=== PATIENT | male | born 1935 | race African-American/Black ===

== ENCOUNTER 2020-04-17 09:06 | Inpatient (IN) | payer MEDICARE, OTHER ==
[~2020-04-17] VITALS: Ht 175.3 cm; Wt 67.3 kg
[2020-04-17 09:10] VITALS: BP 108/58
[2020-04-17] MEDS ORDERED: Aspirin Baby 81mg ORAL ONE (09:15)
[2020-04-17] MEDS ORDERED: Aspirin Baby 81mg ONE (09:17)
[2020-04-17] MEDS ORDERED: Sodium Chloride 550 ML IV SCH (09:45)
[2020-04-17 09:48] LABS: BASOPHILS % (AUTO) 0.7 % (0.0-2.0); EOSINOPHILS % (AUTO) 0.1 % (0.0-3.0); HEMATOCRIT 28.4 % (42.0-52.0); HEMOGLOBIN 8.7 G/DL (14.2-18.0); LYMPHOCYTES % (AUTO) 13.7 % (20.0-45.0); MEAN CORPUSCULAR VOLUME 82 FL (80-99); MONOCYTES % (AUTO) 12.9 % (1.0-10.0); NEUTROPHILS % (AUTO) 72.5 % (45.0-75.0); PLATELET COUNT 124 K/UL (150-450); RED BLOOD COUNT 3.48 M/UL (4.70-6.10); RED CELL DISTRIBUTION WIDTH 15.5 % (11.6-14.8); WHITE BLOOD COUNT 7.6 K/UL (4.8-10.8)
[2020-04-17 09:56] LABS: ANION GAP 5 mmol/L (5-15); BLOOD UREA NITROGEN 23 mg/dL (7-18); CALCIUM 9.1 MG/DL (8.5-10.1); CARBON DIOXIDE 36 MMOL/L (21-32); CHLORIDE 104 MMOL/L (98-107); CREATININE 1.2 MG/DL (0.55-1.30); POTASSIUM 4.4 MMOL/L (3.5-5.1); SODIUM 144 MMOL/L (136-145)
[2020-04-17 10:00] LABS: ALANINE AMINOTRANSFERASE 14 U/L (12-78); ALBUMIN/GLOBULIN RATIO 0.7 (1.0-2.7); ALKALINE PHOSPHATASE 53 U/L (46-116); ASPARTATE AMINO TRANSFERASE 17 U/L (15-37); BILIRUBIN,TOTAL 0.4 MG/DL (0.2-1.0)
[2020-04-17] MEDS ORDERED: Metoprolol Tartrate 5mg/5ml Inj IVP ONE (10:15)
[2020-04-17 12:00] VITALS: BP 133/75
[2020-04-17] MEDS ORDERED: DOCUSATE SODIU100 MG ORAL (12:11)
[2020-04-17] MEDS ORDERED: MIRALAX17 G2 ORAL (12:12)
[2020-04-17] MEDS ORDERED: TRAMADOL HCL50 MG ORAL (12:12)
[2020-04-17] MEDS ORDERED: SIMVASTATIN10 MG ORAL (12:12)
[2020-04-17] MEDS ORDERED: MILK OF MA400 MG/51 ORAL (12:12)
[2020-04-17] MEDS ORDERED: METOPROLOL TART25 MG ORAL (12:12)
[2020-04-17] MEDS ORDERED: REFRESH PLUS1 EACH OP (12:12)
[2020-04-17] MEDS ORDERED: PRESERVISION A1 EAC2 PO (12:12)
[2020-04-17] MEDS ORDERED: PROSCAR5 MG ORAL (12:12)
[2020-04-17] MEDS ORDERED: METOPROLOL SUCC50 MG ORAL (12:12)
[2020-04-17] MEDS ORDERED: INCRUSE ELLI62.5 MCG IH (12:12)
[2020-04-17] MEDS ORDERED: LATANOPROST2.5 ML BOTH EYES (12:12)
[2020-04-17] MEDS ORDERED: NITRO0.4 SL (12:12)
[2020-04-17] MEDS ORDERED: FLUTICASONE PRO16 G1 NASAL (12:12)
[2020-04-17] MEDS ORDERED: THEOPHYLLI80 MG/151 PO (12:12)
[2020-04-17] MEDS ORDERED: VITAMIN C500 M1 ORAL (12:12)
[2020-04-17] MEDS ORDERED: TRUSOPT10 ML BOTH EYES (12:12)
[2020-04-17] MEDS ORDERED: Acetaminophen 500mg (ES) tab ORAL PRN (13:30)
--- NOTE | 2020-04-17 14:08 | Emergency Room Report ---
History of Present Illness General Chief Complaint: Chest Pain Source: Patient Present Illness HPI 85-year-old male here with chest pain. Patient is that his chest pain is substernal, does not otherwise radiate. Is pressure-like in nature. He has not attempted to take any medications to alleviate the pain. Worsened exertion. No fevers, chills, palpitations, shortness of breath, back pain, abdominal pain, nausea, vomiting, diarrhea, dysuria, leg swelling. 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 Past Medical History: No History, Except For Hx Hypertension: Yes Review of Systems All Other Systems: negative except mentioned in HPI Physical Exam Vital Signs Date Time Temp Pulse Resp B/P (MAP) Pulse Ox O2 Delivery O2 Flow Rate FiO2 04/17/20 08:58 98.1 138 20 132/76 (94) 96 Nasal Cannula 2.0 Sp02 EP Interpretation: reviewed, normal General Appearance: no apparent distress, alert, non-toxic Head: normocephalic, atraumatic Eyes: bilateral eye normal inspection, bilateral eye PERRL ENT: hearing grossly normal, normal pharynx, no angioedema, normal voice Neck: full range of motion, supple/symm/no masses Respiratory: chest non-tender, lungs clear, normal breath sounds, speaking full sentences, other - On submental oxygen at baseline. Normal oxygen saturation on 2 L nasal cannula and speaking comfortably in full sentences Cardiovascular #1: regular rate, rhythm, no edema Cardiovascular #2: 2+ carotid (R), 2+ carotid (L), 2+ radial (R), 2+ radial (L) , 2+ dorsalis pedis (R), 2+ dorsalis pedis (L) Gastrointestinal: normal bowel sounds, non tender, soft, non-distended, no guarding, no rebound Rectal: deferred Genitourinary: normal inspection, no CVA tenderness Musculoskeletal: back normal, normal range of motion, calf tenderness, gait/ station normal, non-tender Neurologic: alert, motor strength/tone normal, oriented x3, sensory intact, responsive, speech normal Psychiatric: judgement/insight normal, memory normal, mood/affect normal, no suicidal/homicidal ideation Reflexes: 3+ bicep (R), 3+ bicep (L), 3+ tricep (R), 3+ tricep (L), 3+ knee (R) , 3+ knee (L) Lymphatic: no adenopathy Medical Decision Making Diagnostic Impression: Primary Impression: Chest pain Additional Impression: NSTEMI (non-ST elevated myocardial infarction) ER Course Laboratory Tests Test 04/17/20 09:05 White Blood Count 7.6 K/UL (4.8-10.8) Red Blood Count 3.48 M/UL (4.70-6.10) L Hemoglobin 8.7 G/DL (14.2-18.0) L Hematocrit 28.4 % (42.0-52.0) L Mean Corpuscular Volume 82 FL (80-99) Mean Corpuscular Hemoglobin 24.9 PG (27.0-31.0) L Mean Corpuscular Hemoglobin Concent 30.5 G/DL (32.0-36.0) L Red Cell Distribution Width 15.5 % (11.6-14.8) H Platelet Count 124 K/UL (150-450) L Mean Platelet Volume 7.2 FL (6.5-10.1) Neutrophils (%) (Auto) 72.5 % (45.0-75.0) Lymphocytes (%) (Auto) 13.7 % (20.0-45.0) L Monocytes (%) (Auto) 12.9 % (1.0-10.0) H Eosinophils (%) (Auto) 0.1 % (0.0-3.0) Basophils (%) (Auto) 0.7 % (0.0-2.0) Sodium Level 144 MMOL/L (136-145) Potassium Level 4.4 MMOL/L (3.5-5.1) Chloride Level 104 MMOL/L (98-107) Carbon Dioxide Level 36 MMOL/L (21-32) H Anion Gap 5 mmol/L (5-15) Blood Urea Nitrogen 23 mg/dL (7-18) H Creatinine 1.2 MG/DL (0.55-1.30) Estimated Glomerular Filtration Rate > 60 mL/min (>60) Glucose Level 128 MG/DL (74-106) H Calcium Level 9.1 MG/DL (8.5-10.1) Total Bilirubin 0.4 MG/DL (0.2-1.0) Aspartate Amino Transferase (AST) 17 U/L (15-37) Alanine Aminotransferase (ALT) 14 U/L (12-78) Alkaline Phosphatase 53 U/L (46-116) Troponin I 0.065 ng/mL (0.000-0.056) Total Protein 7.2 G/DL (6.4-8.2) Albumin 3.0 G/DL (3.4-5.0) L Globulin 4.2 g/dL Albumin/Globulin Ratio 0.7 (1.0-2.7) L Microbiology Date/Time Source Procedure Growth Status 04/17/20 09:25 Nasopharynx SARS-CoV-2 RdRp Gene Assay - Final Complete Chest x-ray: Vascular congestion, right lower lung opacity small right pleural effusion indicate CHF, differential includes pneumonitis 84-year-old male here with chest pain. Patient was hemodynamically stable in the emergency department. Patient is on oxygen 2 L nasal cannula at baseline for COPD and CHF. Chest x-ray showed evidence of vascular congestion but patient did not show any evidence of respiratory distress and was not complaining of any shortness of breath whatsoever. CBC, CMP unremarkable. Troponin mildly elevated 0.065. Patient received aspirin. EKG did not show any evidence of acute myocardial infarction. Patient was admitted to telemetry. Last Vital Signs Date Time Temp Pulse Resp B/P (MAP) Pulse Ox O2 Delivery O2 Flow Rate FiO2 04/17/20 12:00 98.1 102 18 133/75 100 Nasal Cannula 2.0 Referrals: NON PHYSICIAN (PCP) Jhoan Pham M.D. Apr 17, 2020 14:08
[2020-04-17 16:00] VITALS: BP 120/61
--- NOTE | 2020-04-17 17:00 | Consultation ---
DATE OF CONSULTATION: 04/17/2020 INFECTIOUS DISEASE CONSULTATION CONSULTING PHYSICIAN: Jonah Arnold MD. PRIMARY ATTENDING: Baljinder Meraz MD. REASON FOR CONSULT: Abnormal chest x-ray, COPD. HISTORY OF PRESENT ILLNESS: This is an 84-year-old male admitted today from longterm because of substernal chest pain. Patient has COPD. Has chronic coughing and chronic shortness of breath and is on supplemental oxygen at nursing facility. PAST MEDICAL HISTORY: COPD, difficulty of walking, hypertension, anemia, dependence on oxygen. ALLERGIES: Allergic to lisinopril. MEDICATIONS: Got a dose of metoprolol, aspirin in ER. SOCIAL HISTORY: care home resident. Single. He states that he has a daughter who is in convalescent home. He is an ex-smoker, ex-drinking. REVIEW OF SYSTEMS: No fever. No chills. Has chronic cough, chronic shortness of breath. Substernal chest pain that is better, more with breathing. No nausea. No vomiting. No dysuria. Has difficulty of walking. PHYSICAL EXAMINATION: VITAL SIGNS: Temperature 98.1, pulse 102, blood pressure 133/75. GENERAL APPEARANCE: No acute distress. HEAD AND NECK: He has dentures. HEART: Tachycardic. LUNGS: Has decreased breathing sounds. Getting oxygen by nasal cannula. ABDOMEN: Flat, soft, nontender. EXTREMITIES: No edema. Has muscle atrophy. NEUROLOGIC: Awake, alert, oriented. LABORATORY DATA: Sodium 144, potassium 4.4, chloride 104, bicarb 36, BUN 23, creatinine 1.2, glucose is 128. Troponin was elevated at 0.065. WBC 7.6, hemoglobin 8.7, hematocrit 28.4, platelets is 124. COVID test was negative. Patient had a chest x-ray. Official report is pending, but seems to have some infiltrate. Chronic changes in the right lower lobe and left paratracheal area. IMPRESSION: COPD. Has chest pain and elevated troponin. Has tachycardia, anemia, and hypertension by history. RECOMMENDATION: Observe off antibiotic. We will follow up the labs and cultures. At the end of my exam, I thank Dr. Meraz for involving me in the care of this patient. Jonah Arnold M.D. DR: JESSIKA JOB#: [id number] CC: MAMI
--- NOTE | 2020-04-17 17:14 | Consultation ---
DATE OF CONSULTATION: 04/17/2020 PULMONARY CONSULTATION CONSULTING PHYSICIAN: Florian Crowley MD. HISTORY OF PRESENT ILLNESS: This is an 84-year-old male who was admitted to the hospital with chest pain. Patient presented to the hospital with pressure-like substernal chest pain. He was seen, evaluated, and subsequently admitted to the hospital for management and care. PAST MEDICAL HISTORY: Notable for hypertension. ALLERGIES: To lisinopril. HOME MEDICATIONS: Reviewed and reconciled in chart. REVIEW OF SYSTEMS: Denies any headaches, hematemesis, melena, hematochezia, night sweats, or weight loss. PHYSICAL EXAMINATION: GENERAL: Reveals an 84-year-old male. HEENT: Unremarkable. LUNGS: Clear breath sounds bilaterally. ABDOMEN: Soft. EXTREMITIES: There is no edema. NEUROLOGIC: Nonfocal. VITAL SIGNS: Blood pressure of 130/80, heart rate 84, respirations 18, O2 saturation 98% on 2L oxygen. LABORATORY DATA: Lab testing shows hemoglobin 8.7, otherwise normal CBC and BMP. Troponin 0.06, which is mildly elevated. IMPRESSION: 1. Chest pain. 2. Troponin leak. 3. Suspect non-STEMI. DISCUSSION: Admit to the hospital. Needs Cardiology evaluation. Blood pressure control. DVT prophylaxis. Cardiac diet. Serial troponins. We will follow carefully. Florian Crowley M.D. DR: BENNETT JOB#: [id number] CC:
[2020-04-17 20:00] VITALS: BP 141/77
--- NOTE | 2020-04-17 22:14 | History and Physical Report ---
DATE OF ADMISSION: 04/17/2020 HISTORY OF PRESENT ILLNESS: Patient admitted for chest pain, rule out acute coronary syndrome, rule out non-STEMI. Patient has been having chest pain for a couple of days. Troponin is borderline elevated. EKG shows old right bundle-branch block. Patient got aspirin in the emergency room as well as nitroglycerin. According to the ER doctor, COVID negative. Chest pain, shortness of breath, interstitial infiltrates. He apparently has a history of COVID positive in the past. Hemoglobin also was low. Denies shortness of breath. Denies cough. Denies nausea, vomiting, or diarrhea. Denies headaches. Denies fever or chills. Patient denies also palpitations. PAST MEDICAL HISTORY: Significant for hypertension, history of , glaucoma, BPH, constipation, hyperlipidemia, history of COPD. ALLERGIES: To lisinopril. PAST SURGICAL HISTORY: Unknown. FAMILY HISTORY: Noncontributory. SOCIAL HISTORY: No history of smoking, alcohol, or illicit drugs. MEDICATIONS: Zocor, metoprolol, finasteride, docusate. REVIEW OF SYSTEMS: HEENT: Denies headaches. RESPIRATORY: Denies shortness of breath. Denies cough. CARDIOVASCULAR: Does have chest pain for couple of days. Denies radiation as well. Patient has orthopnea. GASTROINTESTINAL: Denies nausea, vomiting, or diarrhea. EXTREMITIES: Does have chronic pain in extremities. . CENTRAL NERVOUS SYSTEM: Denies change in speech pattern. PHYSICAL EXAMINATION: VITAL SIGNS: Temperature is 98.1, pulse 102, blood pressure is 130/75. HEENT: PERRLA. CHEST: Clear to auscultation. CARDIOVASCULAR: Tachycardic. No murmur. GASTROINTESTINAL: Soft, nontender, nondistended. No organomegaly. EXTREMITIES: No edema. Moves all four extremities. NEUROLOGIC: Sensory intact to light touch. Reflexes equal on both sides. EKG shows right bundle-branch block, which is old. LABORATORY DATA: WBC of 7.6, hemoglobin 8.7, platelets 124. Sodium 144, potassium 4.4, BUN of 20, creatinine 1.2. Troponin 0.065. ASSESSMENT AND PLAN: Non-STEMI, rule out acute coronary syndrome. Also pneumonia on the x-ray, respiratory insufficiency, anemia. I have asked Dr. Jonah Arnold and Dr. Crowley to help with the management of pneumonia and Dr. Saeed for chest pain, rule out non-STEMI. Baljinder Meraz M.D. DR: KATIE JOB#: [id number] CC:
[2020-04-18] VITALS (10 sets, daily range): BP systolic 108–143; BP diastolic 53–84
[2020-04-18] MEDS ORDERED: dilTIAZem Premix 125mg/125ml 125 ML IVPB SCH ×2 (10:00→10:30)
[2020-04-18] MEDS ORDERED: Acetaminophen 500mg (ES) tab ORAL PRN (10:30)
--- NOTE | 2020-04-18 10:42 | Diagnostic Imaging Report ---
EXAM: XR Chest, 1 View CLINICAL HISTORY: CP TECHNIQUE: Frontal view of the chest. COMPARISON: Chest radiograph April 17, 2020 FINDINGS/IMPRESSION: Patchy airspace opacity within the right [id number] and left lower lung limon. The degree of opacity in the right lower lung field has mildly improved. Continued chest radiograph follow-up recommended. Stable bilateral pleural effusions, right great than left. Superimposed mild vascular congestion. No pneumothorax. Cardiomegaly. Calcified aorta.
--- NOTE | 2020-04-18 11:28 | Cardiac Electrophysiology PN ---
Subjective Subjective [id number] Objective Last 24 Hour Vital Signs Date Time Temp Pulse Resp B/P (MAP) Pulse Ox O2 Delivery O2 Flow Rate FiO2 04/18/20 08:54 126 114/69 04/18/20 08:02 Nasal Cannula 2.0 04/18/20 08:00 97.9 126 114/69 (84) 04/18/20 08:00 107 04/18/20 04:00 98.4 96 111/64 (80) 04/18/20 04:00 100 04/18/20 00:00 127 04/18/20 00:00 97.4 128 143/84 (103) 04/17/20 23:45 128 141/77 04/17/20 21:00 Nasal Cannula 2.0 04/17/20 20:00 98.9 123 141/77 (98) 04/17/20 20:00 121 04/17/20 16:00 107 04/17/20 16:00 98.9 111 120/61 (80) 04/17/20 14:31 Nasal Cannula 2.0 04/17/20 12:37 97.9 87 18 129/87 99 Nasal Cannula 2.0 04/17/20 12:00 98.1 102 18 133/75 100 Nasal Cannula 2.0 Intake and Output 04/17/20 04/18/20 19:00 07:00 Intake Total 120 ml 200 ml Output Total 200 ml 300 ml Balance -80 ml -100 ml Intake Oral 120 ml 200 ml Output Urine Total 200 ml 300 ml # Voids 2 Laboratory Tests Test 04/18/20 05:40 Troponin I 0.016 ng/mL (0.000-0.056) Microbiology Date/Time Source Procedure Growth Status 04/17/20 09:25 Nasopharynx SARS-CoV-2 RdRp Gene Assay - Final Complete 04/17/20 12:15 Rectum Received Cade Saeed MD Apr 18, 2020 11:28
[2020-04-18] MEDS ORDERED: Amiodarone 200mg tab ORAL SCH (11:30)
--- NOTE | 2020-04-18 12:42 | Pulmonology Progress Note ---
Subjective Interval Events: Transferred to ICU due to rapid a fib Constitutional: Reports: no symptoms HEENT: Repors: no symptoms Respiratory: Reports: no symptoms Cardiovascular: Reports: no symptoms Allergies: Coded Allergies: LISINOPRIL (Verified Allergy, Unknown, 04/17/20) Objective Last 24 Hour Vital Signs Date Time Temp Pulse Resp B/P (MAP) Pulse Ox O2 Delivery O2 Flow Rate FiO2 04/18/20 12:00 98.0 103 30 108/53 (71) 99 04/18/20 11:46 105 04/18/20 09:54 138 04/18/20 08:54 126 114/69 04/18/20 08:02 Nasal Cannula 2.0 04/18/20 08:00 97.9 126 114/69 (84) 04/18/20 08:00 107 04/18/20 04:00 98.4 96 111/64 (80) 04/18/20 04:00 100 04/18/20 00:00 127 04/18/20 00:00 97.4 128 143/84 (103) 04/17/20 23:45 128 141/77 04/17/20 21:00 Nasal Cannula 2.0 04/17/20 20:00 98.9 123 141/77 (98) 04/17/20 20:00 121 04/17/20 16:00 107 04/17/20 16:00 98.9 111 120/61 (80) 04/17/20 14:31 Nasal Cannula 2.0 Intake and Output 04/17/20 04/18/20 19:00 07:00 Intake Total 120 ml 200 ml Output Total 200 ml 300 ml Balance -80 ml -100 ml Intake Oral 120 ml 200 ml Output Urine Total 200 ml 300 ml # Voids 2 General Appearance: no acute distress HEENT: normocephalic Respiratory: chest wall non-tender, decreased breath sounds, accessory muscle use Cardiovascular: normal peripheral pulses Abdomen: normal bowel sounds Microbiology Date/Time Source Procedure Growth Status 04/17/20 09:25 Nasopharynx SARS-CoV-2 RdRp Gene Assay - Final Complete 04/17/20 12:15 Rectum Received Laboratory Tests 04/18/20 05:40: Troponin I 0.016 04/18/20 11:48: Troponin I [Pending] Current Medications Medications (Trade) Dose Ordered Sig/Eulalia Route PRN Reason Start Time Stop Time Status Last Admin Dose Admin Acetaminophen (Tylenol) 500 mg Q4H PRN ORAL Mild Pain (Pain Scale 1-3) 04/18/20 10:30 05/17/20 10:29 Amiodarone HCl (Cordarone) 400 mg EVERY 12 HOURS ORAL 04/18/20 21:00 07/17/20 20:59 Aspirin (Ecotrin) 81 mg DAILY ORAL 04/19/20 09:00 06/03/20 08:59 Atorvastatin Calcium (Lipitor) 20 mg BEDTIME ORAL 04/18/20 21:00 07/17/20 20:59 Metoprolol Tartrate (Lopressor) 50 mg Q12HR ORAL 04/18/20 21:00 07/17/20 20:59 Assessment/Plan Assessment/Plan IMPRESSION: 1. Chest pain. 2. Troponin leak. 3. Suspect non-STEMI. 4. COPD DISCUSSION: Noted Cardiology evaluation. Blood pressure control. DVT prophylaxis. Cardiac diet. Serial troponins. I will follow carefully. Will add inhaled atrovent and budesonide Azar Garrett Omar Syed MD Apr 18, 2020 12:42
--- NOTE | 2020-04-18 12:52 | Infectious Diseases Prog Note ---
Assessment/Plan Assessment/Plan IMPRESSION: COPD. Chest pain and elevated troponin. Atrial fibrillation & RVR Anemia, Hypertension RECOMMENDATION: Observe off antibiotic. Subjective ROS Limited/Unobtainable: No Constitutional: Reports: no symptoms Respiratory: Reports: productive cough Cardiovascular: Reports: chest pain, other - transferred to ICU because of Atrial fibrillation & RVR Allergies: Coded Allergies: LISINOPRIL (Verified Allergy, Unknown, 04/17/20) Objective Last 24 Hour Vital Signs Date Time Temp Pulse Resp B/P (MAP) Pulse Ox O2 Delivery O2 Flow Rate FiO2 04/18/20 12:00 98.0 103 30 108/53 (71) 99 04/18/20 11:46 105 04/18/20 09:54 138 04/18/20 08:54 126 114/69 04/18/20 08:02 Nasal Cannula 2.0 04/18/20 08:00 97.9 126 114/69 (84) 04/18/20 08:00 107 04/18/20 04:00 98.4 96 111/64 (80) 04/18/20 04:00 100 04/18/20 00:00 127 04/18/20 00:00 97.4 128 143/84 (103) 04/17/20 23:45 128 141/77 04/17/20 21:00 Nasal Cannula 2.0 04/17/20 20:00 98.9 123 141/77 (98) 04/17/20 20:00 121 04/17/20 16:00 107 04/17/20 16:00 98.9 111 120/61 (80) 04/17/20 14:31 Nasal Cannula 2.0 Height (Feet): 5 Height (Inches): 9.00 Weight (Pounds): 159 HEENT: mucous membranes moist Respiratory/Chest: decreased breath sounds Cardiovascular: tachycardia Abdomen: soft, non tender Extremities: no edema Neurologic/Psychiatric: alert, oriented x 3, responsive Microbiology Date/Time Source Procedure Growth Status 04/17/20 09:25 Nasopharynx SARS-CoV-2 RdRp Gene Assay - Final Complete 04/17/20 12:15 Rectum Received Laboratory Tests Test 04/18/20 05:40 04/18/20 11:48 Troponin I 0.016 ng/mL (0.000-0.056) Pending Current Medications Medications (Trade) Dose Ordered Sig/Eulalia Route PRN Reason Start Time Stop Time Status Last Admin Dose Admin Acetaminophen (Tylenol) 500 mg Q4H PRN ORAL Mild Pain (Pain Scale 1-3) 04/18/20 10:30 05/17/20 10:29 Amiodarone HCl (Cordarone) 400 mg EVERY 12 HOURS ORAL 04/18/20 21:00 07/17/20 20:59 Aspirin (Ecotrin) 81 mg DAILY ORAL 04/19/20 09:00 06/03/20 08:59 Atorvastatin Calcium (Lipitor) 20 mg BEDTIME ORAL 04/18/20 21:00 07/17/20 20:59 Budesonide (Pulmicort) 0.25 mg EVERY 12 HOURS N 04/18/20 21:00 07/17/20 20:59 UNV Ipratropium [place] (Atrovent) 500 mcg Q6HRT N 04/18/20 13:00 04/23/20 12:59 UNV Methylprednisolone Sodium Succinate (Solu-MEDROL) 40 mg EVERY 6 HOURS IVP 04/18/20 12:45 07/17/20 12:44 UNV Metoprolol Tartrate (Lopressor) 50 mg Q12HR ORAL 04/18/20 21:00 07/17/20 20:59 Jonah Arnold MD Apr 18, 2020 12:52
[2020-04-18] MEDS: Solu-MEDROL 40mg Inj IVP SCH ×2 (13:32→20:28)
[2020-04-18] MEDS: Ipratropium 0.02% Inh Soln 2.5ml UD HHN SCH ×2 (14:15→19:34)
--- NOTE | 2020-04-18 15:59 | Consultation ---
DATE OF CONSULTATION: 04/18/2020 CARDIOLOGY CONSULTATION CONSULTING PHYSICIAN: Cade Saeed MD REFERRING PHYSICIAN: Baljinder Meraz MD REASON FOR CONSULTATION: Atrial fibrillation with rapid ventricular response. HISTORY OF PRESENT ILLNESS: The patient is an 84-year-old gentleman with history of hypertension, who presented to the emergency room complaining of substernal chest pain that does not radiate. The pain was pressure-like. The patient was admitted to telemetry floor, however, this morning developed atrial fibrillation with rapid ventricular response with the heart rate of 150s. This was confirmed by a 12-lead electrocardiogram. The patient was then transferred to intensive care unit to be started on Cardizem drip. The patient already received metoprolol 25 mg b.i.d. At the time of my evaluation, the patient is in intensive care unit. Denies any chest pain. REVIEW OF SYSTEMS: Negative other than what was mentioned in the history of present illness. PAST MEDICAL HISTORY: As mentioned above. FAMILY HISTORY: Noncontributory. SOCIAL HISTORY: Does not smoke or drink alcohol. PHYSICAL EXAMINATION: VITAL SIGNS: Show blood pressure of 114/69, pulse 140 that currently improved to 110 as he converted to sinus rhythm, and respirations 18. HEAD AND NECK: Shows positive JVD. LUNGS: Decreased breath sounds. CARDIOVASCULAR: Shows regular S1 and S2 with no gallop or murmur. ABDOMEN: Soft. EXTREMITIES: No pitting edema. LABORATORY AND DIAGNOSTIC DATA: His initial EKG on April 17 showed sinus tachycardia rate at 137 and incomplete right bundle-branch block. His EKG from today at 8:17 a.m. showed atrial fibrillation with rapid ventricular response at 151 beats per minute with inferolateral T-wave inversion suggestive of inferior ischemia. Labs show white count 7.6, hemoglobin 8.7, hematocrit 28.4, platelet count 124,000. Sodium 144, potassium 4.4, BUN of 20, creatinine 1.2, and glucose of 128. First troponin 0.065 and second troponin 0.016. ASSESSMENT AND PLAN: 1. [id number] myocardial infarction with chest pain, inferolateral T-wave inversion, and elevated troponin. This could have been precipitated by atrial fibrillation. His second troponin today is negative. We will get an echocardiogram to evaluate for ejection fraction and wall motion abnormality. Continue on aspirin and increase the metoprolol to 50 mg b.i.d. I will start the patient also on amiodarone 400 mg b.i.d. to prevent recurrence of atrial fibrillation. 2. Newly diagnosed atrial fibrillation with rapid ventricular response. Again, we will start the patient on amiodarone 400 mg twice a day and metoprolol. The patient already converted to sinus rhythm. If he continues to have recurrence of atrial fibrillation, the patient will need anticoagulation. 3. Hypertension. Maximize beta-gunnar. Doubt he has been in atrial fibrillation with this. 4. Anemia. Hemoglobin of 8.7. Thank you very much for allowing me to participate in the care of this patient. Please do not hesitate to contact me for any questions regarding my evaluation. Cade Saeed M.D. DR: TRACI JOB#: [id number] CC:
[2020-04-18] MEDS: Metoprolol Tartrate 50mg tab ORAL SCH (20:28)
[2020-04-18] MEDS: Amiodarone 200mg tab ORAL SCH (20:29)
[2020-04-18] MEDS ORDERED: Atorvastatin 20mg tab ORAL SCH (21:00)
[2020-04-18] MEDS: Budesonide HHN 0.25mg/2ml ud HHN SCH (21:06)
--- NOTE | 2020-04-18 21:11 | General Progress Note ---
Assessment/Plan Problem List: (1) Chest pain ICD Codes: R07.9 - Chest pain, unspecified SNOMED: 02050190 (2) NSTEMI (non-ST elevated myocardial infarction) ICD Codes: I21.4 - Non-ST elevation (NSTEMI) myocardial infarction SNOMED: 78362296 Status: progressing Assessment/Plan: afebrile cp r/o acs vitals stable nstemi check trop Subjective ROS Limited/Unobtainable: Yes Allergies: Coded Allergies: LISINOPRIL (Verified Allergy, Unknown, 04/17/20) Objective Last 24 Hour Vital Signs Date Time Temp Pulse Resp B/P (MAP) Pulse Ox O2 Delivery O2 Flow Rate FiO2 04/18/20 21:07 84 20 100 Nasal Cannula 2.0 28 81 20 100 04/18/20 20:28 98 126/70 04/18/20 20:00 92 04/18/20 20:00 Nasal Cannula 2.0 04/18/20 19:37 98.5 90 20 120/71 (87) 99 04/18/20 19:35 99 22 100 Nasal Cannula 3.0 32 96 22 100 04/18/20 19:35 95 22 99 Nasal Cannula 3.0 32 04/18/20 16:00 116 04/18/20 16:00 98.2 114 30 131/72 (91) 98 04/18/20 16:00 Nasal Cannula 2.0 04/18/20 15:00 109 32 125/68 (87) 99 04/18/20 14:15 108 26 98 Nasal Cannula 3.0 32 04/18/20 14:15 108 26 94 Nasal Cannula 3.0 32 106 34 98 04/18/20 14:00 109 42 112/73 (86) 97 04/18/20 13:00 111 27 116/72 (87) 97 04/18/20 12:00 98.0 103 30 108/53 (71) 99 04/18/20 12:00 Room Air 04/18/20 11:46 105 04/18/20 11:00 107 30 121/54 (76) 99 04/18/20 09:54 138 04/18/20 08:54 126 114/69 04/18/20 08:02 Nasal Cannula 2.0 04/18/20 08:00 97.9 126 114/69 (84) 04/18/20 08:00 107 04/18/20 04:00 98.4 96 111/64 (80) 04/18/20 04:00 100 04/18/20 00:00 127 04/18/20 00:00 97.4 128 143/84 (103) 04/17/20 23:45 128 141/77 Intake and Output 04/17/20 04/18/20 19:00 07:00 Intake Total 120 ml 200 ml Output Total 200 ml 300 ml Balance -80 ml -100 ml Intake Oral 120 ml 200 ml Output Urine Total 200 ml 300 ml # Voids 2 Laboratory Tests 04/18/20 05:40: Troponin I 0.016 04/18/20 11:48: Troponin I 0.028 04/18/20 18:00: Troponin I 0.024 Height (Feet): 5 Height (Inches): 9.00 Weight (Pounds): 159 Baljinder Meraz MD Apr 18, 2020 21:11
[2020-04-19] VITALS: BP 113/66
[2020-04-19] MEDS: Ipratropium 0.02% Inh Soln 2.5ml UD HHN SCH ×4 (01:01→19:09)
[2020-04-19] MEDS: Solu-MEDROL 40mg Inj IVP SCH ×4 (01:58→21:11)
[2020-04-19 04:00] VITALS: BP 125/73
[2020-04-19] MEDS: Budesonide HHN 0.25mg/2ml ud HHN SCH ×2 (07:55→21:41)
[2020-04-19 07:59] VITALS: BP 115/63
[2020-04-19] MEDS: Amiodarone 200mg tab ORAL SCH ×2 (08:34→21:10)
[2020-04-19] MEDS: Metoprolol Tartrate 50mg tab ORAL SCH ×2 (08:35→21:10)
[2020-04-19] MEDS ORDERED: Aspirin EC 81mg tab ORAL SCH (09:00)
--- NOTE | 2020-04-19 10:25 | Pulmonology Progress Note ---
Subjective ROS Limited/Unobtainable: Yes Interval Events: Now in [facility]; feeling better Constitutional: Reports: no symptoms HEENT: Repors: no symptoms Respiratory: Reports: no symptoms Cardiovascular: Reports: no symptoms Allergies: Coded Allergies: LISINOPRIL (Verified Allergy, Unknown, 04/17/20) Objective Last 24 Hour Vital Signs Date Time Temp Pulse Resp B/P (MAP) Pulse Ox O2 Delivery O2 Flow Rate FiO2 04/19/20 08:35 86 137/66 04/19/20 08:05 77 20 100 Nasal Cannula 2.0 28 79 18 99 04/19/20 08:00 Nasal Cannula 1.0 04/19/20 08:00 77 04/19/20 07:59 96.4 67 24 115/63 (80) 100 04/19/20 07:45 75 18 100 Nasal Cannula 2.0 28 74 18 98 04/19/20 04:00 Nasal Cannula 2.0 04/19/20 04:00 97.7 71 18 125/73 (90) 99 04/19/20 04:00 71 04/19/20 01:02 78 20 100 Nasal Cannula 2.0 28 77 20 99 04/19/20 00:00 Nasal Cannula 2.0 04/19/20 00:00 96.9 73 20 113/66 (82) 99 04/18/20 23:30 70 04/18/20 21:07 84 20 100 Nasal Cannula 2.0 28 81 20 100 04/18/20 20:28 98 126/70 04/18/20 20:00 92 04/18/20 20:00 Nasal Cannula 2.0 04/18/20 20:00 Nasal Cannula 2.0 04/18/20 19:37 98.5 90 20 120/71 (87) 99 04/18/20 19:35 99 22 100 Nasal Cannula 3.0 32 96 22 100 04/18/20 19:35 95 22 99 Nasal Cannula 3.0 32 04/18/20 16:00 116 04/18/20 16:00 98.2 114 30 131/72 (91) 98 04/18/20 16:00 Nasal Cannula 2.0 04/18/20 15:00 109 32 125/68 (87) 99 04/18/20 14:15 108 26 98 Nasal Cannula 3.0 32 04/18/20 14:15 108 26 94 Nasal Cannula 3.0 32 106 34 98 04/18/20 14:00 109 42 112/73 (86) 97 04/18/20 13:00 111 27 116/72 (87) 97 04/18/20 12:00 98.0 103 30 108/53 (71) 99 04/18/20 12:00 Room Air 04/18/20 11:46 105 04/18/20 11:00 107 30 121/54 (76) 99 Intake and Output 04/18/20 04/19/20 19:00 07:00 Intake Total 280 ml 50 ml Output Total 100 ml 400 ml Balance 180 ml -350 ml Intake Oral 280 ml 50 ml Output Urine Total 100 ml 400 ml General Appearance: no acute distress HEENT: normocephalic Respiratory: chest wall non-tender, decreased breath sounds, accessory muscle use Cardiovascular: normal peripheral pulses Abdomen: normal bowel sounds Microbiology Date/Time Source Procedure Growth Status 04/17/20 09:25 Nasopharynx SARS-CoV-2 RdRp Gene Assay - Final Complete 04/17/20 12:15 Rectum Received Laboratory Tests 04/18/20 11:48: Troponin I 0.028 04/18/20 18:00: Troponin I 0.024 04/19/20 02:45: Troponin I 0.001, Pro-B-Type Natriuretic Peptide 56109V, Thyroid Stimulating Hormone (TSH) 1.616, Free Thyroxine 0.99 Current Medications Medications (Trade) Dose Ordered Sig/Eulalia Route PRN Reason Start Time Stop Time Status Last Admin Dose Admin Acetaminophen (Tylenol) 500 mg Q4H PRN ORAL Mild Pain (Pain Scale 1-3) 04/18/20 10:30 05/17/20 10:29 Amiodarone HCl (Cordarone) 400 mg EVERY 12 HOURS ORAL 04/18/20 21:00 07/17/20 20:59 04/19/20 08:34 Aspirin (Ecotrin) 81 mg DAILY ORAL 04/19/20 09:00 06/03/20 08:59 04/19/20 08:35 Atorvastatin Calcium (Lipitor) 20 mg BEDTIME ORAL 04/18/20 21:00 07/17/20 20:59 04/18/20 20:29 Budesonide (Pulmicort) 0.25 mg EVERY 12 HOURS HHN 04/18/20 21:00 07/17/20 20:59 04/19/20 07:55 Ipratropium [place] (Atrovent) 500 mcg Q6HRT HHN 04/18/20 13:00 04/23/20 12:59 04/19/20 07:35 Methylprednisolone Sodium Succinate (Solu-MEDROL) 40 mg Q6H IVP 04/18/20 14:00 07/17/20 13:59 04/19/20 08:34 Metoprolol Tartrate (Lopressor) 50 mg Q12HR ORAL 04/18/20 21:00 07/17/20 20:59 04/19/20 08:35 Assessment/Plan Assessment/Plan IMPRESSION: 1. Chest pain. 2. Troponin leak. 3. Suspect non-STEMI. 4. COPD DISCUSSION: Noted Cardiology evaluation. Blood pressure control. DVT prophylaxis. Cardiac diet. Serial troponins. I will follow carefully. On 2L/min nasal o2 Continue inhaled atrovent and budesonide Azar Garrett Omar Syed MD Apr 19, 2020 10:25
--- NOTE | 2020-04-19 11:40 | Infectious Diseases Prog Note ---
Assessment/Plan Assessment/Plan IMPRESSION: COPD. Chest pain and elevated troponin. Atrial fibrillation & RVR Anemia, Hypertension RECOMMENDATION: Observe off antibiotic. Subjective ROS Limited/Unobtainable: No Constitutional: Reports: no symptoms, other - doing better tranferred from ICU to [facility] Respiratory: Reports: shortness of breath; Denies: dry cough, productive cough Cardiovascular: Denies: chest pain Gastrointestinal/Abdominal: Reports: no symptoms Genitourinary: Reports: no symptoms Allergies: Coded Allergies: LISINOPRIL (Verified Allergy, Unknown, 04/17/20) Objective Last 24 Hour Vital Signs Date Time Temp Pulse Resp B/P (MAP) Pulse Ox O2 Delivery O2 Flow Rate FiO2 04/19/20 08:35 86 137/66 04/19/20 08:05 77 20 100 Nasal Cannula 2.0 28 79 18 99 04/19/20 08:00 Nasal Cannula 1.0 04/19/20 08:00 77 04/19/20 07:59 96.4 67 24 115/63 (80) 100 04/19/20 07:45 75 18 100 Nasal Cannula 2.0 28 74 18 98 04/19/20 04:00 Nasal Cannula 2.0 04/19/20 04:00 97.7 71 18 125/73 (90) 99 04/19/20 04:00 71 04/19/20 01:02 78 20 100 Nasal Cannula 2.0 28 77 20 99 04/19/20 00:00 Nasal Cannula 2.0 04/19/20 00:00 96.9 73 20 113/66 (82) 99 04/18/20 23:30 70 04/18/20 21:07 84 20 100 Nasal Cannula 2.0 28 81 20 100 04/18/20 20:28 98 126/70 04/18/20 20:00 92 04/18/20 20:00 Nasal Cannula 2.0 04/18/20 20:00 Nasal Cannula 2.0 04/18/20 19:37 98.5 90 20 120/71 (87) 99 04/18/20 19:35 99 22 100 Nasal Cannula 3.0 32 96 22 100 04/18/20 19:35 95 22 99 Nasal Cannula 3.0 32 04/18/20 16:00 116 04/18/20 16:00 98.2 114 30 131/72 (91) 98 04/18/20 16:00 Nasal Cannula 2.0 04/18/20 15:00 109 32 125/68 (87) 99 04/18/20 14:15 108 26 98 Nasal Cannula 3.0 32 04/18/20 14:15 108 26 94 Nasal Cannula 3.0 32 106 34 98 04/18/20 14:00 109 42 112/73 (86) 97 04/18/20 13:00 111 27 116/72 (87) 97 04/18/20 12:00 98.0 103 30 108/53 (71) 99 04/18/20 12:00 Room Air 04/18/20 11:46 105 Height (Feet): 5 Height (Inches): 9.00 Weight (Pounds): 159 HEENT: mucous membranes moist Respiratory/Chest: decreased breath sounds, other - oxygen by naswal cannula Cardiovascular: normal rate Abdomen: soft, non tender Extremities: no edema, other - finger clubbing Neurologic/Psychiatric: alert, responsive Musculoskeletal: atrophy Microbiology Date/Time Source Procedure Growth Status 04/17/20 09:25 Nasopharynx SARS-CoV-2 RdRp Gene Assay - Final Complete 04/17/20 12:15 Rectum Received Laboratory Tests Test 04/18/20 11:48 04/18/20 18:00 04/19/20 02:45 Troponin I 0.028 ng/mL (0.000-0.056) 0.024 ng/mL (0.000-0.056) 0.001 ng/mL (0.000-0.056) Pro-B-Type Natriuretic Peptide 97788 pg/mL (0-125) H Thyroid Stimulating Hormone (TSH) 1.616 uiU/mL (0.358-3.740) Free Thyroxine 0.99 NG/DL (0.76-1.46) Current Medications Medications (Trade) Dose Ordered Sig/Eulalia Route PRN Reason Start Time Stop Time Status Last Admin Dose Admin Acetaminophen (Tylenol) 500 mg Q4H PRN ORAL Mild Pain (Pain Scale 1-3) 04/18/20 10:30 05/17/20 10:29 Amiodarone HCl (Cordarone) 400 mg EVERY 12 HOURS ORAL 04/18/20 21:00 07/17/20 20:59 04/19/20 08:34 Aspirin (Ecotrin) 81 mg DAILY ORAL 04/19/20 09:00 06/03/20 08:59 04/19/20 08:35 Atorvastatin Calcium (Lipitor) 20 mg BEDTIME ORAL 04/18/20 21:00 07/17/20 20:59 04/18/20 20:29 Budesonide (Pulmicort) 0.25 mg EVERY 12 HOURS [facility] 04/18/20 21:00 07/17/20 20:59 04/19/20 07:55 Ipratropium [place] (Atrovent) 500 mcg Q6HRT [facility] 04/18/20 13:00 04/23/20 12:59 04/19/20 07:35 Methylprednisolone Sodium Succinate (Solu-MEDROL) 40 mg Q6H IVP 04/18/20 14:00 07/17/20 13:59 04/19/20 08:34 Metoprolol Tartrate (Lopressor) 50 mg Q12HR ORAL 04/18/20 21:00 07/17/20 20:59 04/19/20 08:35 Jonah Arnold MD Apr 19, 2020 11:40
[2020-04-19 12:00] VITALS: BP 143/83
--- NOTE | 2020-04-19 12:22 | Cardiac Electrophysiology PN ---
Assessment/Plan Assessment/Plan 1. [id number] myocardial infarction with chest pain, inferolateral T-wave inversion, and elevated troponin. Likely precipitated by atrial fibrillation. Four follow up troponins are negative and echocardiogram showed EF 55%. Continue on aspirin and metoprolol 50 mg b.i.d. and amiodarone 400 mg b.i.d. 2. Newly diagnosed atrial fibrillation with rapid ventricular response. Again, we will start the patient on amiodarone 400 mg twice a day and metoprolol. The patient already converted to sinus rhythm. If he continues to have recurrence of atrial fibrillation, the patient will need anticoagulation. 3. Hypertension. Maximize beta-gunnar. 4. Anemia. Hemoglobin of 8.7. Subjective Subjective In SR with BBB. Transferred to [facility]. No atrial fib. On 2 liter NC Objective Last 24 Hour Vital Signs Date Time Temp Pulse Resp B/P (MAP) Pulse Ox O2 Delivery O2 Flow Rate FiO2 04/19/20 08:35 86 137/66 04/19/20 08:05 77 20 100 Nasal Cannula 2.0 28 79 18 99 04/19/20 08:00 Nasal Cannula 1.0 04/19/20 08:00 77 04/19/20 07:59 96.4 67 24 115/63 (80) 100 04/19/20 07:45 75 18 100 Nasal Cannula 2.0 28 74 18 98 04/19/20 04:00 Nasal Cannula 2.0 04/19/20 04:00 97.7 71 18 125/73 (90) 99 04/19/20 04:00 71 04/19/20 01:02 78 20 100 Nasal Cannula 2.0 28 77 20 99 04/19/20 00:00 Nasal Cannula 2.0 04/19/20 00:00 96.9 73 20 113/66 (82) 99 04/18/20 23:30 70 04/18/20 21:07 84 20 100 Nasal Cannula 2.0 28 81 20 100 04/18/20 20:28 98 126/70 04/18/20 20:00 92 04/18/20 20:00 Nasal Cannula 2.0 04/18/20 20:00 Nasal Cannula 2.0 04/18/20 19:37 98.5 90 20 120/71 (87) 99 04/18/20 19:35 99 22 100 Nasal Cannula 3.0 32 96 22 100 04/18/20 19:35 95 22 99 Nasal Cannula 3.0 32 04/18/20 16:00 116 04/18/20 16:00 98.2 114 30 131/72 (91) 98 04/18/20 16:00 Nasal Cannula 2.0 04/18/20 15:00 109 32 125/68 (87) 99 04/18/20 14:15 108 26 98 Nasal Cannula 3.0 32 04/18/20 14:15 108 26 94 Nasal Cannula 3.0 32 106 34 98 04/18/20 14:00 109 42 112/73 (86) 97 04/18/20 13:00 111 27 116/72 (87) 97 Intake and Output 04/18/20 04/19/20 19:00 07:00 Intake Total 280 ml 50 ml Output Total 100 ml 600 ml Balance 180 ml -550 ml Intake Oral 280 ml 50 ml Output Urine Total 100 ml 600 ml Laboratory Tests Test 04/18/20 18:00 04/19/20 02:45 Troponin I 0.024 ng/mL (0.000-0.056) 0.001 ng/mL (0.000-0.056) Pro-B-Type Natriuretic Peptide 85081 pg/mL (0-125) H Thyroid Stimulating Hormone (TSH) 1.616 uiU/mL (0.358-3.740) Free Thyroxine 0.99 NG/DL (0.76-1.46) Microbiology Date/Time Source Procedure Growth Status 04/17/20 09:25 Nasopharynx SARS-CoV-2 RdRp Gene Assay - Final Complete 04/17/20 12:15 Rectum Received Objective HEAD AND NECK: Shows positive JVD. LUNGS: Decreased breath sounds. CARDIOVASCULAR: Shows regular S1 and S2 with no gallop or murmur. ABDOMEN: Soft. EXTREMITIES: No pitting edema. Cade Saeed MD Apr 19, 2020 12:22
[2020-04-19 16:00] VITALS: BP 126/67
[2020-04-19] MEDS ORDERED: Acetaminophen 500mg (ES) tab ORAL PRN (18:21)
[2020-04-19 20:00] VITALS: BP 135/73
[2020-04-19] MEDS ORDERED: Metoprolol Tartrate 50mg tab ORAL SCH (21:00)
[2020-04-19] MEDS ORDERED: Atorvastatin 20mg tab ORAL SCH (21:00)
[2020-04-19] MEDS ORDERED: Amiodarone 200mg tab ORAL SCH (21:00)
[2020-04-19] MEDS: Atorvastatin 20mg tab ORAL SCH (21:10)
--- NOTE | 2020-04-19 21:10 | General Progress Note ---
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 cp nstemi Subjective ROS Limited/Unobtainable: Yes Allergies: Coded Allergies: LISINOPRIL (Verified Allergy, Unknown, 04/17/20) Objective Last 24 Hour Vital Signs Date Time Temp Pulse Resp B/P (MAP) Pulse Ox O2 Delivery O2 Flow Rate FiO2 04/19/20 19:09 78 18 98 Nasal Cannula 2.0 28 72 18 94 04/19/20 16:00 Nasal Cannula 1.0 04/19/20 16:00 97.3 88 30 126/67 (86) 96 04/19/20 15:53 81 04/19/20 12:38 79 18 99 Nasal Cannula 2.0 28 77 18 97 04/19/20 12:00 97.3 79 23 143/83 (103) 93 04/19/20 12:00 82 04/19/20 12:00 Nasal Cannula 2.0 04/19/20 08:35 86 137/66 04/19/20 08:05 77 20 100 Nasal Cannula 2.0 28 79 18 99 04/19/20 08:00 Nasal Cannula 1.0 04/19/20 08:00 77 04/19/20 07:59 96.4 67 24 115/63 (80) 100 04/19/20 07:45 75 18 100 Nasal Cannula 2.0 28 74 18 98 04/19/20 04:00 Nasal Cannula 2.0 04/19/20 04:00 97.7 71 18 125/73 (90) 99 04/19/20 04:00 71 04/19/20 01:02 78 20 100 Nasal Cannula 2.0 28 77 20 99 04/19/20 00:00 Nasal Cannula 2.0 04/19/20 00:00 96.9 73 20 113/66 (82) 99 04/18/20 23:30 70 Intake and Output 04/18/20 04/19/20 19:00 07:00 Intake Total 280 ml 50 ml Output Total 100 ml 600 ml Balance 180 ml -550 ml Intake Oral 280 ml 50 ml Output Urine Total 100 ml 600 ml Laboratory Tests 04/19/20 02:45: Troponin I 0.001, Pro-B-Type Natriuretic Peptide 98135B, Thyroid Stimulating Hormone (TSH) 1.616, Free Thyroxine 0.99 Height (Feet): 5 Height (Inches): 9.00 Weight (Pounds): 159 Baljinder Meraz MD Apr 19, 2020 21:10
[2020-04-20] VITALS: BP 128/69
[2020-04-20] MEDS: Ipratropium 0.02% Inh Soln 2.5ml UD HHN SCH ×4 (01:23→19:42)
--- NOTE | 2020-04-20 01:38 | Cardiology Report ---
APPROVED REPORT EKG Measurement Heart [id number] <Conclusion> Sinus tachycardia with premature atrial complexes Right bundle branch block Abnormal ECG
--- NOTE | 2020-04-20 01:57 | Cardiology Report ---
APPROVED REPORT EKG Measurement Heart [id number] <Conclusion> Poor data quality, interpretation may be adversely affected Atrial fibrillation with rapid ventricular response Anterolateral infarct, age undetermined ST & T wave abnormality, consider inferior ischemia Abnormal ECG
[2020-04-20] MEDS: Solu-MEDROL 40mg Inj IVP SCH ×4 (02:10→20:29)
[2020-04-20 04:00] VITALS: BP 120/63
[2020-04-20 08:00] VITALS: BP 111/60
[2020-04-20] MEDS: Budesonide HHN 0.25mg/2ml ud HHN SCH ×2 (08:42→19:51)
[2020-04-20] MEDS: Metoprolol Tartrate 50mg tab ORAL SCH ×2 (08:50→20:30)
[2020-04-20] MEDS: Amiodarone 200mg tab ORAL SCH (08:50)
[2020-04-20] MEDS: Aspirin EC 81mg tab ORAL SCH (08:50)
--- NOTE | 2020-04-20 09:51 | Infectious Diseases Prog Note ---
Assessment/Plan Assessment/Plan IMPRESSION: COPD. Chest pain and elevated troponin. Atrial fibrillation & RVR Anemia, Hypertension RECOMMENDATION: Observe off antibiotic. Subjective ROS Limited/Unobtainable: No Constitutional: Reports: no symptoms Respiratory: Reports: no symptoms Cardiovascular: Reports: no symptoms Gastrointestinal/Abdominal: Reports: no symptoms Genitourinary: Reports: no symptoms Allergies: Coded Allergies: LISINOPRIL (Verified Allergy, Unknown, 04/17/20) Objective Last 24 Hour Vital Signs Date Time Temp Pulse Resp B/P (MAP) Pulse Ox O2 Delivery O2 Flow Rate FiO2 04/20/20 08:50 86 111/60 04/20/20 08:41 86 20 99 Nasal Cannula 2.0 28 85 20 97 04/20/20 08:00 97.7 67 22 111/60 (77) 99 04/20/20 07:59 83 20 99 Nasal Cannula 2.0 28 82 20 97 04/20/20 04:00 97.6 67 24 120/63 (82) 100 04/20/20 04:00 69 04/20/20 01:23 84 18 100 Nasal Cannula 2.0 28 78 18 96 04/20/20 00:00 69 04/20/20 00:00 97.7 70 26 128/69 (88) 100 04/19/20 21:41 77 19 98 Nasal Cannula 2.0 28 73 18 94 04/19/20 21:10 85 137/85 04/19/20 21:00 Nasal Cannula 1.0 04/19/20 20:00 97.9 92 26 135/73 (93) 99 04/19/20 20:00 108 04/19/20 19:09 78 18 98 Nasal Cannula 2.0 28 72 18 94 04/19/20 16:00 Nasal Cannula 1.0 04/19/20 16:00 97.3 88 30 126/67 (86) 96 04/19/20 15:53 81 04/19/20 12:38 79 18 99 Nasal Cannula 2.0 28 77 18 97 04/19/20 12:00 97.3 79 23 143/83 (103) 93 04/19/20 12:00 82 04/19/20 12:00 Nasal Cannula 2.0 Height (Feet): 5 Height (Inches): 9.00 Weight (Pounds): 159 General Appearance: no acute distress HEENT: mucous membranes moist Respiratory/Chest: lungs clear, other - oxygen by nasal cannula Cardiovascular: normal rate Extremities: no edema Neurologic/Psychiatric: alert, responsive Microbiology Date/Time Source Procedure Growth Status 04/17/20 12:15 Rectum - Final NO CARBAPENEM-RESISTANT ENTEROBACTERI... Complete 04/17/20 12:15 Rectum VRE Culture - Final NO VANCOMYCIN RESISTANT ENTEROCOCCUS ... Complete Current Medications Medications (Trade) Dose Ordered Sig/Eulalia Route PRN Reason Start Time Stop Time Status Last Admin Dose Admin Acetaminophen (Tylenol) 500 mg Q4H PRN ORAL Mild Pain (Pain Scale 1-3) 04/19/20 18:21 05/17/20 18:20 Amiodarone HCl (Cordarone) 400 mg EVERY 12 HOURS ORAL 04/19/20 21:00 07/18/20 20:59 04/20/20 08:50 Aspirin (Ecotrin) 81 mg DAILY ORAL 04/20/20 09:00 06/03/20 08:59 04/20/20 08:50 Atorvastatin [place] (Lipitor) 20 mg BEDTIME ORAL 04/19/20 21:00 07/18/20 20:59 04/19/20 21:10 Budesonide (Pulmicort) 0.25 mg EVERY 12 HOURS [facility] 04/19/20 21:00 07/17/20 20:59 04/20/20 08:42 Ipratropium [place] (Atrovent) 500 mcg Q6HRT N 04/19/20 19:00 04/23/20 12:59 04/20/20 08:12 Methylprednisolone Sodium Succinate (Solu-MEDROL) 40 mg Q6H IVP 04/19/20 20:00 07/17/20 13:59 04/20/20 08:50 Metoprolol Tartrate (Lopressor) 50 mg Q12HR ORAL 04/19/20 21:00 07/18/20 20:59 04/20/20 08:50 Jonah Arnold MD Apr 20, 2020 09:51
[2020-04-20] MEDS ORDERED: ALBUTEROL SULF8.5 G1 INH (11:27)
[2020-04-20] MEDS ORDERED: ACETAMINOPHEN500 M3 ORAL (11:27)
[2020-04-20] MEDS ORDERED: METOPROLOL TART50 MG ORAL (11:32)
[2020-04-20] MEDS ORDERED: METOPROLOL TART25 MG ORAL (11:32)
[2020-04-20] MEDS ORDERED: THEO-DUR200 MG ORAL (11:43)
[2020-04-20] MEDS ORDERED: ADVAIR 250-501 EACH INH (11:46)
[2020-04-20] MEDS ORDERED: ARTIFICIAL TEAR15 ML BOTH EYES (11:52)
[2020-04-20] MEDS ORDERED: DIFLORASONE DIA TP (11:52)
[2020-04-20] MEDS ORDERED: FIBER THERAPY PO (11:52)
[2020-04-20 12:00] VITALS: BP 118/56
[2020-04-20 16:00] VITALS: BP 119/58
--- NOTE | 2020-04-20 17:42 | Cardiac Electrophysiology PN ---
Assessment/Plan Assessment/Plan 1. Asm-RD-jrchrnksz myocardial infarction with chest pain, inferolateral T-wave inversion, and elevated troponin. Likely precipitated by atrial fibrillation. Four follow up troponins are negative and echocardiogram showed EF 55%. Continue on aspirin and metoprolol 50 mg b.i.d. and decrease amiodarone to 200 mg daily 2. Newly diagnosed atrial fibrillation with rapid ventricular response. amiodarone to 200 mg daily and metoprolol. The patient already converted to sinus rhythm. If he continues to have recurrence of atrial fibrillation, the patient will need anticoagulation. 3. Hypertension. Maximize beta-gunnar. 4. Anemia. Hemoglobin of 8.7. DW RN Subjective Subjective In SR with BBB. No atrial fib. On 2 liter NC Objective Last 24 Hour Vital Signs Date Time Temp Pulse Resp B/P (MAP) Pulse Ox O2 Delivery O2 Flow Rate FiO2 04/20/20 16:00 98.4 71 22 119/58 (78) 97 04/20/20 12:50 78 20 97 Nasal Cannula 2.0 28 71 20 96 04/20/20 12:00 96.8 73 24 118/56 (76) 98 04/20/20 12:00 67 04/20/20 09:00 Nasal Cannula 1.0 04/20/20 08:50 86 111/60 04/20/20 08:41 86 20 99 Nasal Cannula 2.0 28 85 20 97 04/20/20 08:00 61 04/20/20 08:00 97.7 67 22 111/60 (77) 99 04/20/20 07:59 83 20 99 Nasal Cannula 2.0 28 82 20 97 04/20/20 04:00 97.6 67 24 120/63 (82) 100 04/20/20 04:00 69 04/20/20 01:23 84 18 100 Nasal Cannula 2.0 28 78 18 96 04/20/20 00:00 69 04/20/20 00:00 97.7 70 26 128/69 (88) 100 04/19/20 21:41 77 19 98 Nasal Cannula 2.0 28 73 18 94 04/19/20 21:10 85 137/85 04/19/20 21:00 Nasal Cannula 1.0 04/19/20 20:00 97.9 92 26 135/73 (93) 99 04/19/20 20:00 108 04/19/20 19:09 78 18 98 Nasal Cannula 2.0 28 72 18 94 Intake and Output 04/19/20 04/20/20 19:00 07:00 Intake Total 100 ml 360 ml Output Total 330 ml 900 ml Balance -230 ml -540 ml Intake Oral 100 ml 360 ml Output Urine Total 330 ml 900 ml # Voids 3 # Bowel Movements 2 1 Objective HEAD AND NECK: Shows positive JVD. LUNGS: Decreased breath sounds. CARDIOVASCULAR: Shows regular S1 and S2 with no gallop or murmur. ABDOMEN: Soft. EXTREMITIES: No pitting edema. Cade Saeed MD Apr 20, 2020 17:42
--- NOTE | 2020-04-20 18:39 | Pulmonology Progress Note ---
Subjective ROS Limited/Unobtainable: No Interval Events: Now in P[facility]; feeling better Constitutional: Reports: no symptoms HEENT: Repors: no symptoms Respiratory: Reports: no symptoms Cardiovascular: Reports: no symptoms Gastrointestinal/Abdominal: Reports: no symptoms Allergies: Coded Allergies: LISINOPRIL (Verified Allergy, Unknown, 04/17/20) Objective Last 24 Hour Vital Signs Date Time Temp Pulse Resp B/P (MAP) Pulse Ox O2 Delivery O2 Flow Rate FiO2 04/20/20 16:00 98.4 71 22 119/58 (78) 97 04/20/20 16:00 72 04/20/20 12:50 78 20 97 Nasal Cannula 2.0 28 71 20 96 04/20/20 12:00 96.8 73 24 118/56 (76) 98 04/20/20 12:00 67 04/20/20 09:00 Nasal Cannula 1.0 04/20/20 08:50 86 111/60 04/20/20 08:41 86 20 99 Nasal Cannula 2.0 28 85 20 97 04/20/20 08:00 61 04/20/20 08:00 97.7 67 22 111/60 (77) 99 04/20/20 07:59 83 20 99 Nasal Cannula 2.0 28 82 20 97 04/20/20 04:00 97.6 67 24 120/63 (82) 100 04/20/20 04:00 69 04/20/20 01:23 84 18 100 Nasal Cannula 2.0 28 78 18 96 04/20/20 00:00 69 04/20/20 00:00 97.7 70 26 128/69 (88) 100 04/19/20 21:41 77 19 98 Nasal Cannula 2.0 28 73 18 94 04/19/20 21:10 85 137/85 04/19/20 21:00 Nasal Cannula 1.0 04/19/20 20:00 97.9 92 26 135/73 (93) 99 04/19/20 20:00 108 04/19/20 19:09 78 18 98 Nasal Cannula 2.0 28 72 18 94 Intake and Output 04/19/20 04/20/20 19:00 07:00 Intake Total 100 ml 360 ml Output Total 330 ml 900 ml Balance -230 ml -540 ml Intake Oral 100 ml 360 ml Output Urine Total 330 ml 900 ml # Voids 3 # Bowel Movements 2 1 General Appearance: no acute distress HEENT: normocephalic Respiratory: chest wall non-tender, decreased breath sounds, accessory muscle use Cardiovascular: normal peripheral pulses Abdomen: normal bowel sounds Current Medications Medications (Trade) Dose Ordered Sig/Eulalia Route PRN Reason Start Time Stop Time Status Last Admin Dose Admin Acetaminophen (Tylenol) 500 mg Q4H PRN ORAL Mild Pain (Pain Scale 1-3) 04/19/20 18:21 05/17/20 18:20 Amiodarone HCl (Cordarone) 200 mg DAILY ORAL 04/21/20 09:00 07/18/20 20:59 Aspirin (Ecotrin) 81 mg DAILY ORAL 04/20/20 09:00 06/03/20 08:59 04/20/20 08:50 Atorvastatin Calcium (Lipitor) 20 mg BEDTIME ORAL 04/19/20 21:00 07/18/20 20:59 04/19/20 21:10 Budesonide (Pulmicort) 0.25 mg EVERY 12 HOURS [facility] 04/19/20 21:00 07/17/20 20:59 04/20/20 08:42 Ipratropium [place] (Atrovent) 500 mcg Q6HRT HHN 04/19/20 19:00 04/23/20 12:59 04/20/20 12:30 Methylprednisolone Sodium Succinate (Solu-MEDROL) 40 mg Q6H IVP 04/19/20 20:00 07/17/20 13:59 04/20/20 15:24 Metoprolol Tartrate (Lopressor) 50 mg Q12HR ORAL 04/19/20 21:00 07/18/20 20:59 04/20/20 08:50 Assessment/Plan Assessment/Plan IMPRESSION: 1. Chest pain. 2. Troponin leak. 3. Suspect non-STEMI. 4. COPD DISCUSSION: Noted Cardiology evaluation. Blood pressure control. DVT prophylaxis. Cardiac diet. I will follow carefully. On 2L/min nasal o2 Continue inhaled atrovent and budesonide Azar Garrett Omar Syed MD Apr 20, 2020 18:39
[2020-04-20 20:00] VITALS: BP 135/70
[2020-04-20] MEDS: Atorvastatin 20mg tab ORAL SCH (20:30)
--- NOTE | 2020-04-20 21:41 | General Progress Note ---
Assessment/Plan Problem List: (1) Chest pain ICD Codes: R07.9 - Chest pain, unspecified SNOMED: 25683614 (2) NSTEMI (non-ST elevated myocardial infarction) ICD Codes: I21.4 - Non-ST elevation (NSTEMI) myocardial infarction SNOMED: 82176879 Status: progressing Assessment/Plan: check h/h check trop no cp dc planning cp nstemi Subjective ROS Limited/Unobtainable: Yes Allergies: Coded Allergies: LISINOPRIL (Verified Allergy, Unknown, 04/17/20) Objective Last 24 Hour Vital Signs Date Time Temp Pulse Resp B/P (MAP) Pulse Ox O2 Delivery O2 Flow Rate FiO2 04/20/20 20:30 86 131/70 04/20/20 19:47 75 20 99 Nasal Cannula 2.0 28 71 20 97 04/20/20 19:46 75 20 99 Nasal Cannula 2.0 28 71 20 97 04/20/20 16:00 98.4 71 22 119/58 (78) 97 04/20/20 16:00 72 04/20/20 12:50 78 20 97 Nasal Cannula 2.0 28 71 20 96 04/20/20 12:00 96.8 73 24 118/56 (76) 98 04/20/20 12:00 67 04/20/20 09:00 Nasal Cannula 1.0 04/20/20 08:50 86 111/60 04/20/20 08:41 86 20 99 Nasal Cannula 2.0 28 85 20 97 04/20/20 08:00 61 04/20/20 08:00 97.7 67 22 111/60 (77) 99 04/20/20 07:59 83 20 99 Nasal Cannula 2.0 28 82 20 97 04/20/20 04:00 97.6 67 24 120/63 (82) 100 04/20/20 04:00 69 04/20/20 01:23 84 18 100 Nasal Cannula 2.0 28 78 18 96 04/20/20 00:00 69 04/20/20 00:00 97.7 70 26 128/69 (88) 100 04/19/20 21:41 77 19 98 Nasal Cannula 2.0 28 73 18 94 Intake and Output 04/19/20 04/20/20 19:00 07:00 Intake Total 100 ml 360 ml Output Total 330 ml 900 ml Balance -230 ml -540 ml Intake Oral 100 ml 360 ml Output Urine Total 330 ml 900 ml # Voids 3 # Bowel Movements 2 1 Height (Feet): 5 Height (Inches): 9.00 Weight (Pounds): 159 Baljinder Meraz MD Apr 20, 2020 21:41
[2020-04-21] VITALS (7 sets, daily range): BP systolic 116–153; BP diastolic 61–75
[2020-04-21] MEDS: Ipratropium 0.02% Inh Soln 2.5ml UD HHN SCH ×4 (00:16→18:52)
[2020-04-21] MEDS: Solu-MEDROL 40mg Inj IVP SCH ×4 (02:27→20:26)
[2020-04-21] MEDS: Aspirin EC 81mg tab ORAL SCH (08:29)
[2020-04-21] MEDS: Metoprolol Tartrate 50mg tab ORAL SCH ×2 (08:30→20:27)
[2020-04-21] MEDS ORDERED: Amiodarone 200mg tab ORAL SCH (09:00)
[2020-04-21] MEDS: Budesonide HHN 0.25mg/2ml ud HHN SCH ×2 (09:24→20:51)
--- NOTE | 2020-04-21 10:18 | Pulmonology Progress Note ---
Subjective ROS Limited/Unobtainable: Yes Interval Events: Now in P2; feeling better Constitutional: Reports: no symptoms HEENT: Repors: no symptoms Respiratory: Reports: no symptoms Cardiovascular: Reports: no symptoms Gastrointestinal/Abdominal: Reports: no symptoms Allergies: Coded Allergies: LISINOPRIL (Verified Allergy, Unknown, 04/17/20) Objective Last 24 Hour Vital Signs Date Time Temp Pulse Resp B/P (MAP) Pulse Ox O2 Delivery O2 Flow Rate FiO2 04/21/20 09:34 75 18 99 Nasal Cannula 2.0 28 78 18 97 04/21/20 09:00 Nasal Cannula 1.0 04/21/20 08:30 83 129/61 04/21/20 08:00 96.8 83 20 129/61 (83) 96 04/21/20 08:00 82 04/21/20 06:58 76 18 99 Nasal Cannula 2.0 28 73 18 96 04/21/20 04:00 97.9 70 20 125/66 (85) 98 04/21/20 04:00 67 04/21/20 00:16 80 20 99 Nasal Cannula 2.0 28 78 20 97 04/21/20 00:00 98.0 64 20 116/65 (82) 100 04/21/20 00:00 66 04/20/20 21:00 Nasal Cannula 1.0 04/20/20 20:30 86 131/70 04/20/20 20:00 98.0 80 20 135/70 (91) 97 04/20/20 20:00 74 04/20/20 19:47 75 20 99 Nasal Cannula 2.0 28 71 20 97 04/20/20 19:46 75 20 99 Nasal Cannula 2.0 28 71 20 97 04/20/20 16:00 98.4 71 22 119/58 (78) 97 04/20/20 16:00 72 04/20/20 12:50 78 20 97 Nasal Cannula 2.0 28 71 20 96 04/20/20 12:00 96.8 73 24 118/56 (76) 98 04/20/20 12:00 67 Intake and Output 04/20/20 04/21/20 19:00 07:00 Intake Total 320 ml 400 ml Output Total 700 ml Balance 320 ml -300 ml Intake Oral 320 ml 400 ml Output Urine Total 700 ml General Appearance: no acute distress HEENT: normocephalic Respiratory: chest wall non-tender, decreased breath sounds, accessory muscle use Cardiovascular: normal peripheral pulses Abdomen: normal bowel sounds Current Medications Medications (Trade) Dose Ordered Sig/Eulalia Route PRN Reason Start Time Stop Time Status Last Admin Dose Admin Acetaminophen (Tylenol) 500 mg Q4H PRN ORAL Mild Pain (Pain Scale 1-3) 04/19/20 18:21 05/17/20 18:20 Amiodarone HCl (Cordarone) 200 mg DAILY ORAL 04/21/20 09:00 07/18/20 20:59 04/21/20 08:29 Aspirin (Ecotrin) 81 mg DAILY ORAL 04/20/20 09:00 06/03/20 08:59 04/21/20 08:29 Atorvastatin Calcium (Lipitor) 20 mg BEDTIME ORAL 04/19/20 21:00 07/18/20 20:59 04/20/20 20:30 Budesonide (Pulmicort) 0.25 mg EVERY 12 HOURS [facility] 04/19/20 21:00 07/17/20 20:59 04/21/20 09:24 Ipratropium [place] (Atrovent) 500 mcg Q6HRT N 04/19/20 19:00 04/23/20 12:59 04/21/20 06:48 Methylprednisolone Sodium Succinate (Solu-MEDROL) 40 mg Q6H IVP 04/19/20 20:00 07/17/20 13:59 04/21/20 08:29 Metoprolol Tartrate (Lopressor) 50 mg Q12HR ORAL 04/19/20 21:00 07/18/20 20:59 04/21/20 08:30 Assessment/Plan Assessment/Plan IMPRESSION: 1. Chest pain. 2. Troponin leak. 3. Suspect non-STEMI. 4. COPD DISCUSSION: Noted Cardiology evaluation. Blood pressure control. DVT prophylaxis. Cardiac diet. I will follow carefully. On 2L/min nasal o2 Continue inhaled atrovent and budesonide Azar Garrett Omar Syed MD Apr 21, 2020 10:18
--- NOTE | 2020-04-21 11:50 | Infectious Diseases Prog Note ---
Assessment/Plan Assessment/Plan IMPRESSION: COPD. Chest pain and elevated troponin. Atrial fibrillation & RVR Anemia, Hypertension NSTEMI RECOMMENDATION: Observe off antibiotic. Subjective ROS Limited/Unobtainable: No Constitutional: Reports: no symptoms Respiratory: Reports: shortness of breath, productive cough, other - slightly Cardiovascular: Reports: no symptoms Gastrointestinal/Abdominal: Reports: no symptoms Genitourinary: Reports: no symptoms Allergies: Coded Allergies: LISINOPRIL (Verified Allergy, Unknown, 04/17/20) Objective Last 24 Hour Vital Signs Date Time Temp Pulse Resp B/P (MAP) Pulse Ox O2 Delivery O2 Flow Rate FiO2 04/21/20 09:34 75 18 99 Nasal Cannula 2.0 28 78 18 97 04/21/20 09:00 Nasal Cannula 1.0 04/21/20 08:30 83 129/61 04/21/20 08:00 96.8 83 20 129/61 (83) 96 04/21/20 08:00 82 04/21/20 06:58 76 18 99 Nasal Cannula 2.0 28 73 18 96 04/21/20 04:00 97.9 70 20 125/66 (85) 98 04/21/20 04:00 67 04/21/20 00:16 80 20 99 Nasal Cannula 2.0 28 78 20 97 04/21/20 00:00 98.0 64 20 116/65 (82) 100 04/21/20 00:00 66 04/20/20 21:00 Nasal Cannula 1.0 04/20/20 20:30 86 131/70 04/20/20 20:00 98.0 80 20 135/70 (91) 97 04/20/20 20:00 74 04/20/20 19:47 75 20 99 Nasal Cannula 2.0 28 71 20 97 04/20/20 19:46 75 20 99 Nasal Cannula 2.0 28 71 20 97 04/20/20 16:00 98.4 71 22 119/58 (78) 97 04/20/20 16:00 72 04/20/20 12:50 78 20 97 Nasal Cannula 2.0 28 71 20 96 04/20/20 12:00 96.8 73 24 118/56 (76) 98 04/20/20 12:00 67 Height (Feet): 5 Height (Inches): 9.00 Weight (Pounds): 159 General Appearance: no acute distress HEENT: mucous membranes moist Respiratory/Chest: lungs clear, other - oxygen by nasal cannula Cardiovascular: normal rate Abdomen: soft, non tender Extremities: no edema Neurologic/Psychiatric: alert, responsive Musculoskeletal: atrophy Current Medications Medications (Trade) Dose Ordered Sig/Eulalia Route PRN Reason Start Time Stop Time Status Last Admin Dose Admin Acetaminophen (Tylenol) 500 mg Q4H PRN ORAL Mild Pain (Pain Scale 1-3) 04/19/20 18:21 05/17/20 18:20 Amiodarone HCl (Cordarone) 200 mg DAILY ORAL 04/21/20 09:00 07/18/20 20:59 04/21/20 08:29 Aspirin (Ecotrin) 81 mg DAILY ORAL 04/20/20 09:00 06/03/20 08:59 04/21/20 08:29 Atorvastatin Calcium (Lipitor) 20 mg BEDTIME ORAL 04/19/20 21:00 07/18/20 20:59 04/20/20 20:30 Budesonide (Pulmicort) 0.25 mg EVERY 12 HOURS [facility] 04/19/20 21:00 07/17/20 20:59 04/21/20 09:24 Ipratropium [place] (Atrovent) 500 mcg Q6HRT N 04/19/20 19:00 04/23/20 12:59 04/21/20 06:48 Methylprednisolone Sodium Succinate (Solu-MEDROL) 40 mg Q6H IVP 04/19/20 20:00 07/17/20 13:59 04/21/20 08:29 Metoprolol Tartrate (Lopressor) 50 mg Q12HR ORAL 04/19/20 21:00 07/18/20 20:59 04/21/20 08:30 Jonah Arnold MD Apr 21, 2020 11:50
[2020-04-21] MEDS ORDERED: PREDNISONE20 MG ORAL (16:42)
--- NOTE | 2020-04-21 16:52 | Cardiac Electrophysiology PN ---
Assessment/Plan Assessment/Plan 1. [id number] myocardial infarction with chest pain, inferolateral T-wave inversion, and elevated troponin. Likely precipitated by atrial fibrillation. Four follow up troponins are negative and echocardiogram showed EF 55%. Continue on aspirin and metoprolol 50 mg b.i.d. and amiodarone 200 mg daily 2. Newly diagnosed atrial fibrillation with rapid ventricular response. Continue amiodarone to 200 mg daily and metoprolol. The patient already converted to sinus rhythm. If he develops recurrence of atrial fibrillation, the patient will need anticoagulation. 3. Hypertension. Maximize beta-gunnar. 4. Anemia. Hemoglobin of 8.7. DW RN OK to DC Subjective Subjective In SR with BBB. No atrial fib. DC in progress Objective Last 24 Hour Vital Signs Date Time Temp Pulse Resp B/P (MAP) Pulse Ox O2 Delivery O2 Flow Rate FiO2 04/21/20 13:03 76 18 99 Nasal Cannula 2.0 28 76 18 97 04/21/20 12:00 96.9 61 22 136/63 (87) 97 04/21/20 12:00 61 04/21/20 09:34 75 18 99 Nasal Cannula 2.0 28 78 18 97 04/21/20 09:00 Nasal Cannula 1.0 04/21/20 08:30 83 129/61 04/21/20 08:00 96.8 83 20 129/61 (83) 96 04/21/20 08:00 82 04/21/20 06:58 76 18 99 Nasal Cannula 2.0 28 73 18 96 04/21/20 04:00 97.9 70 20 125/66 (85) 98 04/21/20 04:00 67 04/21/20 00:16 80 20 99 Nasal Cannula 2.0 28 78 20 97 04/21/20 00:00 98.0 64 20 116/65 (82) 100 04/21/20 00:00 66 04/20/20 21:00 Nasal Cannula 1.0 04/20/20 20:30 86 131/70 04/20/20 20:00 98.0 80 20 135/70 (91) 97 04/20/20 20:00 74 04/20/20 19:47 75 20 99 Nasal Cannula 2.0 28 71 20 97 04/20/20 19:46 75 20 99 Nasal Cannula 2.0 28 71 20 97 Intake and Output 04/20/20 04/21/20 19:00 07:00 Intake Total 320 ml 400 ml Output Total 700 ml Balance 320 ml -300 ml Intake Oral 320 ml 400 ml Output Urine Total 700 ml Objective HEAD AND NECK: Shows positive JVD. LUNGS: Decreased breath sounds. CARDIOVASCULAR: Shows regular S1 and S2 with no gallop or murmur. ABDOMEN: Soft. EXTREMITIES: No pitting edema. Cade Saeed MD Apr 21, 2020 16:52
[2020-04-21] MEDS: Atorvastatin 20mg tab ORAL SCH (20:26)
--- NOTE | 2020-04-21 20:52 | General Progress Note ---
Assessment/Plan Problem List: (1) Chest pain ICD Codes: R07.9 - Chest pain, unspecified SNOMED: 32278444 (2) NSTEMI (non-ST elevated myocardial infarction) ICD Codes: I21.4 - Non-ST elevation (NSTEMI) myocardial infarction SNOMED: 13099999 Status: progressing Assessment/Plan: dc back to snf nstemi no cp see dc summary Subjective ROS Limited/Unobtainable: Yes Allergies: Coded Allergies: LISINOPRIL (Verified Allergy, Unknown, 04/17/20) Objective Last 24 Hour Vital Signs Date Time Temp Pulse Resp B/P (MAP) Pulse Ox O2 Delivery O2 Flow Rate FiO2 04/21/20 20:27 78 153/75 04/21/20 18:56 85 18 97 Nasal Cannula 2.0 28 81 18 93 04/21/20 16:00 97.0 66 24 143/66 (91) 96 04/21/20 16:00 71 04/21/20 13:03 76 18 99 Nasal Cannula 2.0 28 76 18 97 04/21/20 12:00 96.9 61 22 136/63 (87) 97 04/21/20 12:00 61 04/21/20 09:34 75 18 99 Nasal Cannula 2.0 28 78 18 97 04/21/20 09:00 Nasal Cannula 1.0 04/21/20 08:30 83 129/61 04/21/20 08:00 96.8 83 20 129/61 (83) 96 04/21/20 08:00 82 04/21/20 06:58 76 18 99 Nasal Cannula 2.0 28 73 18 96 04/21/20 04:00 97.9 70 20 125/66 (85) 98 04/21/20 04:00 67 04/21/20 00:16 80 20 99 Nasal Cannula 2.0 28 78 20 97 04/21/20 00:00 98.0 64 20 116/65 (82) 100 04/21/20 00:00 66 04/20/20 21:00 Nasal Cannula 1.0 Intake and Output 04/20/20 04/21/20 19:00 07:00 Intake Total 320 ml 400 ml Output Total 700 ml Balance 320 ml -300 ml Intake Oral 320 ml 400 ml Output Urine Total 700 ml Height (Feet): 5 Height (Inches): 9.00 Weight (Pounds): 159 Hadadz,Ali MD Apr 21, 2020 20:52
--- NOTE | 2020-04-22 10:16 | Discharge Summary ---
Discharge Summary Discharge Summary _ DATE OF ADMISSION: 04/17/2020 DATE OF DISCHARGE: 04/21/2020 DISCHARGED BY: Dr. Meraz REASON FOR ADMISSION: 84 years old male with past medical history hypertension, COPD, was sent for evaluation due to chest pain Chest pain reported as substernal, without radiation and pressure-like quality. Chest pain felt worse on exertion. Patient denied fevers and chills. Patient denied shortness of breath. No palpitations. No back pain. No abdominal pain, nausea, vomiting, diarrhea, dysuria, or leg swelling. Upon evaluation vital signs were stable. Patient required 2 L of nasal cannula, saturating 96%. Rapid COVID-19 was negative. Chest x-ray revealed stable patchy airspace opacity within the right mid to lower and left lower lung field, improved from the prior CXR. Stable bilateral pleural effusion; mild vascular congestion; no pneumothorax. Cardiomegaly. \ Laboratory work-up revealed no leukocytosis ,hemoglobin 8.7 ,hematocrit 28.4. Troponin 0.065 , stable electrolytes . Initial EKG revealed sinus tachycardia with premature atrial Complexes. Right bundle branch block. BUN 23, creatinine 1.2. Glucose 128. In emergency department patient received aspirin , beta-gunnar and admitted for further management. CONSULTANTS: biochemist Dr. Mckeon pulmonary Dr. Carline GALVEZ specialist Dr. Jonah Arnold [facility] COURSE: Patient admitted to telemetry floor. Draw Bench Operator followed. Repeated EKG showed atrial fibrillation with rapid ventricular response. Inferolateral T wave inversion . Echocardiogram demonstrated preserved ejection fraction 55 to 60% with mild left ventricular hypertrophy. No evidence of wall motion abnormality. Moderate to severe right ventricular enlargement. Right ventricular systolic pressure of 64 consistent with severe pulmonary hypertension. Per biochemist patient had NSTEMI, likely precipitated by atrial fibrillation. Serial follow-up troponin x4 were negative. Patient was on antiplatelet therapy with aspirin and beta-blockade. Patient started on amiodarone due to newly diagnosed atrial fibrillation with rapid ventricular response. Patient converted to sinus rhythm. Rate was controlled with amiodarone and metoprolol. Per biochemist , if atrial fibrillation recurs , then patient will need anticoagulation. Blood pressure was managed with beta-gunnar; dose was uptitrated to keep blood pressure under control. \ Statin continued. TSH within normal range. Supplemental oxygen provided and titrated to keep pulse oximetry above 92%. Patient was continued on budesonide. Nebulizing treatment with Atrovent continued. IV steroids provided. DVT prophylaxis provided. ID specialist recommended to observe patient off antibiotics. Patient had no fever , no leukocytosis ,no evidence of infection. Supportive care provided. Patient clinically stabilized and was ready [facility] for [facility] of care. FINAL DIAGNOSES: NSTEMI ( with chest pain, inferolateral T wave inversion and elevated troponin) , likely precipitated by atrial fibrillation Newly diagnosed atrial fibrillation with rapid ventricular response Hypertension COPD Anemia DISCHARGE MEDICATIONS: See Medication Reconciliation list. DISCHARGE INSTRUCTIONS: Patient was discharged to the [facility] facility. Follow up with medical doctor at the facility. I have been assigned to dictate discharge summary for this account. I was not involved in the patient's management. Neyda Ramires NP Apr 22, 2020 10:16
== END 2020-04-21 21:45 | DRG 280 ==
LOC: EDBD 09:06 → EMR 09:45 → 2E 09:50 → EDBEDREQ 10:33 → EDBEDREQTM 12:17 → EDBEDREQ 12:17 → ICU 04-18 10:05 → 2W 04-18 15:41 → 2E 04-19 18:19
DX: I21.4 Non-ST elevation (NSTEMI) myocardial infarction (principal); J18.9 Pneumonia, unspecified organism; I48.91 Unspecified atrial fibrillation; J44.9 Chronic obstructive pulmonary disease, unspecified; I27.20 Pulmonary hypertension, unspecified; D64.9 Anemia, unspecified; Z88.8 Allergy status to other drugs, medicaments and biological substances; I45.10 Unspecified right bundle-branch block
CPT/HCPCS: 36415; 71045; 80053; 83880; 84439; 84443; 84484; 85025; 87081; 93005; 93306; 94640; 94664; 96374; 99285; U0002

== ENCOUNTER 2020-05-06 10:17 | Inpatient (IN) | payer MEDICARE, OTHER ==
[~2020-05-06] VITALS: Ht 165.1 cm; Wt 67.5 kg
[~2020-05-06 10:17] MED LIST: ACETAMINOPHEN500 M3 ORAL; ADVAIR 250-501 EACH INH; ALBUTEROL SULF8.5 G1 INH; ARTIFICIAL TEAR15 ML BOTH EYES; DIFLORASONE DIA TP; DOCUSATE SODIU100 MG ORAL; FIBER THERAPY PO; FLUTICASONE PRO16 G1 NASAL; INCRUSE ELLI62.5 MCG IH; LATANOPROST2.5 ML BOTH EYES; METOPROLOL SUCC50 MG ORAL; METOPROLOL TART25 MG ORAL; METOPROLOL TART50 MG ORAL; MILK OF MA400 MG/51 ORAL; MIRALAX17 G2 ORAL; NITRO0.4 SL; PREDNISONE20 MG ORAL; PRESERVISION A1 EAC2 PO; PROSCAR5 MG ORAL; REFRESH PLUS1 EACH OP; SIMVASTATIN10 MG ORAL; THEO-DUR200 MG ORAL; THEOPHYLLI80 MG/151 PO; TRAMADOL HCL50 MG ORAL; TRUSOPT10 ML BOTH EYES; VITAMIN C500 M1 ORAL
--- NOTE | 2020-05-06 10:17 | NUR ---
ED Nurse Note: Pt arrived with RA Claudio due SVT from snf, pt reports a bounding pain pt HR on electronic device monitor at 156. Pt is aox4 on 3 L nasal cannula. IV site established by RA Claudio on left AC 20 g.
--- NOTE | 2020-05-06 10:21 | Emergency Room Report ---
History of Present Illness General Chief Complaint: Palpitations Source: Patient, EMS Present Illness HPI 84-year-old male history of hypertension COPD atrial fibrillation presents with palpitations that started this morning no known aggravating relieving factors severity is moderate, constant patient denies any chest pain or shortness of breath no nausea no vomiting no fevers no chills no abdominal pain patient presents for evaluation and treatment Allergies: Coded Allergies: LISINOPRIL (Verified Allergy, Unknown, 04/17/20) COVID-19 Screening Contact w/high risk pt: No Experienced COVID-19 symptoms?: No COVID-19 Testing performed MANAGER BAKERY: No Patient History Past Medical History: see triage record Reviewed Nursing Documentation: PMH: Agreed; PSxH: Agreed Nursing Documentation-PMH Hx Cardiac Problems: Yes Hx Hypertension: Yes Hx COPD: Yes Hx Gastrointestinal Problems: Yes Hx Neurological Problems: No Review of Systems All Other Systems: negative except mentioned in HPI Physical Exam Vital Signs Date Time Temp Pulse Resp B/P (MAP) Pulse Ox O2 Delivery O2 Flow Rate FiO2 05/06/20 10:09 98.1 150 16 110/72 (85) 98 Nasal Cannula 2.0 Sp02 EP Interpretation: reviewed, normal General Appearance: well appearing, no apparent distress, alert Head: normocephalic, atraumatic Eyes: bilateral eye PERRL, bilateral eye EOMI ENT: uvula midline, moist mucus membranes Neck: supple, thyroid normal, supple/symm/no masses Respiratory: lungs clear, no respiratory distress, no retraction, no accessory muscle use Cardiovascular #1: normal peripheral pulses, no edema, no gallop, no murmur, tachycardia, irregularly irregular Gastrointestinal: non tender, soft, no guarding, no rebound Musculoskeletal: normal inspection Neurologic: alert, oriented x3 Psychiatric: mood/affect normal Skin: no rash, warm/dry Procedures Critical Care Time Critical Care Time Given the critical condition in which the patient arrived, the patient was immediately assessed by myself and the nurse, and cardiac monitoring initiated due to the potential for rapid decompensation of the patient's clinical condition. During the course of the patient's stay, I spent a considerable amount of time at the bedside performing serial re-evaluations of the patient's hemodynamic and clinical status because of the recognized potential threat to life or limb in this condition. I then had a chance to review not only all of the available current laboratory and radiographic studies obtained today, but I also reviewed old records available to me at the time. Additionally, any anci ary information available including casino runner records were reviewed. Sequential vital signs were obtained. Critical Care time of 31 minutes was performed exclusive of billable procedures. Medical Decision Making Diagnostic Impression: Primary Impression: Atrial fibrillation with RVR Additional Impression: UTI (urinary tract infection) Qualified Codes: N39.0 - Urinary tract infection, site not specified ER Course 84-year-old male presents with palpitations, heart rate in the 150s, patient given metoprolol 5 mg IV x3 with improvement in A. fib with RVR Patient given ceftriaxone for UTI Patient's A. fib with RVR resolved Admission to telemetry under Dr. Meraz Laboratory Tests Test 05/06/20 10:00 05/06/20 11:30 White Blood Count 8.4 K/UL (4.8-10.8) Red Blood Count 3.74 M/UL (4.70-6.10) L Hemoglobin 9.1 G/DL (14.2-18.0) L Hematocrit 30.1 % (42.0-52.0) L Mean Corpuscular Volume 81 FL (80-99) Mean Corpuscular Hemoglobin 24.4 PG (27.0-31.0) L Mean Corpuscular Hemoglobin Concent 30.3 G/DL (32.0-36.0) L Red Cell Distribution Width 15.9 % (11.6-14.8) H Platelet Count 193 K/UL (150-450) Mean Platelet Volume 5.8 FL (6.5-10.1) L Neutrophils (%) (Auto) 70.9 % (45.0-75.0) Lymphocytes (%) (Auto) 13.5 % (20.0-45.0) L Monocytes (%) (Auto) 11.8 % (1.0-10.0) H Eosinophils (%) (Auto) 0.5 % (0.0-3.0) Basophils (%) (Auto) 3.2 % (0.0-2.0) H Prothrombin Time 11.3 SEC (9.30-11.50) Prothrombin Time INR 1.0 (0.9-1.1) Activated Partial Thromboplast Time 25 SEC (23-33) Sodium Level 143 MMOL/L (136-145) Potassium Level 4.2 MMOL/L (3.5-5.1) Chloride Level 106 MMOL/L (98-107) Carbon Dioxide Level 34 MMOL/L (21-32) H Anion Gap 3 mmol/L (5-15) L Blood Urea Nitrogen 30 mg/dL (7-18) H Creatinine 1.3 MG/DL (0.55-1.30) Estimated Glomerular Filtration Rate > 60 mL/min (>60) Glucose Level 123 MG/DL (74-106) H Calcium Level 8.7 MG/DL (8.5-10.1) Phosphorus Level 3.2 MG/DL (2.5-4.9) Magnesium Level 1.9 MG/DL (1.8-2.4) Total Bilirubin 0.2 MG/DL (0.2-1.0) Aspartate Amino Transferase (AST) 15 U/L (15-37) Alanine Aminotransferase (ALT) 26 U/L (12-78) Alkaline Phosphatase 60 U/L (46-116) Troponin I 0.041 ng/mL (0.000-0.056) Pro-B-Type Natriuretic Peptide 35899 pg/mL (0-125) H Total Protein 6.0 G/DL (6.4-8.2) L Albumin 2.8 G/DL (3.4-5.0) L Globulin 3.2 g/dL Albumin/Globulin Ratio 0.9 (1.0-2.7) L Lipase 165 U/L (73-393) Thyroid Stimulating Hormone (TSH) 10.191 uiU/mL (0.358-3.740) Free Thyroxine 0.80 NG/DL (0.76-1.46) Free Triiodothyronine 1.7 pg/mL (2.3-4.2) L Urine Color Yellow Urine Appearance Clear Urine pH 5 (4.5-8.0) Urine Specific [place] 1.015 (1.005-1.035) Urine Protein 2+ (NEGATIVE) H Urine Glucose (UA) Negative (NEGATIVE) Urine Ketones Negative (NEGATIVE) Urine Blood 4+ (NEGATIVE) H Urine Nitrite Negative (NEGATIVE) Urine Bilirubin Negative (NEGATIVE) Urine Urobilinogen Normal MG/DL (0.0-1.0) Urine Leukocyte Esterase Negative (NEGATIVE) Urine RBC Tntc /HPF (0 - 0) H Urine WBC 5-10 /HPF (0 - 0) H Urine Squamous Epithelial Cells Few /LPF (NONE/OCC) Urine Bacteria Moderate /HPF (NONE) H Microbiology Date/Time Source Procedure Growth Status 05/06/20 10:20 Nasopharynx SARS-CoV-2 RdRp Gene Assay - Final Complete EKG Diagnostic Results EKG Time: 10:21 EP Interpretation: A. fib/aflutter with RVR, rate 156, QTc 509, no acute ST elevations Rhythm Strip Diag. Results Rhythm Strip Time: 10:51 EP Interpretation: yes Rate: 101 Rhythm: other - A flutter/A. fib Chest X-Ray Diagnostic Results Chest X-Ray Diagnostic Results : Chest X-Ray Ordered: Yes # of Views/Limited/Complete: 1 View Indication: Chest Pain EP Interpretation: Yes Interpretation: no consolidation, no effusion, no pneumothorax, no acute cardiopulmonary disease Impression: No acute disease Electronically Signed by: Roby Patterson MD Last Vital Signs Date Time Temp Pulse Resp B/P (MAP) Pulse Ox O2 Delivery O2 Flow Rate FiO2 05/06/20 10:09 98.1 150 16 110/72 (85) 98 Nasal Cannula 2.0 Disposition: ADMITTED INPATIENT Condition: Critical Roby Patterson MD May 06, 2020 10:21
[2020-05-06] MEDS: Metoprolol Tartrate 5mg/5ml Inj IVP SCH ×3 (10:26→10:41)
[2020-05-06 10:34] VITALS: BP 106/68
--- NOTE | 2020-05-06 10:36 | NUR ---
ED Nurse Note: after 2nd dose of metoprolol, bp is 96/63-ermd made aware
--- NOTE | 2020-05-06 10:37 | NUR ---
ED Nurse Note: xray completed.
--- NOTE | 2020-05-06 10:41 | NUR ---
ED Nurse Note: [place] 3[place] [address] [place] 115. PER ermd admin 3rd dose.
[2020-05-06 10:42] VITALS: BP 101/60
[2020-05-06 10:44] LABS: BASOPHILS % (AUTO) 3.2 % (0.0-2.0); EOSINOPHILS % (AUTO) 0.5 % (0.0-3.0); HEMATOCRIT 30.1 % (42.0-52.0); HEMOGLOBIN 9.1 G/DL (14.2-18.0); LYMPHOCYTES % (AUTO) 13.5 % (20.0-45.0); MEAN CORPUSCULAR VOLUME 81 FL (80-99); MONOCYTES % (AUTO) 11.8 % (1.0-10.0); NEUTROPHILS % (AUTO) 70.9 % (45.0-75.0); PLATELET COUNT 193 K/UL (150-450); RED BLOOD COUNT 3.74 M/UL (4.70-6.10); RED CELL DISTRIBUTION WIDTH 15.9 % (11.6-14.8); WHITE BLOOD COUNT 8.4 K/UL (4.8-10.8)
[2020-05-06 11:08] LABS: ANION GAP 3 mmol/L (5-15); BLOOD UREA NITROGEN 30 mg/dL (7-18); CALCIUM 8.7 MG/DL (8.5-10.1); CARBON DIOXIDE 34 MMOL/L (21-32); CHLORIDE 106 MMOL/L (98-107); CREATININE 1.3 MG/DL (0.55-1.30); POTASSIUM 4.2 MMOL/L (3.5-5.1); SODIUM 143 MMOL/L (136-145)
[2020-05-06 11:17] LABS: ALANINE AMINOTRANSFERASE 26 U/L (12-78); ALBUMIN 2.8 G/DL (3.4-5.0); ALBUMIN/GLOBULIN RATIO 0.9 (1.0-2.7); ALKALINE PHOSPHATASE 60 U/L (46-116); ASPARTATE AMINO TRANSFERASE 15 U/L (15-37); BILIRUBIN,TOTAL 0.2 MG/DL (0.2-1.0); PHOSPHORUS 3.2 MG/DL (2.5-4.9)
[2020-05-06 11:47] LABS: APPEARANCE,URINE CLEAR; BILIRUBIN, URINE NEGATIVE (NEGATIVE); GLUCOSE, URINE (UA) NEGATIVE (NEGATIVE); KETONES,URINE NEGATIVE (NEGATIVE); LEUKOCYTE ESTERASE ,URINE NEGATIVE (NEGATIVE); NITRITE,URINE NEGATIVE (NEGATIVE); PH,URINE 5 (4.5-8.0); PROTEIN,URINE 2+ (NEGATIVE); UROBILINOGEN,URINE NORMAL MG/DL (0.0-1.0)
[2020-05-06 11:50] LABS: COLOR,URINE YELLOW
[2020-05-06] MEDS ORDERED: cefTRIAXone 1 GM in NS 55 ML IVPB ONE (12:15)
--- NOTE | 2020-05-06 13:03 | NUR ---
ED Nurse Note: Report given to Karena MON.
--- NOTE | 2020-05-06 13:10 | NUR ---
TRANSFER TO FLOOR: Patient transferred to [facility] as ordered, per ERMD. Report given to salo Henderson. Belongings given to pt.
--- NOTE | 2020-05-06 13:30 | NUR ---
NURSES NOTE: Pt is A/O x 3. Transferred via gurney from ED. PT has no SOB or acute distress. Pt is on NC 3L SATing @ 96%. No pain noted. Bedside commode placed next to bed to easy transfer. Also urinal placed at bedside. Pt is continent of both bowel and bladder. Contacted Dr. Meraz for admitting orders. Awaiting callback. Bed in lowest position and locked for safety. Will continue to monitor.
--- NOTE | 2020-05-06 14:10 | NUR ---
NURSES NOTES: Received admitting orders from Dr. Meraz which were carried out.
--- NOTE | 2020-05-06 15:56 | Diagnostic Imaging Report ---
Indication: Cough Technique: One view of the chest Comparison: 04/18/2020 Findings: Bilateral small pleural effusions. The heart size is normal. Right mid and lower lung parenchymal opacities appear similar to the prior exam. The heart size is normal. There is bilateral costophrenic angle blunting Stable right mid and lower lung opacities, since prior exam 04/18/2020. Possibly at least in part on a chronic basis, versus representing recurrent or persistent infiltrates. Stable bilateral costophrenic angle blunting, scarring versus pleural fluid Impression:
[2020-05-06 16:00] VITALS: BP 126/75
[2020-05-06] MEDS ORDERED: Acetaminophen 500mg (ES) tab ORAL PRN (16:00)
[2020-05-06] MEDS ORDERED: Miralax 17gm pkt ORAL PRN (16:00)
[2020-05-06] MEDS ORDERED: Nitroglycerin Subl 0.4mg tab SL PRN (16:00)
[2020-05-06] MEDS ORDERED: traMADol 50mg tab ORAL PRN (16:00)
[2020-05-06] MEDS ORDERED: Milk of Magnesia 30ml Ud ORAL PRN (16:00)
--- NOTE | 2020-05-06 17:00 | Cardiac Electrophysiology PN ---
Subjective Subjective [id number] Objective Last 24 Hour Vital Signs Date Time Temp Pulse Resp B/P (MAP) Pulse Ox O2 Delivery O2 Flow Rate FiO2 05/06/20 16:00 96.6 82 18 126/75 (92) 96 05/06/20 14:15 Nasal Cannula 3.0 05/06/20 13:10 98.3 106 20 96/81 96 Room Air 05/06/20 10:42 98.1 101 24 101/60 100 Nasal Cannula 3.0 05/06/20 10:41 115 115/68 05/06/20 10:35 103 96/63 05/06/20 10:34 98.1 156 19 106/68 100 Nasal Cannula 3.0 05/06/20 10:26 156 106/68 05/06/20 10:09 98.1 150 16 110/72 (85) 98 Nasal Cannula 2.0 Laboratory Tests Test 05/06/20 10:00 05/06/20 11:30 White Blood Count 8.4 K/UL (4.8-10.8) Red Blood Count 3.74 M/UL (4.70-6.10) L Hemoglobin 9.1 G/DL (14.2-18.0) L Hematocrit 30.1 % (42.0-52.0) L Mean Corpuscular Volume 81 FL (80-99) Mean Corpuscular Hemoglobin 24.4 PG (27.0-31.0) L Mean Corpuscular Hemoglobin Concent 30.3 G/DL (32.0-36.0) L Red Cell Distribution Width 15.9 % (11.6-14.8) H Platelet Count 193 K/UL (150-450) Mean Platelet Volume 5.8 FL (6.5-10.1) L Neutrophils (%) (Auto) 70.9 % (45.0-75.0) Lymphocytes (%) (Auto) 13.5 % (20.0-45.0) L Monocytes (%) (Auto) 11.8 % (1.0-10.0) H Eosinophils (%) (Auto) 0.5 % (0.0-3.0) Basophils (%) (Auto) 3.2 % (0.0-2.0) H Prothrombin Time 11.3 SEC (9.30-11.50) Prothromb Time International Ratio 1.0 (0.9-1.1) Activated Partial Thromboplast Time 25 SEC (23-33) Sodium Level 143 MMOL/L (136-145) Potassium Level 4.2 MMOL/L (3.5-5.1) Chloride Level 106 MMOL/L (98-107) Carbon Dioxide Level 34 MMOL/L (21-32) H Anion Gap 3 mmol/L (5-15) L Blood Urea Nitrogen 30 mg/dL (7-18) H Creatinine 1.3 MG/DL (0.55-1.30) Estimat Glomerular Filtration Rate > 60 mL/min (>60) Glucose Level 123 MG/DL (74-106) H Calcium Level 8.7 MG/DL (8.5-10.1) Phosphorus Level 3.2 MG/DL (2.5-4.9) Magnesium Level 1.9 MG/DL (1.8-2.4) Total Bilirubin 0.2 MG/DL (0.2-1.0) Aspartate Amino Transf (AST/SGOT) 15 U/L (15-37) Alanine Aminotransferase (ALT/SGPT) 26 U/L (12-78) Alkaline Phosphatase 60 U/L (46-116) Troponin I 0.041 ng/mL (0.000-0.056) Pro-B-Type Natriuretic Peptide 56430 pg/mL (0-125) H Total Protein 6.0 G/DL (6.4-8.2) L Albumin 2.8 G/DL (3.4-5.0) L Globulin 3.2 g/dL Albumin/Globulin Ratio 0.9 (1.0-2.7) L Lipase 165 U/L (73-393) Thyroid Stimulating Hormone (TSH) 10.191 uiU/mL (0.358-3.740) Free Thyroxine 0.80 NG/DL (0.76-1.46) Free Triiodothyronine 1.7 pg/mL (2.3-4.2) L Urine Color Yellow Urine Appearance Clear Urine pH 5 (4.5-8.0) Urine Specific [place] 1.015 (1.005-1.035) Urine Protein 2+ (NEGATIVE) H Urine Glucose (UA) Negative (NEGATIVE) Urine Ketones Negative (NEGATIVE) Urine Blood 4+ (NEGATIVE) H Urine Nitrite Negative (NEGATIVE) Urine Bilirubin Negative (NEGATIVE) Urine Urobilinogen Normal MG/DL (0.0-1.0) Urine Leukocyte Esterase Negative (NEGATIVE) Urine RBC Tntc /HPF (0 - 0) H Urine WBC 5-10 /HPF (0 - 0) H Urine Squamous Epithelial Cells Few /LPF (NONE/OCC) Urine Bacteria Moderate /HPF (NONE) H Microbiology Date/Time Source Procedure Growth Status 05/06/20 10:20 Nasopharynx SARS-CoV-2 RdRp Gene Assay - Final Complete 05/06/20 10:00 Rectum Received Cade Saeed MD May 06, 2020 17:00
--- NOTE | 2020-05-06 18:15 | Consultation ---
DATE OF CONSULTATION: 05/06/2020 CARDIOLOGY CONSULTATION REFERRING PHYSICIAN: Baljinder Meraz M.D. REASON FOR CONSULTATION: Atrial fibrillation, rapid ventricular response. HISTORY OF PRESENT ILLNESS: The patient is an 84-year-old gentleman who has a history of hypertension, COPD, who was recently diagnosed with atrial fibrillation just 2 weeks ago at [facility]. The patient spontaneously cardioverted at that time, was not fully anticoagulated, and discharged as it was only his first episode of atrial fibrillation that self-terminated. The patient presented to the emergency room with palpitations starting this morning without any aggravating factors. The patient did not have chest pain or shortness of breath, or nausea, vomiting, or diaphoresis. The patient's heart rate was about 120, even though initially started at 150 beats per minute. The patient was admitted and a cardiology consultation was obtained for further evaluation and management. REVIEW OF SYSTEMS: Negative other than what is mentioned in history of present illness. PAST MEDICAL HISTORY: As mentioned above. FAMILY HISTORY: Noncontributory. SOCIAL HISTORY: He lives at home. Does not smoke or drink alcohol. PHYSICAL EXAMINATION: VITAL SIGNS: Blood pressure was 110/72, pulse was 150 on arrival, currently is 110, respirations 15. He is afebrile. HEAD AND NECK: No JVD. LUNGS: Clear. CARDIOVASCULAR: Regular S1 and S2 with no gallop or murmur. ABDOMEN: Soft. EXTREMITIES: No pitting edema. LABORATORY AND DIAGNOSTIC DATA: Labs show white count of 8.4, hemoglobin of 9.1, hematocrit of 30, and platelet count is 193. Sodium 142, potassium 4.2, BUN of 30, creatinine 1.3, and glucose of 123. Troponin is negative and BNP is 16,506. T4 and TSH are within normal range. ASSESSMENT AND PLAN: 1. Recurrence of atrial fibrillation with rapid ventricular response. The patient received IV metoprolol 5 mg x3 in the emergency room with improvement in the heart rate. On the previous admission, the patient was on metoprolol 50 mg b.i.d., amiodarone 200 mg daily. I would resume at 200 mg b.i.d. At this time, the patient needs to be anticoagulated with Eliquis 5 mg b.i.d. 2. Hypertension. Continue metoprolol 50 mg b.i.d. 3. History of anemia. 4. Status post recent [id number] myocardial infarction with chest pain, inferolateral T-wave inversion, elevated troponin that was preceded by atrial fibrillation. Continue aspirin, beta-gunnar, and statin. Thank you very much Dr. Meraz for allowing me to participate in the care of this patient. Please do not hesitate to contact me for any questions regarding my evaluation. Cade Saeed M.D. DR: JOY JOB#: [id number] CC:
[2020-05-06] MEDS: Dorzolamide 2% 10ml Btl BOTH EYES SCH (18:31)
[2020-05-06] MEDS: Docusate 100mg cap ORAL SCH (18:31)
[2020-05-06] MEDS: Eliquis 5mg tablet ORAL SCH (18:31)
--- NOTE | 2020-05-06 19:27 | NUR ---
NURSE HAND-OFF REPORT: Important Events on Shift: New Admit with Aflutter Patient Status: Stable Diet: Regular with Chopped Pending Orders: Pending Results/Labs: Pending MD notification: Latest Vital Signs: Temperature 96.6 , Pulse 99 , B/P 126 /75 , Respiratory Rate 18 , O2 SAT 96 , Room Air, O2 Flow Rate 3.0 . Vital Sign Comment: EKG Rhythm: Atrial Flutter Rhythm change?: N MD Notified?: - MD Response: Latest Fernandez Fall Score: 30 Fall Risk: Medium Risk Safety Measures: Call light Within Reach, Bed Alarm Zone 1, Side Rails Side Rails x2, Bed position Low and Locked. Fall Precautions: Yellow Socks Yellow Gown Door Sign Report given to Antony.
--- NOTE | 2020-05-06 19:59 | NUR ---
NURSE NOTES: Report received from Sofy MON. Patient is noted to be alert and oriented x 4. Patient is noted to be on 3 liters of oxygen, patient is noted not to report chest pain at this time and denies shortness of breath. Patient is noted to be in a-flutter rhythm, was endorsed to Antony MON that Doctor Peggy is aware. Patient is noted to have left AC 20 IV access. Patient has no further complaints at this time. Was endorsed to Antony MON that patient will use bed side commode with minimal assistance. Bed is locked, alarmed, and in lowest position. Call light in reach. Will continue to follow plan of care.
[2020-05-06 20:00] VITALS: BP 100/68
[2020-05-06] MEDS: Metoprolol Tartrate 50mg tab ORAL SCH (20:29)
[2020-05-06] MEDS: Amiodarone 200mg tab ORAL SCH (20:34)
[2020-05-06] MEDS: Theophylline ER 100mg ORAL SCH (20:34)
[2020-05-06] MEDS: Latanoprost 0.005% Opth 2.5ml Soln BOTH EYES SCH (20:35)
[2020-05-06] MEDS: Wixela 250/50 Inhaler - 60 dose INH SCH (21:43)
[2020-05-06] MEDS: Albuterol 90mcg Inhaler 8gm INH SCH (21:43)
[2020-05-07] VITALS: BP 118/73
--- NOTE | 2020-05-07 01:00 | History and Physical Report ---
DATE OF ADMISSION: 05/06/2020 HISTORY OF PRESENT ILLNESS: Patient comes from a facility, is being admitted for atrial fibrillation with rapid ventricular response. The patient also has hypothyroidism, has history of hypertension . Patient denies shortness of breath. Denies nausea, vomiting, or diarrhea. Denies chest pain. Denies fever or chills. Does have palpitation. Denies abdominal pain. Denies nausea, vomiting, or diarrhea. Denies cold or cough. PAST MEDICAL HISTORY: Atrial fibrillation, history of constipation, glaucoma, BPH, hyperlipidemia, COPD, and hypertension. PAST SURGICAL HISTORY: None. ALLERGIES: Lisinopril. FAMILY HISTORY: Noncontributory. SOCIAL HISTORY: Denies history of smoking. Denies history of alcohol or illicit drugs. MEDICATIONS: Albuterol, finasteride daily, Xalatan, magnesium , metoprolol, nitroglycerin, polyethylene glycol, simvastatin, and tramadol. REVIEW OF SYSTEMS: HEENT: Denies headaches. RESPIRATORY: Denies shortness of breath. Denies cough. CARDIOVASCULAR: Denies chest pain. GASTROINTESTINAL: Denies nausea, vomiting, or diarrhea. EXTREMITIES: Denies pain. CENTRAL NERVOUS SYSTEM: Denies change in speech pattern. PHYSICAL EXAMINATION: VITAL SIGNS: Temperature 97.2, pulse 100, blood pressure 133/70. HEENT: PERRLA. NECK: Supple. No lymphadenopathy. LUNGS: Clear to auscultation. CARDIOVASCULAR: Irregularly irregular. No murmur. GASTROINTESTINAL: Soft, nontender, nondistended. No organomegaly. EXTREMITIES: No edema. Moves all four extremities. Sensory intact to light touch. Reflexes equal on both sides. LABORATORY DATA: WBC of 3.4, hemoglobin 9.1, platelets 193. Sodium 142, potassium 4.2, BUN of 30, creatinine 1.3, glucose 123. TSH of 10.1. ASSESSMENT AND PLAN: Atrial fibrillation with rapid ventricular response and hypothyroidism. I have basically consulted Dr. Saeed, Dr. Connolly, Dr. Alonso to help with management of the above-mentioned abnormalities and abnormal findings. Baljinder Meraz M.D. DR: KATIE JOB#: [id number] CC:
[2020-05-07] MEDS: Albuterol 90mcg Inhaler 8gm INH SCH ×4 (01:42→19:44)
[2020-05-07 04:00] VITALS: BP 125/66
--- NOTE | 2020-05-07 07:22 | NUR ---
NURSE HAND-OFF REPORT: Important Events on Shift: Patient was admitted yesterday. patient was asymptomatic of chest pain, shortness of breath, and palpitations through out the shift. Patient slept most of shift. Able to get up to bedside commode and use urinal with minimal assistance. Patient Status: DNR Diet: Cardiac Pending Orders: none Pending Results/Labs:none Pending MD notification:none Latest Vital Signs: Temperature 97.1 , Pulse 80 , B/P 125 /66 , Respiratory Rate 14 , O2 SAT 100 , Nasal Cannula, O2 Flow Rate 3.0 . Vital Sign Comment: patient desaturates easily without oxygen EKG Rhythm: SR, BBB Rhythm change?: N MD Notified?: N - MD Response: Latest Fenrandez Fall Score: 30 Fall Risk: Medium Risk Safety Measures: Call light Within Reach, Bed Alarm Zone 1, Side Rails Side Rails x2, Bed position Low and Locked. Fall Precautions: Yellow Socks Yellow Gown Door Sign Report given to Hattie RN.
--- NOTE | 2020-05-07 07:30 | NUR ---
NURSE NOTES: RECEIVED PATIENT A/A/OX4, ABLE TO MAKE NEEDS KNOWN. HOB ON SEMI STEEVNS'S POSITION TO ALLEVIATE VENTILATION. ON O2 3L VIA NC. NO ACUTE CARDIO-RESP DISTRESS NOTED. AM ASSESSMENTS RENDERED. PATIENT ABLE TO FEED SELF INDEPENDENTLY. SKIN IS INTACT. KEPT BED IN THE LOWEST POSITION. SIDERAILS ARE UPX2, BED BRAKES AND LOCK @ ALL TIMES. CALL LIGHT IS WITHIN REACH. WILL CONT TO MONITOR.
[2020-05-07] MEDS: Wixela 250/50 Inhaler - 60 dose INH SCH ×2 (07:35→21:00)
[2020-05-07 08:00] VITALS: BP 123/60
[2020-05-07] MEDS: Metoprolol Tartrate 50mg tab ORAL SCH ×2 (08:51→21:36)
[2020-05-07] MEDS: Docusate 100mg cap ORAL SCH ×2 (08:51→17:17)
[2020-05-07] MEDS: Ascorbic Acid 500mg tab ORAL SCH (08:51)
[2020-05-07] MEDS: Eliquis 5mg tablet ORAL SCH ×2 (08:51→17:17)
[2020-05-07] MEDS: Multivitamin w/Minerals tab ORAL SCH (08:51)
[2020-05-07] MEDS: Dorzolamide 2% 10ml Btl BOTH EYES SCH ×2 (08:52→17:17)
[2020-05-07] MEDS: Theophylline ER 100mg ORAL SCH ×2 (08:52→21:36)
[2020-05-07] MEDS: Amiodarone 200mg tab ORAL SCH ×2 (08:52→21:37)
[2020-05-07] MEDS ORDERED: Metoprolol Tartrate 50mg tab ORAL SCH (09:00)
--- NOTE | 2020-05-07 10:08 | NUR ---
CASE MANAGEMENT:REVIEW BIBA FROM [facility] CC; PALPITATIONS SI: AFIB W/RVR. SVT. UTI 98.1 150 16 96/63 98% ON 2L/NC BNP+[id number] FREE T3-1.7 IS: 1L NS BOLUS IV METOPROLOL Q15 MIN X3 IV ROCEPHIN URINE CX : TO TELEMETRY
[2020-05-07 10:11] LABS: ANION GAP 0 mmol/L (5-15); BLOOD UREA NITROGEN 30 mg/dL (7-18); CALCIUM 8.3 MG/DL (8.5-10.1); CARBON DIOXIDE 36 MMOL/L (21-32); CHLORIDE 104 MMOL/L (98-107); CREATININE 1.4 MG/DL (0.55-1.30); POTASSIUM 4.5 MMOL/L (3.5-5.1); SODIUM 140 MMOL/L (136-145)
[2020-05-07 10:27] LABS: ALANINE AMINOTRANSFERASE 46 U/L (12-78); ALBUMIN 2.7 G/DL (3.4-5.0); ALKALINE PHOSPHATASE 54 U/L (46-116); ASPARTATE AMINO TRANSFERASE 23 U/L (15-37); BILIRUBIN,TOTAL 0.2 MG/DL (0.2-1.0); CHOLESTEROL 117 MG/DL (< 200); FERRITIN 90 NG/ML (8-388); GAMMA GLUTAMYL TRANSPEPTIDASE 14 U/L (5-85); HDL CHOLESTEROL 71 MG/DL (40-60); TRIGLYCERIDES 29 MG/DL (30-150)
[2020-05-07 11:26] LABS: % IRON SATURATION 7 % (15-50); IRON 19 ug/dL (50-175); TOTAL IRON BINDING CAPACITY 288 ug/dL (250-450)
[2020-05-07 11:35] VITALS: BP 127/67
--- NOTE | 2020-05-07 15:22 | NUR ---
NURSE NOTES: DR WICK MADE AWARE OF THE EKG RESULT. NO NEW ORDERS NOTED. WILL CONT TO MONITOR.
--- NOTE | 2020-05-07 15:39 | Consultation ---
Consult Note Consult Note I am asked to evaluate the patient at the request of Dr. Almaraz for rising serum creatinine 84-year-old male history of hypertension COPD atrial fibrillation presents with palpitations that started this morning no known aggravating relieving factors severity is moderate, constant patient denies any chest pain or shortness of breath no nausea no vomiting no fevers no chills no abdominal pain patient presents for evaluation and treatment Allergies: LISINOPRIL (Verified Allergy, Unknown, 04/17/20) COVID-19 Screening Contact w/high risk pt: No Experienced COVID-19 symptoms?: No COVID-19 Testing performed [place] STRIP GAUGER: No Hx Cardiac Problems: Yes Hx Hypertension: Yes Hx COPD: Yes Hx Gastrointestinal Problems: Yes PHYSICAL EXAMINATION: VITAL SIGNS: Blood pressure was 110/72, pulse was 150 on arrival, currently is 110, respirations 15. He is afebrile. HEAD AND NECK: No JVD. LUNGS: Clear. CARDIOVASCULAR: Regular S1 and S2 with no gallop or murmur. ABDOMEN: Soft. EXTREMITIES: No pitting edema. LABORATORY AND DIAGNOSTIC DATA: Labs show white count of 8.4, hemoglobin of 9.1, hematocrit of 30, and platelet count is 193. Sodium 142, potassium 4.2, BUN of 30, creatinine 1.3, and glucose of 123. Troponin is negative and BNP is 16,506. T4 and TSH are within normal range. . Assessment/Plan Imp: Acute renal failure, serum creatinine jack to 1.4 Admitted with atrial fibrillation with fast ventricular rate Evidence of urinary tract infection History of hypertension Anemia Coronary artery disease Proteinuria Sugg: Continue per cardiology advice Rate control BP control Monitor renal parameters Avoid nephrotoxic's Per orders Cliff Connolly MD May 07, 2020 15:39
[2020-05-07 15:40] VITALS: BP 120/66
--- NOTE | 2020-05-07 15:40 | Cardiac Electrophysiology PN ---
Assessment/Plan Assessment/Plan 1. Recurrent typical atrial flutter with rapid ventricular response. The patient received IV metoprolol 5 mg x3 in the emergency room with improvement in the heart rate.On metoprolol 50 mg b.i.d., amiodarone 400 mg b.i.d. and Eliquis 5 mg b.i.d. Will need atrial flutter ablation. 2. Hypertension. Continue metoprolol 50 mg b.i.d. 3. History of anemia. 4. Status post recent [id number] myocardial infarction with chest pain, inferolateral T-wave inversion, elevated troponin that was preceded by atrial fibrillation. Continue aspirin, beta-gunnar, and statin. DW RN Subjective Subjective Remained in Atrial flutter and converted to SR but back again in flutter and again SR Objective Last 24 Hour Vital Signs Date Time Temp Pulse Resp B/P (MAP) Pulse Ox O2 Delivery O2 Flow Rate FiO2 05/07/20 13:29 82 18 97 Nasal Cannula 3.0 32 05/07/20 13:19 82 18 96 Nasal Cannula 3.0 32 05/07/20 12:00 91 05/07/20 11:35 97.0 92 20 127/67 (87) 97 05/07/20 09:00 Room Air 3.0 05/07/20 08:51 94 123/60 05/07/20 08:00 95 05/07/20 08:00 96.7 94 20 123/60 (81) 96 05/07/20 07:39 86 16 98 Nasal Cannula 3.0 32 05/07/20 07:39 87 19 99 Nasal Cannula 3.0 32 05/07/20 07:38 79 18 98 Nasal Cannula 3.0 32 05/07/20 07:38 80 18 98 Nasal Cannula 3.0 32 05/07/20 04:00 80 05/07/20 04:00 97.1 78 14 125/66 (85) 100 05/07/20 01:44 80 18 99 Nasal Cannula 3.0 32 05/07/20 01:42 80 18 99 Nasal Cannula 3.0 32 05/07/20 00:00 97.7 81 18 118/73 (88) 100 05/07/20 00:00 80 05/06/20 21:46 81 18 100 Nasal Cannula 3.0 32 05/06/20 21:46 82 18 100 Nasal Cannula 3.0 32 05/06/20 21:43 79 18 100 Nasal Cannula 3.0 32 05/06/20 21:43 78 18 100 Nasal Cannula 3.0 32 05/06/20 21:00 Nasal Cannula 3.0 05/06/20 20:29 88 100/68 05/06/20 20:00 97.9 88 18 100/68 (79) 100 05/06/20 20:00 75 05/06/20 16:00 96.6 82 18 126/75 (92) 96 05/06/20 16:00 99 Intake and Output 05/06/20 05/07/20 19:00 07:00 Intake Total 180 ml 240 ml Output Total 0 ml 120 ml Balance 180 ml 120 ml Intake Oral 180 ml 240 ml Output Urine Total 0 ml 120 ml # Voids 1 2 Laboratory Tests Test 05/07/20 09:20 Sodium Level 140 MMOL/L (136-145) Potassium Level 4.5 MMOL/L (3.5-5.1) Chloride Level 104 MMOL/L (98-107) Carbon Dioxide Level 36 MMOL/L (21-32) H Anion Gap 0 mmol/L (5-15) L Blood Urea Nitrogen 30 mg/dL (7-18) H Creatinine 1.4 MG/DL (0.55-1.30) H Estimat Glomerular Filtration Rate 58.3 mL/min (>60) Glucose Level 108 MG/DL (74-106) H Hemoglobin A1c 5.1 % (4.3-6.0) Uric Acid 5.2 MG/DL (2.6-7.2) Calcium Level 8.3 MG/DL (8.5-10.1) L Magnesium Level 1.9 MG/DL (1.8-2.4) Iron Level 19 ug/dL (50-175) L Total Iron Binding Capacity 288 ug/dL (250-450) Percent Iron Saturation 7 % (15-50) L Unsaturated Iron Binding 269 ug/dL (112-346) Ferritin 90 NG/ML (8-388) Total Bilirubin 0.2 MG/DL (0.2-1.0) Gamma Glutamyl Transpeptidase 14 U/L (5-85) Aspartate Amino Transf (AST/SGOT) 23 U/L (15-37) Alanine Aminotransferase (ALT/SGPT) 46 U/L (12-78) Alkaline Phosphatase 54 U/L (46-116) C-Reactive Protein, Quantitative 2.3 mg/dL (0.00-0.90) H Pro-B-Type Natriuretic Peptide 7236 pg/mL (0-125) H Total Protein 5.5 G/DL (6.4-8.2) L Albumin 2.7 G/DL (3.4-5.0) L Globulin 2.8 g/dL Albumin/Globulin Ratio 1.0 (1.0-2.7) Triglycerides Level 29 MG/DL (30-150) L Cholesterol Level 117 MG/DL (< 200) LDL Cholesterol 42 mg/dL (<100) HDL Cholesterol 71 MG/DL (40-60) H Cholesterol/HDL Ratio 1.6 (3.3-4.4) L Vitamin B12 Level 371 PG/ML (193-986) Folate 17.1 NG/ML (8.6-58.9) Thyroid Stimulating Hormone (TSH) 8.638 uiU/mL (0.358-3.740) Microbiology Date/Time Source Procedure Growth Status 05/06/20 11:30 Urine,Clean Catch Urine Culture - Preliminary NO GROWTH Resulted 05/06/20 10:20 Nasopharynx SARS-CoV-2 RdRp Gene Assay - Final Complete 05/06/20 10:00 Rectum Received Objective HEAD AND NECK: No JVD. LUNGS: Clear. CARDIOVASCULAR: Regular S1 and S2 with no gallop or murmur. ABDOMEN: Soft. EXTREMITIES: No pitting edema. Cade Saeed MD May 07, 2020 15:40
--- NOTE | 2020-05-07 17:15 | Consultation ---
DATE OF CONSULTATION: 05/07/2020 ENDOCRINOLOGY CONSULTATION CONSULTING PHYSICIAN: Rober Alonso MD. REFERRING PHYSICIAN: Baljinder Meraz MD. REASON FOR CONSULTATION: Elevated TSH. HISTORY OF PRESENT ILLNESS: The patient is an 84-year-old male, who lives at a prison facility, was brought to the emergency department with atrial fibrillation with rapid ventricular response, also has history of hypothyroidism, hypertension, atrial fibrillation diagnosed two weeks ago at [facility] and spontaneously converted at that time. I was called to manage the hypothyroidism, since the TSH is 10. The patient was treated with amiodarone at that time during the previous admission. MEDICATIONS: Reviewed and reconciled. SOCIAL HISTORY: Resides in a prison facility. FAMILY HISTORY: Noncontributory. REVIEW OF SYSTEMS: As per HPI. LABORATORY VALUES: WBC 8, hemoglobin 9, hematocrit 30, platelets of 193. Sodium 142, potassium 4.2, chloride 106, bicarb 34, BUN 30, creatinine 1.3. BNP of 16,506. TSH of 10.1, free T4 of 0.8, free T3 of 1.7. PHYSICAL EXAMINATION: GENERAL: Awake. VITAL SIGNS: Blood pressure is 123/60, heart rate 94, temperature 96.7, respiratory rate of 20. HEENT: Pupils are equal and reactive to light. Sclerae are anicteric. NECK: No JVD. No thyromegaly. LUNGS: Clear. HEART: . ABDOMEN: Positive bowel sounds. Soft. EXTREMITIES: No clubbing, cyanosis, edema. DIAGNOSES: 1. New onset hypothyroidism, most likely secondary to amiodarone administered during the recent admission. 2. Atrial fibrillation. PLAN: Repeat TSH. Currently, the patient is on amiodarone and the TSH still on the higher side, we will start the patient on low-dose levothyroxine and TSH, free T4 will be repeated in four weeks. I will follow during the hospital stay. Thank you, Dr. Meraz, for the courtesy of this consultation. Rober Alonso M.D. DR: YAA/OPAL JOB#: [id number] CC:
--- NOTE | 2020-05-07 17:50 | NUR ---
NURSE NOTES: U/A SENT TO THE LAB. WILL CONT TO MONITOR.
[2020-05-07 18:21] LABS: APPEARANCE,URINE CLEAR; BILIRUBIN, URINE NEGATIVE (NEGATIVE); GLUCOSE, URINE (UA) NEGATIVE (NEGATIVE); KETONES,URINE NEGATIVE (NEGATIVE); LEUKOCYTE ESTERASE ,URINE NEGATIVE (NEGATIVE); NITRITE,URINE NEGATIVE (NEGATIVE); PH,URINE 5 (4.5-8.0); PROTEIN,URINE 2+ (NEGATIVE); UROBILINOGEN,URINE NORMAL MG/DL (0.0-1.0)
[2020-05-07 18:22] LABS: COLOR,URINE YELLOW
--- NOTE | 2020-05-07 18:55 | NUR ---
NURSE HAND-OFF REPORT: Important Events on Shift:[EKG DONE AND CARDIO AWARE. U/A SENT TO LAB,MONITOR OXYGENATION] Patient Status: [IMPROVING] Diet: [MECH SOFT GROUND] Pending Orders: [AM LABS] Pending Results/Labs:[] Pending MD notification:[] Latest Vital Signs: Temperature 96.9 , Pulse 69 , B/P 120 /66 , Respiratory Rate 20 , O2 SAT 100 , Room Air, O2 Flow Rate 3.0 . Vital Sign Comment: [] EKG Rhythm: SR W/ BBB Rhythm change?: N MD Notified?: N - MD Response: Latest Fernandez Fall Score: 30 Fall Risk: Medium Risk Safety Measures: Call light Within Reach, Bed Alarm Zone 1, Side Rails Side Rails x2, Bed position Low and Locked. Fall Precautions: Yellow Socks Yellow Gown Door Sign Patient Fall Education Report given to [GIULIA].
--- NOTE | 2020-05-07 19:25 | NUR ---
NURSE NOTES: Important Events on Shift: Received report from Rosibel Barnes LVN. Pt is awake, A&O x 4, denies pain at this time. Will continue plan of care and close monitoring. Patient Status: stable Diet: Regular mech soft ground Pending Orders: None Pending Results/Labs: TSH Pending MD notification: None Latest Vital Signs: Temperature 97.9 , Pulse 81 , B/P 147 /72 , Respiratory Rate 18 , O2 SAT 98 , Nasal Cannula, O2 Flow Rate 2.0 . Vital Sign Comment: stable EKG Rhythm: SR w/BBB Rhythm change?: N MD Notified?: N - MD Response: Latest Fernandez Fall Score: 45 Fall Risk: High Risk Safety Measures: Call light Within Reach, Bed Alarm Zone 1, Side Rails Side Rails x2, Bed position Low and Locked. Fall Precautions: Yellow Socks yes Yellow Gown yes Door Sign yes Patient Fall Education yes
[2020-05-07 20:00] VITALS: BP 132/62
[2020-05-07] MEDS: Latanoprost 0.005% Opth 2.5ml Soln BOTH EYES SCH (21:00)
--- NOTE | 2020-05-07 21:36 | General Progress Note ---
Subjective ROS Limited/Unobtainable: Yes Allergies: Coded Allergies: LISINOPRIL (Verified Allergy, Unknown, 04/17/20) Objective Last 24 Hour Vital Signs Date Time Temp Pulse Resp B/P (MAP) Pulse Ox O2 Delivery O2 Flow Rate FiO2 05/07/20 19:45 77 18 98 Nasal Cannula 3.0 32 05/07/20 19:44 76 18 98 Nasal Cannula 3.0 32 05/07/20 16:00 69 05/07/20 15:40 96.9 70 20 120/66 (84) 100 05/07/20 13:29 82 18 97 Nasal Cannula 3.0 32 05/07/20 13:19 82 18 96 Nasal Cannula 3.0 32 05/07/20 12:00 91 05/07/20 11:35 97.0 92 20 127/67 (87) 97 05/07/20 09:00 Room Air 3.0 05/07/20 08:51 94 123/60 05/07/20 08:00 95 05/07/20 08:00 96.7 94 20 123/60 (81) 96 05/07/20 07:39 86 16 98 Nasal Cannula 3.0 32 05/07/20 07:39 87 19 99 Nasal Cannula 3.0 32 05/07/20 07:38 79 18 98 Nasal Cannula 3.0 32 05/07/20 07:38 80 18 98 Nasal Cannula 3.0 32 05/07/20 04:00 80 05/07/20 04:00 97.1 78 14 125/66 (85) 100 05/07/20 01:44 80 18 99 Nasal Cannula 3.0 32 05/07/20 01:42 80 18 99 Nasal Cannula 3.0 32 05/07/20 00:00 97.7 81 18 118/73 (88) 100 05/07/20 00:00 80 05/06/20 21:46 81 18 100 Nasal Cannula 3.0 32 05/06/20 21:46 82 18 100 Nasal Cannula 3.0 32 05/06/20 21:43 79 18 100 Nasal Cannula 3.0 32 05/06/20 21:43 78 18 100 Nasal Cannula 3.0 32 Intake and Output 05/06/20 05/07/20 19:00 07:00 Intake Total 180 ml 240 ml Output Total 0 ml 120 ml Balance 180 ml 120 ml Intake Oral 180 ml 240 ml Output Urine Total 0 ml 120 ml # Voids 1 2 Laboratory Tests 05/07/20 09:20: Sodium Level 140, Potassium Level 4.5, Chloride Level 104, Carbon Dioxide Level 36H, Anion Gap 0L, Blood Urea Nitrogen 30H, Creatinine 1.4H, Estimat Glomerular Filtration Rate 58.3, Glucose Level 108H, Hemoglobin A1c 5.1, Uric Acid 5.2, Calcium Level 8.3L, Magnesium Level 1.9, Iron Level 19L, Total Iron Binding Capacity 288, Percent Iron Saturation 7L, Unsaturated Iron Binding 269, Ferritin 90, Total Bilirubin 0.2, Gamma Glutamyl Transpeptidase 14, Aspartate Amino Transf (AST/SGOT) 23, Alanine Aminotransferase (ALT/SGPT) 46, Alkaline Phosphatase 54, C-Reactive Protein, Quantitative 2.3H, Pro-B-Type Natriuretic Peptide 7236H, Total Protein 5.5L, Albumin 2.7L, Globulin 2.8, Albumin/Globulin Ratio 1.0, Triglycerides Level 29L, Cholesterol Level 117, LDL Cholesterol 42, HDL Cholesterol 71H, Cholesterol/HDL Ratio 1.6L, Vitamin B12 Level 371, Folate 17.1, Thyroid Stimulating Hormone (TSH) 8.638H 05/07/20 17:42: Urine Color Yellow, Urine Appearance Clear, Urine pH 5, Urine Specific [place] 1.020, Urine Protein 2+H, Urine Glucose (UA) Negative, Urine Ketones Negative, Urine Blood Negative, Urine Nitrite Negative, Urine Bilirubin Negative, Urine Urobilinogen Normal, Urine Leukocyte Esterase Negative, Urine RBC 0, Urine WBC 5-10H, Urine Squamous Epithelial Cells Few, Urine Bacteria Few, Urine Trichomonas FewH Height (Feet): 5 Height (Inches): 5.00 Weight (Pounds): 138 Assessment/Plan Problem List: (1) Atrial fibrillation with RVR ICD Codes: I48.91 - Unspecified atrial fibrillation SNOMED: 656402984685171 (2) UTI (urinary tract infection) ICD Codes: N39.0 - Urinary tract infection, site not specified SNOMED: 22243639 Qualifiers: Qualified Codes: N39.0 - Urinary tract infection, site not specified Status: progressing Assessment/Plan: no cp a fib w rvr improving uti afebrile reviewed chart Baljinder Meraz MD May 07, 2020 21:36
[2020-05-08] VITALS: BP 147/72
[2020-05-08] MEDS: Albuterol 90mcg Inhaler 8gm INH SCH ×4 (00:57→20:04)
[2020-05-08 04:00] VITALS: BP 117/72
--- NOTE | 2020-05-08 07:19 | NUR ---
NURSE HAND-OFF REPORT: Important Events on Shift: None Patient Status: stable Diet: Regular mech soft ground Pending Orders: none Pending Results/Labs: TSH Pending MD notification: none Latest Vital Signs: Temperature 99.0 , Pulse 81 , B/P 117 /72 , Respiratory Rate 14 , O2 SAT 97 , Nasal Cannula, O2 Flow Rate 2.0 . Vital Sign Comment: stable EKG Rhythm: SR w/BBB Rhythm change?: N MD Notified?: N - MD Response: Latest Fernandez Fall Score: 45 Fall Risk: High Risk Safety Measures: Call light Within Reach, Bed Alarm Zone 1, Side Rails Side Rails x2, Bed position Low and Locked. Fall Precautions: yes Yellow Socks yes Yellow Gown yes Door Sign yes Patient Fall Education yes Report given to Sean Mora RN
[2020-05-08] MEDS: Wixela 250/50 Inhaler - 60 dose INH SCH ×2 (07:48→21:23)
[2020-05-08 08:00] VITALS: BP 134/70
[2020-05-08] MEDS: Theophylline ER 100mg ORAL SCH ×2 (09:02→21:39)
[2020-05-08] MEDS: Amiodarone 200mg tab ORAL SCH ×2 (09:03→21:40)
[2020-05-08] MEDS: Ascorbic Acid 500mg tab ORAL SCH (09:03)
[2020-05-08] MEDS: Docusate 100mg cap ORAL SCH ×2 (09:03→17:59)
[2020-05-08] MEDS: Multivitamin w/Minerals tab ORAL SCH (09:03)
[2020-05-08] MEDS: Eliquis 5mg tablet ORAL SCH ×2 (09:03→17:58)
[2020-05-08] MEDS: Dorzolamide 2% 10ml Btl BOTH EYES SCH ×2 (09:04→18:00)
[2020-05-08] MEDS: Metoprolol Tartrate 50mg tab ORAL SCH ×2 (09:14→21:41)
--- NOTE | 2020-05-08 11:59 | NUR ---
NURSE NOTES: Patient had 4 seconds of paroxysmal aflutter. Dr. Cade Saeed aware, notified by Hattie, Charge Nurse.
[2020-05-08 12:00] VITALS: BP 149/75
--- NOTE | 2020-05-08 12:36 | Nephrology Progress Note ---
Assessment/Plan Problem List: (1) LD (acute kidney injury) (2) Anemia (3) Atrial fibrillation with RVR (4) UTI (urinary tract infection) (5) Proteinuria Assessment Acute renal failure, serum creatinine jack to 1.4 Admitted with atrial fibrillation with fast ventricular rate Evidence of urinary tract infection History of hypertension Anemia Coronary artery disease Proteinuria Plan Intravenous iron ordered Continue per cardiology advice Rate control BP control Monitor renal parameters Avoid nephrotoxic's Per orders Subjective ROS Limited/Unobtainable: No Constitutional: Reports: malaise Objective Objective Last 24 Hour Vital Signs Date Time Temp Pulse Resp B/P (MAP) Pulse Ox O2 Delivery O2 Flow Rate FiO2 05/08/20 09:14 72 134/70 05/08/20 09:00 Nasal Cannula 3.0 Nasal Cannula 3.0 05/08/20 08:00 97.1 72 20 134/70 (91) 100 05/08/20 08:00 72 05/08/20 07:53 76 18 98 Nasal Cannula 2.0 28 05/08/20 07:50 74 18 98 Nasal Cannula 2.0 28 05/08/20 07:49 73 18 98 Nasal Cannula 2.0 28 05/08/20 07:48 69 18 99 Nasal Cannula 2.0 28 05/08/20 04:00 65 05/08/20 04:00 99.0 81 14 117/72 (87) 97 05/08/20 00:59 81 18 98 Nasal Cannula 2.0 28 05/08/20 00:57 80 18 97 Nasal Cannula 2.0 28 05/08/20 00:00 97.9 78 15 147/72 (97) 97 05/07/20 21:36 77 120/66 05/07/20 21:00 Nasal Cannula 3.0 32 05/07/20 21:00 Nasal Cannula 3.0 05/07/20 21:00 Nasal Cannula 3.0 32 05/07/20 20:00 99.0 83 16 132/62 (85) 95 05/07/20 19:45 77 18 98 Nasal Cannula 3.0 32 05/07/20 19:44 76 18 98 Nasal Cannula 3.0 32 05/07/20 16:00 69 05/07/20 15:40 96.9 70 20 120/66 (84) 100 05/07/20 13:29 82 18 97 Nasal Cannula 3.0 32 05/07/20 13:19 82 18 96 Nasal Cannula 3.0 32 Intake and Output 05/07/20 05/08/20 19:00 07:00 Intake Total 720 ml 300 ml Output Total 750 ml 400 ml Balance -30 ml -100 ml Intake Oral 720 ml 300 ml Output Urine Total 750 ml 400 ml # Voids 2 Laboratory Tests 05/07/20 17:42: Urine Color Yellow, Urine Appearance Clear, Urine pH 5, Urine Specific [place] 1.020, Urine Protein 2+H, Urine Glucose (UA) Negative, Urine Ketones Negative, Urine Blood Negative, Urine Nitrite Negative, Urine Bilirubin Negative, Urine Urobilinogen Normal, Urine Leukocyte Esterase Negative, Urine RBC 0, Urine WBC 5-10H, Urine Squamous Epithelial Cells Few, Urine Bacteria Few, Urine Trichomonas FewH Height (Feet): 5 Height (Inches): 5.00 Weight (Pounds): 138 General Appearance: no apparent distress EENT: other - On nasal cannula Cardiovascular: normal rate Respiratory/Chest: decreased breath sounds Abdomen: soft Objective No change Cliff Connolly MD May 08, 2020 12:36
--- NOTE | 2020-05-08 13:10 | Cardiac Electrophysiology PN ---
Assessment/Plan Assessment/Plan 1. Recurrent typical atrial flutter with rapid ventricular response. The patient received IV metoprolol 5 mg x3 in the emergency room with improvement in the heart rate.On metoprolol 50 mg b.i.d., amiodarone 400 mg b.i.d. and Eliquis 5 mg b.i.d. Will need atrial flutter ablation. 2. 9 beats of nonsustained VT. On beta gunnar 2. Hypertension. Continue metoprolol 50 mg b.i.d. 3. History of anemia. 4. Status post recent [id number] myocardial infarction with chest pain, inferolateral T-wave inversion, elevated troponin Continue aspirin, beta-gunnar, and statin. DW RN Subjective Subjective Still goes in and out of Atrial flutter with RVR. Also had 10 beats of VT. Objective Last 24 Hour Vital Signs Date Time Temp Pulse Resp B/P (MAP) Pulse Ox O2 Delivery O2 Flow Rate FiO2 05/08/20 12:00 74 05/08/20 12:00 96.8 77 20 149/75 (99) 99 05/08/20 09:14 72 134/70 05/08/20 09:00 Nasal Cannula 3.0 Nasal Cannula 3.0 05/08/20 08:00 97.1 72 20 134/70 (91) 100 05/08/20 08:00 72 05/08/20 07:53 76 18 98 Nasal Cannula 2.0 28 05/08/20 07:50 74 18 98 Nasal Cannula 2.0 28 05/08/20 07:49 73 18 98 Nasal Cannula 2.0 28 05/08/20 07:48 69 18 99 Nasal Cannula 2.0 28 05/08/20 04:00 65 05/08/20 04:00 99.0 81 14 117/72 (87) 97 05/08/20 00:59 81 18 98 Nasal Cannula 2.0 28 05/08/20 00:57 80 18 97 Nasal Cannula 2.0 28 05/08/20 00:00 97.9 78 15 147/72 (97) 97 05/07/20 21:36 77 120/66 05/07/20 21:00 Nasal Cannula 3.0 32 05/07/20 21:00 Nasal Cannula 3.0 05/07/20 21:00 Nasal Cannula 3.0 32 05/07/20 20:00 99.0 83 16 132/62 (85) 95 05/07/20 19:45 77 18 98 Nasal Cannula 3.0 32 05/07/20 19:44 76 18 98 Nasal Cannula 3.0 32 05/07/20 16:00 69 05/07/20 15:40 96.9 70 20 120/66 (84) 100 05/07/20 13:29 82 18 97 Nasal Cannula 3.0 32 05/07/20 13:19 82 18 96 Nasal Cannula 3.0 32 Intake and Output 05/07/20 05/08/20 19:00 07:00 Intake Total 720 ml 300 ml Output Total 750 ml 400 ml Balance -30 ml -100 ml Intake Oral 720 ml 300 ml Output Urine Total 750 ml 400 ml # Voids 2 Laboratory Tests Test 05/07/20 17:42 Urine Color Yellow Urine Appearance Clear Urine pH 5 (4.5-8.0) Urine Specific [place] 1.020 (1.005-1.035) Urine Protein 2+ (NEGATIVE) H Urine Glucose (UA) Negative (NEGATIVE) Urine Ketones Negative (NEGATIVE) Urine Blood Negative (NEGATIVE) Urine Nitrite Negative (NEGATIVE) Urine Bilirubin Negative (NEGATIVE) Urine Urobilinogen Normal MG/DL (0.0-1.0) Urine Leukocyte Esterase Negative (NEGATIVE) Urine RBC 0 /HPF (0 - 0) Urine WBC 5-10 /HPF (0 - 0) H Urine Squamous Epithelial Cells Few /LPF (NONE/OCC) Urine Bacteria Few /HPF (NONE) Urine Trichomonas Few /HPF (NONE) H Microbiology Date/Time Source Procedure Growth Status 05/06/20 11:30 Urine,Clean Catch Urine Culture - Final Mixed Urogenital Contaminants Complete 05/06/20 10:20 Nasopharynx SARS-CoV-2 RdRp Gene Assay - Final Complete 05/06/20 10:00 Rectum VRE Culture - Final NO VANCOMYCIN RESISTANT ENTEROCOCCUS ... Complete 05/06/20 10:00 Rectum - Final NO CARBAPENEM-RESISTANT ENTEROBACTERI... Complete 05/06/20 10:00 Nasal Nares MRSA Culture - Final NO METHICILLIN RESISTANT STAPH AUREUS... Complete Objective HEAD AND NECK: No JVD. LUNGS: Clear. CARDIOVASCULAR: Regular S1 and S2 with no gallop or murmur. ABDOMEN: Soft. EXTREMITIES: No pitting edema. Cade Saeed MD May 08, 2020 13:10
--- NOTE | 2020-05-08 13:51 | General Progress Note ---
Subjective Allergies: Coded Allergies: LISINOPRIL (Verified Allergy, Unknown, 04/17/20) All Systems: reviewed and negative except above Subjective events noted interval notes reviewed Objective Last 24 Hour Vital Signs Date Time Temp Pulse Resp B/P (MAP) Pulse Ox O2 Delivery O2 Flow Rate FiO2 05/08/20 12:00 74 05/08/20 12:00 96.8 77 20 149/75 (99) 99 05/08/20 09:14 72 134/70 05/08/20 09:00 Nasal Cannula 3.0 Nasal Cannula 3.0 05/08/20 08:00 97.1 72 20 134/70 (91) 100 05/08/20 08:00 72 05/08/20 07:53 76 18 98 Nasal Cannula 2.0 28 05/08/20 07:50 74 18 98 Nasal Cannula 2.0 28 05/08/20 07:49 73 18 98 Nasal Cannula 2.0 28 05/08/20 07:48 69 18 99 Nasal Cannula 2.0 28 05/08/20 04:00 65 05/08/20 04:00 99.0 81 14 117/72 (87) 97 05/08/20 00:59 81 18 98 Nasal Cannula 2.0 28 05/08/20 00:57 80 18 97 Nasal Cannula 2.0 28 05/08/20 00:00 97.9 78 15 147/72 (97) 97 05/07/20 21:36 77 120/66 05/07/20 21:00 Nasal Cannula 3.0 32 05/07/20 21:00 Nasal Cannula 3.0 05/07/20 21:00 Nasal Cannula 3.0 32 05/07/20 20:00 99.0 83 16 132/62 (85) 95 05/07/20 19:45 77 18 98 Nasal Cannula 3.0 32 05/07/20 19:44 76 18 98 Nasal Cannula 3.0 32 05/07/20 16:00 69 05/07/20 15:40 96.9 70 20 120/66 (84) 100 Intake and Output 05/07/20 05/08/20 19:00 07:00 Intake Total 720 ml 300 ml Output Total 750 ml 400 ml Balance -30 ml -100 ml Intake Oral 720 ml 300 ml Output Urine Total 750 ml 400 ml # Voids 2 Laboratory Tests 05/07/20 17:42: Urine Color Yellow, Urine Appearance Clear, Urine pH 5, Urine Specific [place] 1.020, Urine Protein 2+H, Urine Glucose (UA) Negative, Urine Ketones Negative, Urine Blood Negative, Urine Nitrite Negative, Urine Bilirubin Negative, Urine Urobilinogen Normal, Urine Leukocyte Esterase Negative, Urine RBC 0, Urine WBC 5-10H, Urine Squamous Epithelial Cells Few, Urine Bacteria Few, Urine Trichomonas FewH Height (Feet): 5 Height (Inches): 5.00 Weight (Pounds): 138 General Appearance: no apparent distress Neck: normal alignment Cardiovascular: irregularly irregular Respiratory/Chest: lungs clear Abdomen: normal bowel sounds Objective Current Medications Medications (Trade) Dose Ordered Sig/Eulalia Route PRN Reason Start Time Stop Time Status Last Admin Dose Admin Acetaminophen (Tylenol) 1,000 mg Q8H PRN ORAL MILD PAIN/TEMP >100.4F 05/06/20 16:00 06/05/20 15:59 Albuterol Sulfate (Proventil MDI) 2 puff Q6HRT INH 05/06/20 19:00 08/04/20 18:59 05/08/20 07:48 Amiodarone HCl (Cordarone) 400 mg EVERY 12 HOURS ORAL 05/06/20 21:00 08/04/20 20:59 05/08/20 09:03 Apixaban (Eliquis) 5 mg BID ORAL 05/06/20 18:00 08/04/20 17:59 05/08/20 09:03 Artificial Tears (Akwa-Tears) 1 drop FIVE TIMES A DAY BOTH EYES 05/06/20 19:00 06/05/20 18:59 05/08/20 09:04 Ascorbic Acid (Vitamin C) 500 mg DAILY ORAL 05/07/20 09:00 06/06/20 08:59 05/08/20 09:03 Atorvastatin Calcium (Lipitor) 10 mg BEDTIME ORAL 05/08/20 21:00 06/05/20 20:59 Docusate Sodium (Colace) 100 mg TWICE A DAY ORAL 05/08/20 18:00 06/07/20 17:59 Dorzolamide HCl (Trusopt) 1 drop BID BOTH EYES 05/06/20 18:00 06/05/20 17:59 05/08/20 09:04 Finasteride (Proscar) 5 mg DAILY ORAL 05/07/20 09:00 12/25/20 08:59 05/08/20 09:03 Iron Sucrose 100 mg/Sodium Chloride 55 ml @ 200 mls/hr BEDTIME IV 05/08/20 21:00 05/17/20 21:17 Latanoprost (Xalatan) 1 drop BEDTIME BOTH EYES 05/06/20 21:00 06/05/20 20:59 05/07/20 21:00 Magnesium Hydroxide (Mom) 30 ml DAILY PRN ORAL Constipation 05/06/20 16:00 06/05/20 15:59 Metoprolol Tartrate (Lopressor) 5 mg Q5MIN X 3 IVP 05/06/20 10:30 08/04/20 10:29 05/06/20 10:41 Metoprolol Tartrate (Lopressor) 50 mg Q12HR ORAL 05/06/20 21:00 08/04/20 20:59 05/08/20 09:14 Multivitamins Therapeutic (Therapeutic Multivitamin) 1 ea DAILY ORAL 05/07/20 09:00 06/06/20 08:59 05/08/20 09:03 Nitroglycerin (Ntg) 0.4 mg Q5MIN X 3 DOSES PRN SL CHEST PAIN 05/06/20 16:00 06/05/20 15:59 Non-Formulary Medication (Non-Formulary Med) 1 ea DAILY INH 05/07/20 09:00 06/06/20 08:59 UNV Non-Formulary Medication (Non-Formulary Med) 1 ea DAILY TOPIC 05/07/20 09:00 05/22/20 09:00 UNV Pantoprazole (Protonix) 40 mg DAILY ORAL 05/08/20 12:45 06/07/20 12:44 Polyethylene Glycol (Miralax) 17 gm Q12H PRN ORAL Constipation 05/06/20 16:00 06/05/20 15:59 Prednisone (predniSONE) 20 mg DAILY ORAL 05/07/20 09:00 06/06/20 08:59 05/08/20 09:02 Salmeterol Xinafoate/ Fluticasone (Advair 250/50 Diskus) 1 puffs EVERY 12 HOURS INH 05/06/20 21:00 08/04/20 20:59 05/08/20 07:48 Theophylline (Lucien-Dur) 200 mg Q12HR ORAL 05/06/20 21:00 08/04/20 20:59 05/08/20 09:02 Tramadol HCl (Ultram) 50 mg Q8H PRN ORAL Moderate Pain (Pain Scale 4-6) 05/06/20 16:00 05/13/20 15:59 Assessment/Plan Problem List: (1) Subclinical hypothyroidism ICD Codes: E03.9 - Hypothyroidism, unspecified SNOMED: 65853151 (2) Atrial fibrillation with RVR ICD Codes: I48.91 - Unspecified atrial fibrillation SNOMED: 131009233132441 (3) UTI (urinary tract infection) ICD Codes: N39.0 - Urinary tract infection, site not specified SNOMED: 17998513 Qualifiers: Qualified Codes: N39.0 - Urinary tract infection, site not specified Status: progressing Assessment/Plan: TSH repeated and improved - now is < 10 free T4 is normal will start low dose Levothyroxine 25 mcg daily repeat TSH, free T4 in 3 weeks Rober Alonso MD May 08, 2020 13:51
--- NOTE | 2020-05-08 14:11 | Cardiology Report ---
APPROVED REPORT EKG Measurement Heart [id number] [place] 136P [id number] <Conclusion> Normal sinus rhythm Left ventricular hypertrophy with QRS widening Anterolateral infarct, age undetermined Marked T wave abnormality, consider inferior ischemia Abnormal ECG
[2020-05-08] MEDS ORDERED: COSOPT EYE DROP10 M1 BOTH EYES (14:18)
[2020-05-08] MEDS ORDERED: VITAMIN A & D113 GM TP (14:18)
--- NOTE | 2020-05-08 14:58 | Cardiology Report ---
APPROVED REPORT EKG Measurement Heart [id number] [place] 192P [id number] <Conclusion> A. Fib-Flutter Right bundle branch block T wave abnormality, consider lateral ischemia Abnormal ECG
--- NOTE | 2020-05-08 14:59 | Cardiology Report ---
APPROVED REPORT EKG Measurement Heart [id number] <Conclusion> Supraventricular tachycardia with premature ventricular complexes or fusion complexes Incomplete right bundle branch block ST & Marked T wave abnormality, consider anterolateral ischemia Abnormal ECG
--- NOTE | 2020-05-08 15:53 | NUR ---
NURSE NOTES: Left message on voicemail of Dr. Baljinder Meraz regarding two medications to follow-up on, the first being an anti-itch cream and the second is for shortness of breath/COPD. Addendum: 05/08/20 at 1555 by GEMA ARREAGA RN Incfelicita Ellipta is the medication for COPD.
[2020-05-08 16:00] VITALS: BP 122/68
--- NOTE | 2020-05-08 18:47 | NUR ---
NURSE HAND-OFF REPORT: Important Events on Shift:None Patient Status: Stable Diet: Regular mechanical soft ground. Pending Orders: N/A Pending Results/Labs:N/A Pending MD notification:N/A Latest Vital Signs: Temperature 97.7 , Pulse 66 , B/P 122 /68 , Respiratory Rate 20 , O2 SAT 100 , Nasal Cannula, O2 Flow Rate 2.0 . Vital Sign Comment: N/A EKG Rhythm: SR w/BBB Rhythm change?: N MD Notified?: N - MD Response: Latest Fernandez Fall Score: 45 Fall Risk: High Risk Safety Measures: Call light Within Reach, Bed Alarm Zone 1, Side Rails Side Rails x2, Bed position Low and Locked. Fall Precautions: Yellow Socks Yellow Gown Door Sign Patient Fall Education Report given to Oncoming Staff. Addendum: 05/08/20 at 1929 by GEMA ARREAGA RN Report given to Patience Lee RN.
--- NOTE | 2020-05-08 19:05 | NUR ---
NURSE NOTES: Received rpeort from YAA Estrada. Patient is awake on bed, alert and oriented x 4. employee relations specialist is in place, shows Sinus rhythm with BBB. On oxygen via nasal cannula @ 3Lpm with no SOB reported. On fall and aspiration precaution. On regular, mechanical soft ground. IV site is on left AC G-20 saline lock that is patent and intact. Safety measures are in place, bed in lowest and locked position, side rails up x 2, call light button and bedside table within reach, instructed to call for any assistance needed. WILL continue plan of care.
[2020-05-08 20:00] VITALS: BP 135/67
--- NOTE | 2020-05-08 20:38 | General Progress Note ---
Subjective ROS Limited/Unobtainable: Yes Allergies: Coded Allergies: LISINOPRIL (Verified Allergy, Unknown, 04/17/20) Objective Last 24 Hour Vital Signs Date Time Temp Pulse Resp B/P (MAP) Pulse Ox O2 Delivery O2 Flow Rate FiO2 05/08/20 20:05 79 18 98 Nasal Cannula 2.0 28 05/08/20 20:04 77 18 98 Nasal Cannula 2.0 28 05/08/20 16:00 66 05/08/20 16:00 97.7 66 20 122/68 (86) 100 05/08/20 13:51 77 18 99 Nasal Cannula 2.0 28 05/08/20 13:49 74 18 99 Nasal Cannula 2.0 28 05/08/20 12:00 74 05/08/20 12:00 96.8 77 20 149/75 (99) 99 05/08/20 09:14 72 134/70 05/08/20 09:00 Nasal Cannula 3.0 Nasal Cannula 3.0 05/08/20 08:00 97.1 72 20 134/70 (91) 100 05/08/20 08:00 72 05/08/20 07:53 76 18 98 Nasal Cannula 2.0 28 05/08/20 07:50 74 18 98 Nasal Cannula 2.0 28 05/08/20 07:49 73 18 98 Nasal Cannula 2.0 28 05/08/20 07:48 69 18 99 Nasal Cannula 2.0 28 05/08/20 04:00 65 05/08/20 04:00 99.0 81 14 117/72 (87) 97 05/08/20 00:59 81 18 98 Nasal Cannula 2.0 28 05/08/20 00:57 80 18 97 Nasal Cannula 2.0 28 05/08/20 00:00 97.9 78 15 147/72 (97) 97 05/07/20 21:36 77 120/66 05/07/20 21:00 Nasal Cannula 3.0 32 05/07/20 21:00 Nasal Cannula 3.0 05/07/20 21:00 Nasal Cannula 3.0 32 Intake and Output 05/07/20 05/08/20 19:00 07:00 Intake Total 720 ml 300 ml Output Total 750 ml 400 ml Balance -30 ml -100 ml Intake Oral 720 ml 300 ml Output Urine Total 750 ml 400 ml # Voids 2 Height (Feet): 5 Height (Inches): 5.00 Weight (Pounds): 138 Assessment/Plan Problem List: (1) Atrial fibrillation with RVR ICD Codes: I48.91 - Unspecified atrial fibrillation SNOMED: 017707716865252 (2) UTI (urinary tract infection) ICD Codes: N39.0 - Urinary tract infection, site not specified SNOMED: 79421946 Qualifiers: Qualified Codes: N39.0 - Urinary tract infection, site not specified Status: progressing Assessment/Plan: a fib w rvr improving uti improving afebrilre reviewed chart and labs Baljinder Meraz MD May 08, 2020 20:38
[2020-05-08] MEDS: Latanoprost 0.005% Opth 2.5ml Soln BOTH EYES SCH (21:42)
[2020-05-09] VITALS: BP 137/59
[2020-05-09] MEDS: Albuterol 90mcg Inhaler 8gm INH SCH ×4 (00:47→19:43)
[2020-05-09 04:00] VITALS: BP 138/66
[2020-05-09] MEDS: Levothyroxine 25mcg tab ORAL SCH (06:16)
--- NOTE | 2020-05-09 06:54 | General Progress Note ---
Subjective Allergies: Coded Allergies: LISINOPRIL (Verified Allergy, Unknown, 04/17/20) All Systems: reviewed and negative except above Subjective events noted interval notes reviewed Objective Last 24 Hour Vital Signs Date Time Temp Pulse Resp B/P (MAP) Pulse Ox O2 Delivery O2 Flow Rate FiO2 05/09/20 04:00 67 05/09/20 04:00 98.1 59 16 138/66 (90) 100 05/09/20 00:48 73 18 99 Nasal Cannula 2.0 28 05/09/20 00:47 69 18 99 Nasal Cannula 2.0 28 05/09/20 00:00 98.1 60 16 137/59 (85) 100 05/09/20 00:00 63 05/08/20 21:41 65 135/67 05/08/20 21:24 73 18 98 Nasal Cannula 2.0 28 05/08/20 21:24 76 18 98 Nasal Cannula 2.0 28 05/08/20 21:00 Nasal Cannula 3.0 Nasal Cannula 3.0 05/08/20 20:05 79 18 98 Nasal Cannula 2.0 28 05/08/20 20:04 77 18 98 Nasal Cannula 2.0 28 05/08/20 20:00 97.3 65 16 135/67 (89) 100 05/08/20 20:00 63 05/08/20 16:00 66 05/08/20 16:00 97.7 66 20 122/68 (86) 100 05/08/20 13:51 77 18 99 Nasal Cannula 2.0 28 05/08/20 13:49 74 18 99 Nasal Cannula 2.0 28 05/08/20 12:00 74 05/08/20 12:00 96.8 77 20 149/75 (99) 99 05/08/20 09:14 72 134/70 05/08/20 09:00 Nasal Cannula 3.0 Nasal Cannula 3.0 05/08/20 08:00 97.1 72 20 134/70 (91) 100 05/08/20 08:00 72 05/08/20 07:53 76 18 98 Nasal Cannula 2.0 28 05/08/20 07:50 74 18 98 Nasal Cannula 2.0 28 05/08/20 07:49 73 18 98 Nasal Cannula 2.0 28 05/08/20 07:48 69 18 99 Nasal Cannula 2.0 28 Intake and Output 05/08/20 05/09/20 19:00 07:00 Intake Total 720 ml Output Total 600 ml Balance 120 ml Intake Oral 720 ml Output Urine Total 600 ml # Voids 2 # Bowel Movements 2 Height (Feet): 5 Height (Inches): 5.00 Weight (Pounds): 138 General Appearance: no apparent distress Neck: normal alignment Cardiovascular: arrhythmia Respiratory/Chest: decreased breath sounds Abdomen: normal bowel sounds Objective Current Medications Medications (Trade) Dose Ordered Sig/Eulalia Route PRN Reason Start Time Stop Time Status Last Admin Dose Admin Acetaminophen (Tylenol) 1,000 mg Q8H PRN ORAL MILD PAIN/TEMP >100.4F 05/06/20 16:00 06/05/20 15:59 Albuterol Sulfate (Proventil MDI) 2 puff Q6HRT INH 05/06/20 19:00 08/04/20 18:59 05/09/20 00:47 Amiodarone HCl (Cordarone) 400 mg EVERY 12 HOURS ORAL 05/06/20 21:00 08/04/20 20:59 05/08/20 21:40 Apixaban (Eliquis) 5 mg BID ORAL 05/06/20 18:00 08/04/20 17:59 05/08/20 17:58 Artificial Tears (Akwa-Tears) 1 drop FIVE TIMES A DAY BOTH EYES 05/06/20 19:00 06/05/20 18:59 05/09/20 06:17 Ascorbic Acid (Vitamin C) 500 mg DAILY ORAL 05/07/20 09:00 06/06/20 08:59 05/08/20 09:03 Atorvastatin Calcium (Lipitor) 10 mg BEDTIME ORAL 05/08/20 21:00 06/05/20 20:59 05/08/20 21:41 Docusate Sodium (Colace) 100 mg TWICE A DAY ORAL 05/08/20 18:00 06/07/20 17:59 05/08/20 17:59 Dorzolamide HCl (Trusopt) 1 drop BID BOTH EYES 05/06/20 18:00 06/05/20 17:59 05/08/20 18:00 Finasteride (Proscar) 5 mg DAILY ORAL 05/07/20 09:00 08/05/20 08:59 05/08/20 09:03 Iron Sucrose 100 mg/Sodium Chloride 55 ml @ 200 mls/hr BEDTIME IV 05/08/20 21:00 05/17/20 21:17 05/08/20 21:42 Latanoprost (Xalatan) 1 drop BEDTIME BOTH EYES 05/06/20 21:00 06/05/20 20:59 05/08/20 21:42 Levothyroxine Sodium (Synthroid) 25 mcg DAILY@0630 ORAL 05/09/20 06:30 06/08/20 06:29 05/09/20 06:16 Magnesium Hydroxide (Mom) 30 ml DAILY PRN ORAL Constipation 05/06/20 16:00 06/05/20 15:59 Metoprolol Tartrate (Lopressor) 50 mg Q12HR ORAL 05/06/20 21:00 08/04/20 20:59 05/08/20 21:41 Multivitamins Therapeutic (Therapeutic Multivitamin) 1 ea DAILY ORAL 05/07/20 09:00 06/06/20 08:59 05/08/20 09:03 Nitroglycerin (Ntg) 0.4 mg Q5MIN X 3 DOSES PRN SL CHEST PAIN 05/06/20 16:00 06/05/20 15:59 Non-Formulary Medication (Non-Formulary Med) 1 ea DAILY INH 05/07/20 09:00 06/06/20 08:59 UNV Non-Formulary Medication (Non-Formulary Med) 1 ea DAILY TOPIC 05/07/20 09:00 05/22/20 09:00 UNV Pantoprazole (Protonix) 40 mg DAILY ORAL 05/08/20 12:45 06/07/20 12:44 05/08/20 13:53 Polyethylene Glycol (Miralax) 17 gm Q12H PRN ORAL Constipation 05/06/20 16:00 06/05/20 15:59 Prednisone (predniSONE) 20 mg DAILY ORAL 05/07/20 09:00 06/06/20 08:59 05/08/20 09:02 Salmeterol Xinafoate/ Fluticasone (Advair 250/50 Diskus) 1 puffs EVERY 12 HOURS INH 05/06/20 21:00 08/04/20 20:59 05/08/20 21:23 Theophylline (Lucien-Dur) 200 mg Q12HR ORAL 05/06/20 21:00 08/04/20 20:59 05/08/20 21:39 Tramadol HCl (Ultram) 50 mg Q8H PRN ORAL Moderate Pain (Pain Scale 4-6) 05/06/20 16:00 05/13/20 15:59 Assessment/Plan Problem List: (1) Subclinical hypothyroidism ICD Codes: E03.9 - Hypothyroidism, unspecified SNOMED: 11590404 (2) Atrial fibrillation with RVR ICD Codes: I48.91 - Unspecified atrial fibrillation SNOMED: 376990641847108 (3) UTI (urinary tract infection) ICD Codes: N39.0 - Urinary tract infection, site not specified SNOMED: 76819581 Qualifiers: Qualified Codes: N39.0 - Urinary tract infection, site not specified Status: progressing Assessment/Plan: continue Levothyroxine 25 mcg daily repeat TSH, free T4 in 3 weeks I sign off Rober Alonso MD May 09, 2020 06:54
[2020-05-09 07:23] LABS: BASOPHILS % (AUTO) 0.7 % (0.0-2.0); EOSINOPHILS % (AUTO) 0.4 % (0.0-3.0); HEMATOCRIT 27.3 % (42.0-52.0); HEMOGLOBIN 8.2 G/DL (14.2-18.0); LYMPHOCYTES % (AUTO) 12.3 % (20.0-45.0); MEAN CORPUSCULAR VOLUME 81 FL (80-99); MONOCYTES % (AUTO) 9.4 % (1.0-10.0); NEUTROPHILS % (AUTO) 77.2 % (45.0-75.0); PLATELET COUNT 145 K/UL (150-450); RED BLOOD COUNT 3.38 M/UL (4.70-6.10); RED CELL DISTRIBUTION WIDTH 16.5 % (11.6-14.8); WHITE BLOOD COUNT 4.6 K/UL (4.8-10.8)
[2020-05-09 07:43] LABS: ALBUMIN 2.7 G/DL (3.4-5.0); ALBUMIN/GLOBULIN RATIO 0.9 (1.0-2.7); BILIRUBIN,TOTAL 0.3 MG/DL (0.2-1.0); CALCIUM 8.7 MG/DL (8.5-10.1); CREATININE 1.4 MG/DL (0.55-1.30); PHOSPHORUS 3.7 MG/DL (2.5-4.9); POTASSIUM 5.4 MMOL/L (3.5-5.1)
--- NOTE | 2020-05-09 07:46 | NUR ---
NURSE HAND-OFF REPORT: Important Events on Shift: Patient has been resting well the whole shift Patient Status: Patient is awake on bed in stable condition with no complaints made at this time Diet: Regular, mechanical soft Pending Orders: none Pending Results/Labs:cbc, cmp, c-reactive, phos, uric Pending MD notification: none Latest Vital Signs: Temperature 98.1 , Pulse 67 , B/P 138 /66 , Respiratory Rate 16 , O2 SAT 100 , Nasal Cannula, O2 Flow Rate 2.0 . Vital Sign Comment: stable EKG Rhythm: SR w/BBB Rhythm change?: N MD Notified?: N - MD Response: Latest Fernandez Fall Score: 45 Fall Risk: High Risk Safety Measures: Call light Within Reach, Bed Alarm Zone 1, Side Rails Side Rails x2, Bed position Low and Locked. Fall Precautions: Yellow Socks Yellow Gown Door Sign Patient Fall Education Report given to YAA Márquez.
[2020-05-09 08:00] VITALS: BP 129/67
--- NOTE | 2020-05-09 08:02 | NUR ---
NURSE NOTES: report received after 720. Pt is resting. Pt has court recording monitor no signs of cardiac or respiratory distress at this time. Bed is locked and in lowest position. Call light within reach. will continue to monitor pat
[2020-05-09] MEDS: Wixela 250/50 Inhaler - 60 dose INH SCH ×2 (08:40→21:36)
[2020-05-09] MEDS: Multivitamin w/Minerals tab ORAL SCH (08:57)
[2020-05-09] MEDS: Metoprolol Tartrate 50mg tab ORAL SCH ×2 (08:57→21:00)
[2020-05-09] MEDS: Amiodarone 200mg tab ORAL SCH ×2 (08:57→21:01)
[2020-05-09] MEDS: Eliquis 5mg tablet ORAL SCH ×2 (08:58→18:12)
[2020-05-09] MEDS: Theophylline ER 100mg ORAL SCH ×2 (08:58→21:01)
[2020-05-09] MEDS: Docusate 100mg cap ORAL SCH ×2 (08:58→18:12)
[2020-05-09] MEDS: Ascorbic Acid 500mg tab ORAL SCH (08:58)
[2020-05-09] MEDS: Dorzolamide 2% 10ml Btl BOTH EYES SCH ×2 (08:59→18:12)
--- NOTE | 2020-05-09 09:59 | Cardiac Electrophysiology PN ---
Assessment/Plan Assessment/Plan 1. Recurrent typical atrial flutter with rapid ventricular response. The patient received IV metoprolol 5 mg x3 in the emergency room with improvement in the heart rate. On metoprolol 50 mg b.i.d., amiodarone 400 mg b.i.d. and Eliquis 5 mg b.i.d. Will need transfer to [facility] for atrial flutter ablation.Decrease Amiodarone to 200 po bid 2. 9 beats of nonsustained VT. On beta gunnar 2. Hypertension. Continue metoprolol 50 mg b.i.d. 3. History of anemia. 4. Status post recent [id number] myocardial infarction with chest pain, inferolateral T-wave inversion, elevated troponin. Continue aspirin, beta- gunnar, and statin. Will need transfer to [facility] for Cardiac cath DW RN Subjective Subjective Still goes in and out of Atrial flutter with RVR.Had 10 beats of VT yesterday. Remained in SR overnight Objective Last 24 Hour Vital Signs Date Time Temp Pulse Resp B/P (MAP) Pulse Ox O2 Delivery O2 Flow Rate FiO2 05/09/20 08:57 68 129/67 05/09/20 08:43 68 18 99 Nasal Cannula 2.0 28 05/09/20 08:43 68 18 99 Nasal Cannula 2.0 05/09/20 08:42 62 18 98 Nasal Cannula 2.0 05/09/20 08:40 65 18 98 Nasal Cannula 2.0 05/09/20 08:00 96.8 63 22 129/67 (87) 93 05/09/20 04:00 67 05/09/20 04:00 98.1 59 16 138/66 (90) 100 05/09/20 00:48 73 18 99 Nasal Cannula 2.0 05/09/20 00:47 69 18 99 Nasal Cannula 2.0 05/09/20 00:00 98.1 60 16 137/59 (85) 100 05/09/20 00:00 63 05/08/20 21:41 65 135/67 05/08/20 21:24 73 18 98 Nasal Cannula 2.0 28 05/08/20 21:24 76 18 98 Nasal Cannula 2.0 05/08/20 21:00 Nasal Cannula 3.0 Nasal Cannula 3.0 05/08/20 20:05 79 18 98 Nasal Cannula 2.0 28 05/08/20 20:04 77 18 98 Nasal Cannula 2.0 28 05/08/20 20:00 97.3 65 16 135/67 (89) 100 05/08/20 20:00 63 05/08/20 16:00 66 05/08/20 16:00 97.7 66 20 122/68 (86) 100 05/08/20 13:51 77 18 99 Nasal Cannula 2.0 28 05/08/20 13:49 74 18 99 Nasal Cannula 2.0 28 05/08/20 12:00 74 05/08/20 12:00 96.8 77 20 149/75 (99) 99 Intake and Output 05/08/20 05/09/20 18:59 06:59 Intake Total 720 ml Output Total 600 ml Balance 120 ml Intake Oral 720 ml Output Urine Total 600 ml # Voids 2 # Bowel Movements 2 Laboratory Tests Test 05/09/20 05:25 White Blood Count 4.6 K/UL (4.8-10.8) L Red Blood Count 3.38 M/UL (4.70-6.10) L Hemoglobin 8.2 G/DL (14.2-18.0) L Hematocrit 27.3 % (42.0-52.0) L Mean Corpuscular Volume 81 FL (80-99) Mean Corpuscular Hemoglobin 24.3 PG (27.0-31.0) L Mean Corpuscular Hemoglobin Concent 30.1 G/DL (32.0-36.0) L Red Cell Distribution Width 16.5 % (11.6-14.8) H Platelet Count 145 K/UL (150-450) L Mean Platelet Volume 6.2 FL (6.5-10.1) L Neutrophils (%) (Auto) 77.2 % (45.0-75.0) H Lymphocytes (%) (Auto) 12.3 % (20.0-45.0) L Monocytes (%) (Auto) 9.4 % (1.0-10.0) Eosinophils (%) (Auto) 0.4 % (0.0-3.0) Basophils (%) (Auto) 0.7 % (0.0-2.0) Sodium Level 140 MMOL/L (136-145) Potassium Level 5.4 MMOL/L (3.5-5.1) H Chloride Level 105 MMOL/L (98-107) Carbon Dioxide Level 35 MMOL/L (21-32) H Anion Gap 0 mmol/L (5-15) L Blood Urea Nitrogen 31 mg/dL (7-18) H Creatinine 1.4 MG/DL (0.55-1.30) H Estimat Glomerular Filtration Rate 58.3 mL/min (>60) Glucose Level 81 MG/DL (74-106) Uric Acid 5.9 MG/DL (2.6-7.2) Calcium Level 8.7 MG/DL (8.5-10.1) Phosphorus Level 3.7 MG/DL (2.5-4.9) Total Bilirubin 0.3 MG/DL (0.2-1.0) Aspartate Amino Transf (AST/SGOT) 14 U/L (15-37) L Alanine Aminotransferase (ALT/SGPT) 31 U/L (12-78) Alkaline Phosphatase 49 U/L (46-116) C-Reactive Protein, Quantitative 2.2 mg/dL (0.00-0.90) H Total Protein 5.6 G/DL (6.4-8.2) L Albumin 2.7 G/DL (3.4-5.0) L Globulin 2.9 g/dL Albumin/Globulin Ratio 0.9 (1.0-2.7) L Microbiology Date/Time Source Procedure Growth Status 05/06/20 11:30 Urine,Clean Catch Urine Culture - Final Mixed Urogenital Contaminants Complete 05/06/20 10:20 Nasopharynx SARS-CoV-2 RdRp Gene Assay - Final Complete 05/06/20 10:00 Rectum VRE Culture - Final NO VANCOMYCIN RESISTANT ENTEROCOCCUS ... Complete 05/06/20 10:00 Rectum - Final NO CARBAPENEM-RESISTANT ENTEROBACTERI... Complete 05/06/20 10:00 Nasal Nares MRSA Culture - Final NO METHICILLIN RESISTANT STAPH AUREUS... Complete Objective HEAD AND NECK: No JVD. LUNGS: Clear. CARDIOVASCULAR: Regular S1 and S2 with no gallop or murmur. ABDOMEN: Soft. EXTREMITIES: No pitting edema. Cade Saeed MD May 09, 2020 09:59
[2020-05-09] MEDS ORDERED: THEOPHYLLINE A100 MG ORAL (11:52)
[2020-05-09] MEDS ORDERED: PANTOPRAZOLE SO40 MG ORAL (11:53)
[2020-05-09] MEDS ORDERED: ELIQUIS5 MG PO (11:54)
[2020-05-09 12:00] VITALS: BP 133/67
[2020-05-09] MEDS ORDERED: Sodium Polystyrene Sulfonate 15gm Powder ORAL SCH (14:00)
--- NOTE | 2020-05-09 14:01 | Nephrology Progress Note ---
Assessment/Plan Problem List: (1) LD (acute kidney injury) (2) Anemia (3) Atrial fibrillation with RVR (4) UTI (urinary tract infection) (5) Proteinuria Assessment Acute renal failure, serum creatinine jack to 1.4 Admitted with atrial fibrillation with fast ventricular rate Evidence of urinary tract infection History of hypertension Anemia Coronary artery disease Proteinuria Plan May 09: Serum creatinine 1.4 unchanged. Serum potassium 5.4. Kayexalate ordered. Continue rest. Continue to monitor electrolytes and renal parameters. Intravenous iron ordered Continue per cardiology advice Rate control BP control Monitor renal parameters Avoid nephrotoxic's Per orders Subjective ROS Limited/Unobtainable: No Objective Objective Last 24 Hour Vital Signs Date Time Temp Pulse Resp B/P (MAP) Pulse Ox O2 Delivery O2 Flow Rate FiO2 05/09/20 13:49 70 18 98 Nasal Cannula 2.0 05/09/20 13:49 69 18 98 Nasal Cannula 2.0 05/09/20 12:48 65 05/09/20 08:57 68 129/67 05/09/20 08:43 68 18 99 Nasal Cannula 2.0 05/09/20 08:43 68 18 99 Nasal Cannula 2.0 05/09/20 08:42 62 18 98 Nasal Cannula 2.0 05/09/20 08:40 65 18 98 Nasal Cannula 2.0 05/09/20 08:00 75 05/09/20 08:00 96.8 63 22 129/67 (87) 93 05/09/20 04:00 67 05/09/20 04:00 98.1 59 16 138/66 (90) 100 05/09/20 00:48 73 18 99 Nasal Cannula 2.0 05/09/20 00:47 69 18 99 Nasal Cannula 2.0 05/09/20 00:00 98.1 60 16 137/59 (85) 100 05/09/20 00:00 63 05/08/20 21:41 65 135/67 05/08/20 21:24 73 18 98 Nasal Cannula 2.0 28 05/08/20 21:24 76 18 98 Nasal Cannula 2.0 05/08/20 21:00 Nasal Cannula 3.0 Nasal Cannula 3.0 05/08/20 20:05 79 18 98 Nasal Cannula 2.0 05/08/20 20:04 77 18 98 Nasal Cannula 2.0 28 05/08/20 20:00 97.3 65 16 135/67 (89) 100 05/08/20 20:00 63 05/08/20 16:00 66 05/08/20 16:00 97.7 66 20 122/68 (86) 100 Intake and Output 05/08/20 05/09/20 19:00 07:00 Intake Total 720 ml Output Total 600 ml Balance 120 ml Intake Oral 720 ml Output Urine Total 600 ml # Voids 2 # Bowel Movements 2 Laboratory Tests 05/09/20 05:25: White Blood Count 4.6L, Red Blood Count 3.38L, Hemoglobin 8.2L, Hematocrit 27.3L , Mean Corpuscular Volume 81, Mean Corpuscular Hemoglobin 24.3L, Mean Corpuscular Hemoglobin Concent 30.1L, Red Cell Distribution Width 16.5H, Platelet Count 145L, Mean Platelet Volume 6.2L, Neutrophils (%) (Auto) 77.2H, Lymphocytes (%) (Auto) 12.3L, Monocytes (%) (Auto) 9.4, Eosinophils (%) (Auto) 0.4, Basophils (%) (Auto) 0.7, Sodium Level 140, Potassium Level 5.4H, Chloride Level 105, Carbon Dioxide Level 35H, Anion Gap 0L, Blood Urea Nitrogen 31H, Creatinine 1.4H, Estimat Glomerular Filtration Rate 58.3, Glucose Level 81, Uric Acid 5.9, Calcium Level 8.7, Phosphorus Level 3.7, Total Bilirubin 0.3, Aspartate Amino Transf (AST/SGOT) 14L, Alanine Aminotransferase (ALT/SGPT) 31, Alkaline Phosphatase 49, C-Reactive Protein, Quantitative 2.2H, Total Protein 5.6L, Albumin 2.7L, Globulin 2.9, Albumin/Globulin Ratio 0.9L Height (Feet): 5 Height (Inches): 5.00 Weight (Pounds): 138 General Appearance: no apparent distress Objective No change Cliff Connolly MD May 09, 2020 14:01
--- NOTE | 2020-05-09 15:30 | NUR ---
NURSE NOTES: pt was notified he is going to another hospital for his procedure.
--- NOTE | 2020-05-09 15:35 | NUR ---
CASE MANAGEMENT: REVIEW SI: LD . ANEMIA . A-FIB w/RVR T 96.8 HR 59 RR 22 BP 138/66 SAT 93% NC/2L WBC 4.6 H/H 8.2/27.3 K 5.4 BUN 31 CR 1.4 IS: AMIODARONE PO Q12HR KAYEXALATE PO X1 VENOFER IV QHS METOPROLOL PO Q12HR ELIQUIS PO BID NITROGLYCERIN SL Q5MIN X3 DOSES PRN TELEMETRY UNIT STATUS DCP: PATIENT IS FROM [facility]. TRANSFER TO [facility] FOR [facility]ARDIAC ABLATION
--- NOTE | 2020-05-09 15:40 | NUR ---
CASE MANAGEMENT: DCP PER MD ORDER PATIENT REFERRED TO [facility] FOR CARDIAC ABLATION SPOKE WITH ISABELA [phone] PH / FAX [phone] PENDING BED AVAILABILITY PATIENT IN AGREEMENT WITH TRANSFERRING TO [facility]
[2020-05-09 16:00] VITALS: BP 136/68
--- NOTE | 2020-05-09 19:43 | NUR ---
NURSE HAND-OFF REPORT: Important Events on Shift:pt will be transferring to [facility] waiting for bed, potassium high see latest labs Patient Status: DNR may intubate Diet: Pending Orders: transfer Pending Results/Labs: Pending MD notification: Latest Vital Signs: Temperature 96.8 , Pulse 62 , B/P 136 /68 , Respiratory Rate 22 , O2 SAT 94 , Nasal Cannula, O2 Flow Rate 2.0 . Vital Sign Comment: EKG Rhythm: SR w/BBB Rhythm change?: N MD Notified?: N - MD Response: Latest Fernandez Fall Score: 45 Fall Risk: High Risk Safety Measures: Call light Within Reach, Bed Alarm Zone 1, Side Rails Side Rails x2, Bed position Low and Locked. Fall Precautions: y Yellow Socks y Yellow Gown y Door Sign Patient Fall Education y Report given to Tray/RN.
[2020-05-09 20:00] VITALS: BP 134/68
--- NOTE | 2020-05-09 20:33 | NUR ---
NURSE NOTES: Received patient report from YAA Márquez. Patient shows no signs of distress or pain. Patient denies palpitation. He is AO x4. Patient is on 3L nasal canula saturating at 98%. IV is intact and patent. There are no signs of erythema, infiltration, or bleeding. Bed is in the lowest position, call light is within reach, side rails up x3. Bed side cammode next to him. Will continue to monitor.
--- NOTE | 2020-05-09 20:42 | NUR ---
NURSE NOTES: Patient is complaining of shortness of breath when changing positions. He was on 3L nasal canula and respiratory therapy asked to put in an order. Asked Dr. Meraz and he agreed to place order for 3L nasal canula. He also ordered Chest x ray stat and added Dr. Ag as consult and asked to call Dr. Ag for Chest x ray results. Orders carried out.
[2020-05-09] MEDS: Latanoprost 0.005% Opth 2.5ml Soln BOTH EYES SCH (21:00)
--- NOTE | 2020-05-09 21:00 | Pulmonology Progress Note ---
Subjective ROS Limited/Unobtainable: No Allergies: Coded Allergies: LISINOPRIL (Verified Allergy, Unknown, 04/17/20) All Systems: reviewed and negative except above Objective Last 24 Hour Vital Signs Date Time Temp Pulse Resp B/P (MAP) Pulse Ox O2 Delivery O2 Flow Rate FiO2 05/09/20 20:00 98.1 63 16 134/68 (90) 98 05/09/20 19:46 65 18 97 Nasal Cannula 2.0 05/09/20 19:43 63 18 96 Nasal Cannula 2.0 05/09/20 19:43 96 Nasal Cannula 2.0 05/09/20 16:00 62 05/09/20 16:00 96.8 62 22 136/68 (90) 94 05/09/20 13:49 70 18 98 Nasal Cannula 2.0 05/09/20 13:49 69 18 98 Nasal Cannula 2.0 05/09/20 12:48 65 05/09/20 12:00 96.9 65 20 133/67 (89) 05/09/20 09:00 Nasal Cannula 3.0 Nasal Cannula 3.0 05/09/20 08:57 68 129/67 05/09/20 08:43 68 18 99 Nasal Cannula 2.0 05/09/20 08:43 68 18 99 Nasal Cannula 2.0 05/09/20 08:42 62 18 98 Nasal Cannula 2.0 05/09/20 08:40 65 18 98 Nasal Cannula 2.0 05/09/20 08:00 75 05/09/20 08:00 96.8 63 22 129/67 (87) 93 05/09/20 04:00 67 05/09/20 04:00 98.1 59 16 138/66 (90) 100 05/09/20 00:48 73 18 99 Nasal Cannula 2.0 05/09/20 00:47 69 18 99 Nasal Cannula 2.0 05/09/20 00:00 98.1 60 16 137/59 (85) 100 05/09/20 00:00 63 05/08/20 21:41 65 135/67 05/08/20 21:24 73 18 98 Nasal Cannula 2.0 05/08/20 21:24 76 18 98 Nasal Cannula 2.0 05/08/20 21:00 Nasal Cannula 3.0 Nasal Cannula 3.0 Intake and Output 05/08/20 05/09/20 19:00 07:00 Intake Total 720 ml Output Total 600 ml Balance 120 ml Intake Oral 720 ml Output Urine Total 600 ml # Voids 2 # Bowel Movements 2 Laboratory Tests 05/09/20 05:25: White Blood Count 4.6L, Red Blood Count 3.38L, Hemoglobin 8.2L, Hematocrit 27.3L , Mean Corpuscular Volume 81, Mean Corpuscular Hemoglobin 24.3L, Mean Corpuscu lar Hemoglobin Concent 30.1L, Red Cell Distribution Width 16.5H, Platelet Count 145L, Mean Platelet Volume 6.2L, Neutrophils (%) (Auto) 77.2H, Lymphocytes (%) (Auto) 12.3L, Monocytes (%) (Auto) 9.4, Eosinophils (%) (Auto) 0.4, Basophils (%) (Auto) 0.7, Sodium Level 140, Potassium Level 5.4H, Chloride Level 105, Carbon Dioxide Level 35H, Anion Gap 0L, Blood Urea Nitrogen 31H, Creatinine 1.4H , Estimat Glomerular Filtration Rate 58.3, Glucose Level 81, Uric Acid 5.9, Calcium Level 8.7, Phosphorus Level 3.7, Total Bilirubin 0.3, Aspartate Amino Transf (AST/SGOT) 14L, Alanine Aminotransferase (ALT/SGPT) 31, Alkaline Phosphatase 49, C-Reactive Protein, Quantitative 2.2H, Total Protein 5.6L, Albumin 2.7L, Globulin 2.9, Albumin/Globulin Ratio 0.9L Current Medications Medications (Trade) Dose Ordered Sig/Eulalia Route PRN Reason Start Time Stop Time Status Last Admin Dose Admin Acetaminophen (Tylenol) 1,000 mg Q8H PRN ORAL MILD PAIN/TEMP >100.4F 05/06/20 16:00 06/05/20 15:59 Albuterol Sulfate (Proventil MDI) 2 puff Q6HRT INH 05/06/20 19:00 08/04/20 18:59 05/09/20 19:43 Amiodarone HCl (Cordarone) 200 mg EVERY 12 HOURS ORAL 05/09/20 21:00 08/04/20 20:59 Apixaban (Eliquis) 5 mg BID ORAL 05/06/20 18:00 08/04/20 17:59 05/09/20 18:12 Artificial Tears (Akwa-Tears) 1 drop FIVE TIMES A DAY BOTH EYES 05/06/20 19:00 06/05/20 18:59 05/09/20 18:13 Ascorbic Acid (Vitamin C) 500 mg DAILY ORAL 05/07/20 09:00 06/06/20 08:59 05/09/20 08:58 Atorvastatin Calcium (Lipitor) 10 mg BEDTIME ORAL 05/08/20 21:00 06/05/20 20:59 05/08/20 21:41 Docusate Sodium (Colace) 100 mg TWICE A DAY ORAL 05/08/20 18:00 06/07/20 17:59 05/09/20 18:12 Dorzolamide HCl (Trusopt) 1 drop BID BOTH EYES 05/06/20 18:00 06/05/20 17:59 05/09/20 18:12 Finasteride (Proscar) 5 mg DAILY ORAL 05/07/20 09:00 08/05/20 08:59 05/09/20 08:57 Iron Sucrose 100 mg/Sodium Chloride 55 ml @ 200 mls/hr BEDTIME IV 05/08/20 21:00 05/17/20 21:17 05/08/20 21:42 Latanoprost (Xalatan) 1 drop BEDTIME BOTH EYES 05/06/20 21:00 06/05/20 20:59 05/08/20 21:42 Levothyroxine Sodium (Synthroid) 25 mcg DAILY@0630 ORAL 05/09/20 06:30 06/08/20 06:29 05/09/20 06:16 Magnesium Hydroxide (Mom) 30 ml DAILY PRN ORAL Constipation 05/06/20 16:00 06/05/20 15:59 Metoprolol Tartrate (Lopressor) 50 mg Q12HR ORAL 05/06/20 21:00 08/04/20 20:59 05/09/20 08:57 Multivitamins Therapeutic (Therapeutic Multivitamin) 1 ea DAILY ORAL 05/07/20 09:00 06/06/20 08:59 05/09/20 08:57 Nitroglycerin (Ntg) 0.4 mg Q5MIN X 3 DOSES PRN SL CHEST PAIN 05/06/20 16:00 06/05/20 15:59 Non-Formulary Medication (Non-Formulary Med) 1 ea DAILY INH 05/07/20 09:00 06/06/20 08:59 UNV Non-Formulary Medication (Non-Formulary Med) 1 ea DAILY TOPIC 05/07/20 09:00 05/22/20 09:00 UNV Pantoprazole (Protonix) 40 mg DAILY ORAL 05/08/20 12:45 06/07/20 12:44 05/09/20 08:58 Polyethylene Glycol (Miralax) 17 gm Q12H PRN ORAL Constipation 05/06/20 16:00 06/05/20 15:59 Prednisone (predniSONE) 20 mg DAILY ORAL 05/07/20 09:00 06/06/20 08:59 05/09/20 08:58 Salmeterol Xinafoate/ Fluticasone (Advair 250/50 Diskus) 1 puffs EVERY 12 HOURS INH 05/06/20 21:00 08/04/20 20:59 05/09/20 08:40 Theophylline (Lucien-Dur) 200 mg Q12HR ORAL 05/06/20 21:00 08/04/20 20:59 05/09/20 08:58 Tramadol HCl (Ultram) 50 mg Q8H PRN ORAL Moderate Pain (Pain Scale 4-6) 05/06/20 16:00 05/13/20 15:59 Assessment/Plan Assessment/Plan Pulmonary Consultation HPI Patient is an 84-year-old male with past medical history of Hypertension, COPD, Atrial fibrillation admitted with palpitations,no chest pain or shortness of breath, no nausea, vomiting,fevers,chills or abdominal pain. Significantly elevated NPA level>3000, elevatedTSH,Covid 19 negative Remains in atrialfibrillation, has had runs of VT - awaiting TF for Cardiac Catheterization DNR per [facility] Allergies: LISINOPRIL Past Medical History: Hypertension, COPD, Atrial fibrillation,GERD All Other Systems: negative except mentioned in HPI Physical Exam Vital Signs Noted, adequate O2 sats on 3L NC General Appearance: well appearing, no apparent distress, alert Head: normocephalic, atraumatic Eyes: bilateral eye PERRL, bilateral eye EOMI ENT: uvula midline, moist mucus membranes Neck: supple, thyroid normal, supple/symm/no masses Respiratory: lungs CTAB, no respiratory distress, no retraction, no accessory muscle use Cardiovascular: normal peripheral pulses, no edema, no gallop, no murmur, tachycardia, irregularly irregular Gastrointestinal: non tender, soft, no guarding, no rebound Musculoskeletal: normal inspection Neurologic: alert, oriented x3 Psychiatric: mood/affect normal Skin: no rash, warm/dry Impression: Congestive Heart Failure Atrial fibrillation with RVR- on Eliquis Ventriculat tachycardia Chronic Obstructive Pulmonary Disease Possible Pneumonia Urinary tract infection Elevated TSH - started on Levothyroxine Plan: Antibiotics HHN O2 PRN Diurese per Cardiology/Renal R/o DVT Aspiration precautions ST evaluation Laboratory Tests noted Test 05/06/20 10:00 05/06/20 11:30 White Blood Count 8.4 K/UL (4.8-10.8) Red Blood Count 3.74 M/UL (4.70-6.10) L Hemoglobin 9.1 G/DL (14.2-18.0) L Hematocrit 30.1 % (42.0-52.0) L Mean Corpuscular Volume 81 FL (80-99) Mean Corpuscular Hemoglobin 24.4 PG (27.0-31.0) L Mean Corpuscular Hemoglobin Concent 30.3 G/DL (32.0-36.0) L Red Cell Distribution Width 15.9 % (11.6-14.8) H Platelet Count 193 K/UL (150-450) Mean Platelet Volume 5.8 FL (6.5-10.1) L Neutrophils (%) (Auto) 70.9 % (45.0-75.0) Lymphocytes (%) (Auto) 13.5 % (20.0-45.0) L Monocytes (%) (Auto) 11.8 % (1.0-10.0) H Eosinophils (%) (Auto) 0.5 % (0.0-3.0) Basophils (%) (Auto) 3.2 % (0.0-2.0) H Prothrombin Time 11.3 SEC (9.30-11.50) Prothrombin Time INR 1.0 (0.9-1.1) Activated Partial Thromboplast Time 25 SEC (23-33) Sodium Level 143 MMOL/L (136-145) Potassium Level 4.2 MMOL/L (3.5-5.1) Chloride Level 106 MMOL/L (98-107) Carbon Dioxide Level 34 MMOL/L (21-32) H Anion Gap 3 mmol/L (5-15) L Blood Urea Nitrogen 30 mg/dL (7-18) H Creatinine 1.3 MG/DL (0.55-1.30) Estimated Glomerular Filtration Rate > 60 mL/min (>60) Glucose Level 123 MG/DL (74-106) H Calcium Level 8.7 MG/DL (8.5-10.1) Phosphorus Level 3.2 MG/DL (2.5-4.9) Magnesium Level 1.9 MG/DL (1.8-2.4) Total Bilirubin 0.2 MG/DL (0.2-1.0) Aspartate Amino Transferase (AST) 15 U/L (15-37) Alanine Aminotransferase (ALT) 26 U/L (12-78) Alkaline Phosphatase 60 U/L (46-116) Troponin I 0.041 ng/mL (0.000-0.056) Pro-B-Type Natriuretic Peptide 97065 pg/mL (0-125) H Total Protein 6.0 G/DL (6.4-8.2) L Albumin 2.8 G/DL (3.4-5.0) L Globulin 3.2 g/dL Albumin/Globulin Ratio 0.9 (1.0-2.7) L Lipase 165 U/L (73-393) Thyroid Stimulating Hormone (TSH) 10.191 uiU/mL (0.358-3.740) Free Thyroxine 0.80 NG/DL (0.76-1.46) Free Triiodothyronine 1.7 pg/mL (2.3-4.2) L Urine Color Yellow Urine Appearance Clear Urine pH 5 (4.5-8.0) Urine Specific [place] 1.015 (1.005-1.035) Urine Protein 2+ (NEGATIVE) H Urine Glucose (UA) Negative (NEGATIVE) Urine Ketones Negative (NEGATIVE) Urine Blood 4+ (NEGATIVE) H Urine Nitrite Negative (NEGATIVE) Urine Bilirubin Negative (NEGATIVE) Urine Urobilinogen Normal MG/DL (0.0-1.0) Urine Leukocyte Esterase Negative (NEGATIVE) Urine RBC Tntc /HPF (0 - 0) H Urine WBC 5-10 /HPF (0 - 0) H Urine Squamous Epithelial Cells Few /LPF (NONE/OCC) Urine Bacteria Moderate /HPF (NONE) H Microbiology Date/Time Source Procedure Growth Result 05/06/20 10:20 Nasopharynx SARS-CoV-2 RdRp Gene Assay - Final Negative EKG: A. fib/aflutter with RVR, rate 156, QTc 509, no acute ST elevations Chest X-Ray: basal opacifications, vascular congestion Joshua Ag MD May 09, 2020 21:00
--- NOTE | 2020-05-09 21:03 | General Progress Note ---
Subjective ROS Limited/Unobtainable: Yes Allergies: Coded Allergies: LISINOPRIL (Verified Allergy, Unknown, 04/17/20) Objective Last 24 Hour Vital Signs Date Time Temp Pulse Resp B/P (MAP) Pulse Ox O2 Delivery O2 Flow Rate FiO2 05/09/20 20:00 98.1 63 16 134/68 (90) 98 05/09/20 19:46 65 18 97 Nasal Cannula 2.0 05/09/20 19:43 63 18 96 Nasal Cannula 2.0 05/09/20 19:43 96 Nasal Cannula 2.0 28 05/09/20 16:00 62 05/09/20 16:00 96.8 62 22 136/68 (90) 94 05/09/20 13:49 70 18 98 Nasal Cannula 2.0 05/09/20 13:49 69 18 98 Nasal Cannula 2.0 05/09/20 12:48 65 05/09/20 12:00 96.9 65 20 133/67 (89) 05/09/20 09:00 Nasal Cannula 3.0 Nasal Cannula 3.0 05/09/20 08:57 68 129/67 05/09/20 08:43 68 18 99 Nasal Cannula 2.0 05/09/20 08:43 68 18 99 Nasal Cannula 2.0 05/09/20 08:42 62 18 98 Nasal Cannula 2.0 05/09/20 08:40 65 18 98 Nasal Cannula 2.0 05/09/20 08:00 75 05/09/20 08:00 96.8 63 22 129/67 (87) 93 05/09/20 04:00 67 05/09/20 04:00 98.1 59 16 138/66 (90) 100 05/09/20 00:48 73 18 99 Nasal Cannula 2.0 05/09/20 00:47 69 18 99 Nasal Cannula 2.0 05/09/20 00:00 98.1 60 16 137/59 (85) 100 05/09/20 00:00 63 05/08/20 21:41 65 135/67 05/08/20 21:24 73 18 98 Nasal Cannula 2.0 05/08/20 21:24 76 18 98 Nasal Cannula 2.0 28 Intake and Output 05/08/20 05/09/20 19:00 07:00 Intake Total 720 ml Output Total 600 ml Balance 120 ml Intake Oral 720 ml Output Urine Total 600 ml # Voids 2 # Bowel Movements 2 Laboratory Tests 05/09/20 05:25: White Blood Count 4.6L, Red Blood Count 3.38L, Hemoglobin 8.2L, Hematocrit 27.3L , Mean Corpuscular Volume 81, Mean Corpuscular Hemoglobin 24.3L, Mean Corpuscular Hemoglobin Concent 30.1L, Red Cell Distribution Width 16.5H, Platelet Count 145L, Mean Platelet Volume 6.2L, Neutrophils (%) (Auto) 77.2H, Lymphocytes (%) (Auto) 12.3L, Monocytes (%) (Auto) 9.4, Eosinophils (%) (Auto) 0.4, Basophils (%) (Auto) 0.7, Sodium Level 140, Potassium Level 5.4H, Chloride Level 105, Carbon Dioxide Level 35H, Anion Gap 0L, Blood Urea Nitrogen 31H, Creatinine 1.4H, Estimat Glomerular Filtration Rate 58.3, Glucose Level 81, Uric Acid 5.9, Calcium Level 8.7, Phosphorus Level 3.7, Total Bilirubin 0.3, Aspartate Amino Transf (AST/SGOT) 14L, Alanine Aminotransferase (ALT/SGPT) 31, Alkaline Phosphatase 49, C-Reactive Protein, Quantitative 2.2H, Total Protein 5.6L, Albumin 2.7L, Globulin 2.9, Albumin/Globulin Ratio 0.9L Height (Feet): 5 Height (Inches): 5.00 Weight (Pounds): 138 Assessment/Plan Problem List: (1) Atrial fibrillation with RVR ICD Codes: I48.91 - Unspecified atrial fibrillation SNOMED: [id number] (2) UTI (urinary tract infection) ICD Codes: N39.0 - Urinary tract infection, site not specified SNOMED: 87308307 Qualifiers: Qualified Codes: N39.0 - Urinary tract infection, site not specified Status: progressing Assessment/Plan: transfer to [facility] per dr barnes request for ablation no cp a fib w rvr improving uti improving Baljinder Meraz MD May 09, 2020 21:03
[2020-05-09] MEDS ORDERED: Varibar Nectar 240ml MC PRN (21:15)
[2020-05-09] MEDS ORDERED: Varibar Thin Liquid powder 148gm MC PRN (21:15)
[2020-05-09] MEDS ORDERED: Varibar Pudding 230ml MC PRN (21:15)
[2020-05-09] MEDS ORDERED: Varibar Honey 250ml MC PRN (21:15)
[2020-05-09] MEDS ORDERED: Ipratropium 0.02% Inh Soln 2.5ml UD HHN PRN (21:15)
[2020-05-09] MEDS ORDERED: cefTRIAXone 1gm/D5W 55ml IVPB SCH ×2 (21:15)
--- NOTE | 2020-05-09 21:29 | Diagnostic Imaging Report ---
EXAM: XR Chest, 1 View CLINICAL HISTORY: SOB TECHNIQUE: Frontal view of the chest. COMPARISON: 05/06/2020 FINDINGS: Lungs: Bibasilar airspace disease, right greater than left. This is increased as compared to recent imaging. Pleural space: Obscuration of the right costophrenic angle. No pneumothorax. Heart: Unremarkable. No cardiomegaly. Mediastinum: Unremarkable. Bones/joints: Unremarkable. Vasculature: The aorta is mildly tortuous with atherosclerotic vascular disease. IMPRESSION: 1. Bibasilar airspace disease, right greater than left, mildly increased as compared to prior imaging. 2. Small right pleural effusion.
--- NOTE | 2020-05-09 22:01 | CDS Physician Query ---
Clarification is required for compliance, coding accuracy, and to reflect severity of illness for this patient Dear Dr. Baljinder Meraz M.D. Date: 05/09/2020 CDI/CDS Name: Hossein Alonso Clinical Documentation Statement: 55-year-old Patient comes from a facility, is being admitted for atrial fibrillation with rapid ventricular response. [ H&P Baljinder Meraz M.D. 04/05/20] IMPRESSION: Atrial fibrillation with rapid ventricular response and hypothyroidism. Clinical Finding Show: BMI: 24.4kg/m2 LAB (05/06) : Chem: Albumin 2.8 [3.4-5.0], Calcium lv. 8.7 Please select the most appropriate option: [] Protein/Calorie Malnutrition [] Mild [] Moderate [] Severe [] Other [] Unable to determine [] Not Applicable Present on Admission: [] Yes [] No [] Clinically Undetermined Physician signature Date Please also document in your Progress Notes and/or Discharge Summary and indicate if the condition was present on admission. MTDD
[2020-05-09] MEDS: Doxycycline Monohydrate 100mg ORAL SCH (22:10)
--- NOTE | 2020-05-09 22:13 | CDS Physician Query ---
Clarification is required for compliance, coding accuracy, and to reflect severity of illness for this patient Dear Dr. Baljinder Meraz M.D. Date: 05/09/2020 CDIS Name: Hossein Alonso Exercise your independent professional judgment when responding to query. Question asked do not imply a particular answer is desired/expected Clinical Documentation States: Patient comes from a facility, is being admitted for atrial fibrillation with rapid ventricular response. The patient also has hypothyroidism, has history of hypertension [H&P Baljinder Meraz M.D. 05/06/20] Assessment: Acute renal failure, serum creatinine jack to 1.4 Admitted with atrial fibrillation with fast ventricular rate Evidence of urinary tract infection, History of hypertension Anemia, Coronary artery disease, Proteinuria [ Nephro PN Cliff Connolly MD 05/08/20 ] Clinical Finding Show: 05/06/20 05/07/20 05/09/20 (10:00) (09:20) (05:25) Creatinine: 1.3 1.4 1.4 BUN 30 30 31 GFR >60 >60 >60 Medication: Sodium Chloride IV Please Clarify the etiology/diagnosis associated with this findings: Was "Acute renal failure" present on admission? [] Yes [] No [] Clinically undeterminable Physician signature Date Please also document in your Progress Notes and/or Discharge Summary and indicate if the condition was present on admission. MTDD
[2020-05-10] VITALS: BP 122/65
[2020-05-10] MEDS: Albuterol 90mcg Inhaler 8gm INH SCH ×3 (01:24→13:02)
--- NOTE | 2020-05-10 03:31 | NUR ---
NURSE NOTES: Patient is asleep and shows no signs of distress or pain.
[2020-05-10 04:00] VITALS: BP 125/58
[2020-05-10] MEDS: Levothyroxine 25mcg tab ORAL SCH (06:03)
--- NOTE | 2020-05-10 07:18 | NUR ---
NURSE HAND-OFF REPORT: Important Events on Shift:[NA] Patient Status: [DNR] Diet: [Regular Mechanical Soft Ground] Pending Orders: [Venous douplex/ ST eval] Pending Results/Labs:[NA] Pending MD notification:[NA] Latest Vital Signs: Temperature 97.9 , Pulse 55 , B/P 125 /58 , Respiratory Rate 16 , O2 SAT 99 , Nasal Cannula, O2 Flow Rate 2.0 . Vital Sign Comment: [NA] EKG Rhythm: SR w/BBB Rhythm change?: N MD Notified?: N - MD Response: Latest Fernandez Fall Score: 45 Fall Risk: High Risk Safety Measures: Call light Within Reach, Bed Alarm Zone 1, Side Rails Side Rails x2, Bed position Low and Locked. Fall Precautions: Yellow Socks Yellow Gown Door Sign Patient Fall Education Report given to [YAA Márquez].
--- NOTE | 2020-05-10 07:34 | Pulmonology Progress Note ---
Subjective ROS Limited/Unobtainable: Yes Allergies: Coded Allergies: LISINOPRIL (Verified Allergy, Unknown, 04/17/20) All Systems: reviewed and negative except above Subjective care noted and reviewed overnight events noted Objective Last 24 Hour Vital Signs Date Time Temp Pulse Resp B/P (MAP) Pulse Ox O2 Delivery O2 Flow Rate FiO2 05/10/20 04:00 97.9 57 16 125/58 (80) 99 05/10/20 04:00 55 05/10/20 01:27 61 18 98 Nasal Cannula 2.0 28 05/10/20 01:24 61 18 98 Nasal Cannula 2.0 28 05/10/20 00:00 60 05/10/20 00:00 97.5 60 18 122/65 (84) 99 05/09/20 21:00 Nasal Cannula 3.0 Nasal Cannula 3.0 05/09/20 21:00 63 134/68 05/09/20 20:00 63 05/09/20 20:00 98.1 63 16 134/68 (90) 98 05/09/20 19:46 65 18 97 Nasal Cannula 2.0 28 05/09/20 19:43 63 18 96 Nasal Cannula 2.0 28 05/09/20 19:43 96 Nasal Cannula 2.0 28 05/09/20 16:00 62 05/09/20 16:00 96.8 62 22 136/68 (90) 94 05/09/20 13:49 70 18 98 Nasal Cannula 2.0 05/09/20 13:49 69 18 98 Nasal Cannula 2.0 05/09/20 12:48 65 05/09/20 12:00 96.9 65 20 133/67 (89) 05/09/20 09:00 Nasal Cannula 3.0 Nasal Cannula 3.0 05/09/20 08:57 68 129/67 05/09/20 08:43 68 18 99 Nasal Cannula 2.0 28 05/09/20 08:43 68 18 99 Nasal Cannula 2.0 28 05/09/20 08:42 62 18 98 Nasal Cannula 2.0 28 05/09/20 08:40 65 18 98 Nasal Cannula 2.0 28 05/09/20 08:00 75 05/09/20 08:00 96.8 63 22 129/67 (87) 93 Intake and Output 05/09/20 05/10/20 19:00 07:00 Intake Total 360 ml 250 ml Output Total 250 ml 450 ml Balance 110 ml -200 ml Intake Oral 360 ml 250 ml Output Urine Total 250 ml 450 ml Objective WDWN NAD reduced breath sounds bilaterally with some rhonchi [id number] without MRG NABS nontender no HSM no CCE altered Current Medications Medications (Trade) Dose Ordered Sig/Eulalia Route PRN Reason Start Time Stop Time Status Last Admin Dose Admin Acetaminophen (Tylenol) 1,000 mg Q8H PRN ORAL MILD PAIN/TEMP >100.4F 05/06/20 16:00 06/05/20 15:59 Albuterol Sulfate (Proventil MDI) 2 puff Q6HRT INH 05/06/20 19:00 08/04/20 18:59 05/10/20 01:24 Amiodarone HCl (Cordarone) 200 mg EVERY 12 HOURS ORAL 05/09/20 21:00 08/04/20 20:59 05/09/20 21:01 Apixaban (Eliquis) 5 mg BID ORAL 05/06/20 18:00 08/04/20 17:59 05/09/20 18:12 Artificial Tears (Akwa-Tears) 1 drop FIVE TIMES A DAY BOTH EYES 05/06/20 19:00 06/05/20 18:59 05/10/20 07:25 Ascorbic Acid (Vitamin C) 500 mg DAILY ORAL 05/07/20 09:00 06/06/20 08:59 05/09/20 08:58 Atorvastatin Calcium (Lipitor) 10 mg BEDTIME ORAL 05/08/20 21:00 06/05/20 20:59 05/09/20 21:00 Barium Sulfate (Varibar Honey) 250 ml NOW PRN MC RAD 05/09/20 21:15 05/12/20 21:11 Barium Sulfate (Varibar [place]) 240 ml NOW PRN MC RAD 05/09/20 21:15 05/12/20 21:11 Barium Sulfate (Varibar Pudding) 230 ml NOW PRN MC RAD 05/09/20 21:15 05/12/20 21:11 Barium Sulfate (Varibar Thin Liquid powder) 148 gm NOW PRN MC RAD 05/09/20 21:15 05/12/20 21:11 Ceftriaxone Sodium 1 gm/ Dextrose 55 ml @ 110 mls/hr Q24H IVPB 05/09/20 21:15 05/16/20 21:14 05/09/20 22:10 Docusate Sodium (Colace) 100 mg TWICE A DAY ORAL 05/08/20 18:00 06/07/20 17:59 05/09/20 18:12 Dorzolamide HCl (Trusopt) 1 drop BID BOTH EYES 05/06/20 18:00 06/05/20 17:59 05/09/20 18:12 Doxycycline Monohydrate (Doxycycline Monohydrate) 100 mg EVERY 12 HOURS ORAL 05/09/20 21:00 05/16/20 20:59 05/09/20 22:10 Finasteride (Proscar) 5 mg DAILY ORAL 05/07/20 09:00 08/05/20 08:59 05/09/20 08:57 Ipratropium [place] (Atrovent) 500 mcg Q4H PRN HHN Shortness of Breath 05/09/20 21:15 05/14/20 21:14 Iron Sucrose 100 mg/Sodium Chloride 55 ml @ 200 mls/hr BEDTIME IV 05/08/20 21:00 05/17/20 21:17 05/09/20 21:00 Latanoprost (Xalatan) 1 drop BEDTIME BOTH EYES 05/06/20 21:00 06/05/20 20:59 05/09/20 21:00 Levothyroxine Sodium (Synthroid) 25 mcg DAILY@0630 ORAL 05/09/20 06:30 06/08/20 06:29 05/10/20 06:03 Magnesium Hydroxide (Mom) 30 ml DAILY PRN ORAL Constipation 05/06/20 16:00 06/05/20 15:59 Metoprolol Tartrate (Lopressor) 50 mg Q12HR ORAL 05/06/20 21:00 08/04/20 20:59 05/09/20 21:00 Multivitamins Therapeutic (Therapeutic Multivitamin) 1 ea DAILY ORAL 05/07/20 09:00 06/06/20 08:59 05/09/20 08:57 Nitroglycerin (Ntg) 0.4 mg Q5MIN X 3 DOSES PRN SL CHEST PAIN 05/06/20 16:00 06/05/20 15:59 Non-Formulary Medication (Non-Formulary Med) 1 ea DAILY INH 05/07/20 09:00 06/06/20 08:59 UNV Non-Formulary Medication (Non-Formulary Med) 1 ea DAILY TOPIC 05/07/20 09:00 05/22/20 09:00 UNV Pantoprazole (Protonix) 40 mg DAILY ORAL 05/08/20 12:45 06/07/20 12:44 05/09/20 08:58 Polyethylene Glycol (Miralax) 17 gm Q12H PRN ORAL Constipation 05/06/20 16:00 06/05/20 15:59 Prednisone (predniSONE) 20 mg DAILY ORAL 05/07/20 09:00 06/06/20 08:59 05/09/20 08:58 Salmeterol Xinafoate/ Fluticasone (Advair 250/50 Diskus) 1 puffs EVERY 12 HOURS INH 05/06/20 21:00 08/04/20 20:59 05/09/20 21:36 Theophylline (Lucien-Dur) 200 mg Q12HR ORAL 05/06/20 21:00 08/04/20 20:59 05/09/20 21:01 Tramadol HCl (Ultram) 50 mg Q8H PRN ORAL Moderate Pain (Pain Scale 4-6) 05/06/20 16:00 05/13/20 15:59 Assessment/Plan Assessment/Plan Impression: Congestive Heart Failure Atrial fibrillation with RVR- on Eliquis V tachycardia Chronic Obstructive Pulmonary Disease Possible Pneumonia Urinary tract infection Elevated TSH - started on Levothyroxine Plan: Antibiotics and check cultures HHN O2 PRN Diurese per Cardiology/Renal R/o DVT- venous pending Aspiration precautions ST evaluation impression, plan, and exam edited and reviewed in detail care discussed with Vikash Curran MD May 10, 2020 07:34
--- NOTE | 2020-05-10 07:45 | NUR ---
Nursing: pt on cardiac rehabilitation specialist no signs of cardiac or respiratory distress at this time. AOx4. Bed is locked and lowest position. Call light within reach. Pt just had breakfast.
--- NOTE | 2020-05-10 08:37 | NUR ---
Speech Pathology Note (Dysphagia Evaluation) Indication of Evaluation: New onset of Abnormal CXR. ? concerning for pneumonia, to rule out aspiration Brief Note: Mr. Baker is an 84 years old AAM who is a resident of SNF was recently dx with A-fib RVR required medical regimen at [place]. Pt readmitted [facility] on 05/06/2020 for tachycardia (150). He was found to have A-fib RVR at ED and subsequently admitted for cardiac management. Initial work up was remarkable for creatine 1.3, BNP 16.506, TSH elevation, were continued to managed by specialist. Pt is currently waiting for cardiac ablation which required to transfer to [place] for higher level care. Current vitals and labs are all stable and tolerating PO diet per report on solid diet. Findings: Mr. Baker is a great historian. he is alert and oriented x 4. His length of utterance is short, voice is adequate. The facial and oropharyngeal motility and dental(denture) are normal for speech. Pt was observed to complete his all meal and he tolerated thin liquid without s.s of aspiration. Interpretation: 1. Functional swallow Plan: 1. Regular diet and thin liquid I will sign off from service, no further tx. is indicated at this time. Mitchel Kwok
--- NOTE | 2020-05-10 09:09 | Nephrology Progress Note ---
Assessment/Plan Problem List: (1) LD (acute kidney injury) (2) Anemia (3) Atrial fibrillation with RVR (4) UTI (urinary tract infection) (5) Proteinuria Assessment Acute renal failure, serum creatinine jack to 1.4 Admitted with atrial fibrillation with fast ventricular rate Evidence of urinary tract infection History of hypertension Anemia Coronary artery disease Proteinuria Plan May 10: No chemistry panel done today. Will check labs tomorrow. Continue to rest. May 09: Serum creatinine 1.4 unchanged. Serum potassium 5.4. Kayexalate ordered. Continue rest. Continue to monitor electrolytes and renal parameters. Intravenous iron ordered Continue per cardiology advice Rate control BP control Monitor renal parameters Avoid nephrotoxic's Per orders Subjective ROS Limited/Unobtainable: No Constitutional: Reports: malaise Objective Objective Last 24 Hour Vital Signs Date Time Temp Pulse Resp B/P (MAP) Pulse Ox O2 Delivery O2 Flow Rate FiO2 05/10/20 04:00 97.9 57 16 125/58 (80) 99 05/10/20 04:00 55 05/10/20 01:27 61 18 98 Nasal Cannula 2.0 28 05/10/20 01:24 61 18 98 Nasal Cannula 2.0 28 05/10/20 00:00 60 05/10/20 00:00 97.5 60 18 122/65 (84) 99 05/09/20 21:00 Nasal Cannula 3.0 Nasal Cannula 3.0 05/09/20 21:00 63 134/68 05/09/20 20:00 63 05/09/20 20:00 98.1 63 16 134/68 (90) 98 05/09/20 19:46 65 18 97 Nasal Cannula 2.0 28 05/09/20 19:43 63 18 96 Nasal Cannula 2.0 28 05/09/20 19:43 96 Nasal Cannula 2.0 28 05/09/20 16:00 62 05/09/20 16:00 96.8 62 22 136/68 (90) 94 05/09/20 13:49 70 18 98 Nasal Cannula 2.0 28 05/09/20 13:49 69 18 98 Nasal Cannula 2.0 28 05/09/20 12:48 65 05/09/20 12:00 96.9 65 20 133/67 (89) Intake and Output 05/09/20 05/10/20 19:00 07:00 Intake Total 360 ml 250 ml Output Total 250 ml 450 ml Balance 110 ml -200 ml Intake Oral 360 ml 250 ml Output Urine Total 250 ml 450 ml No chemistry panel done today Height (Feet): 5 Height (Inches): 5.00 Weight (Pounds): 138 General Appearance: no apparent distress, lethargic Cardiovascular: normal rate Respiratory/Chest: decreased breath sounds Abdomen: soft Objective No change Cliff Connolly MD May 10, 2020 09:09
--- NOTE | 2020-05-10 09:20 | NUR ---
*-*DISCHARGE PLANNING*-* SPOKE TO CHARGE NURSE DOC AT [facility] T: [phone] PH/ CM INSTRUCTED TO CALL BACK IN 15MIN FOR UPDATE BARRIERS FOR TRANSFER: DOC STATED NO NURSE AT THIS TIME FOR CARDIAC ABLATION Addendum: 05/10/20 at 1000 by IHSAN VALDEZ LVN JAYDON SPOKE TO DOC PATIENT ACCEPTED TO [facility] ROOM# [id number] T: [phone] ~ NURSE REPORT INSTRUCTED TO SEND AT 11AM INSTRUCTED TO SEND @11AM [facility] AUTOMOTIVE SERVICE TECHNICIAN TIME 11AM
[2020-05-10 09:47] VITALS: BP 137/67
[2020-05-10 09:49] VITALS: BP 137/67
[2020-05-10] MEDS: Metoprolol Tartrate 50mg tab ORAL SCH (09:49)
[2020-05-10] MEDS: Doxycycline Monohydrate 100mg ORAL SCH (09:49)
[2020-05-10] MEDS: Ascorbic Acid 500mg tab ORAL SCH (09:49)
[2020-05-10] MEDS: Docusate 100mg cap ORAL SCH (09:50)
[2020-05-10] MEDS: Multivitamin w/Minerals tab ORAL SCH (09:50)
[2020-05-10] MEDS: Theophylline ER 100mg ORAL SCH (09:50)
[2020-05-10] MEDS: Amiodarone 200mg tab ORAL SCH (09:50)
[2020-05-10] MEDS: Eliquis 5mg tablet ORAL SCH (09:50)
[2020-05-10] MEDS: Dorzolamide 2% 10ml Btl BOTH EYES SCH (09:51)
--- NOTE | 2020-05-10 10:08 | NUR ---
*-*DISCHARGE PLANNING*-* PATIENT ACCEPTED TO: [facility] ROOM# 232 T: [phone] ~ NURSE REPORT [facility] LOGGING SPECIALIST TIME 11AM S/W MISHA [id number].
[2020-05-10] MEDS: Wixela 250/50 Inhaler - 60 dose INH SCH ×2 (10:50→13:00)
--- NOTE | 2020-05-10 10:55 | Cardiac Electrophysiology PN ---
Assessment/Plan Assessment/Plan 1. Recurrent typical atrial flutter with rapid ventricular response. The patient received IV metoprolol 5 mg x3 in the emergency room On metoprolol 50 mg b.i.d., amiodarone 200 mg bid and Eliquis 5 mg b.i.d. Will need transfer to [facility] for atrial flutter ablation 2. 9 beats of nonsustained VT. On beta gunnar 2. Hypertension. Continue metoprolol 50 mg b.i.d. 3. History of anemia. 4. Status post recent [id number] myocardial infarction with chest pain, inferolateral T-wave inversion, elevated troponin. Continue aspirin, beta- gunnar, and statin. Will need transfer to [facility] for Cardiac cath and flutter ablation Hold Rodrigo TAMEZ RN Subjective Subjective Still goes in and out of Atrial flutter with RVR.Had 10 beats of VT 05/08/20 Going to [facility] for cardiac cath and ablation Objective Last 24 Hour Vital Signs Date Time Temp Pulse Resp B/P (MAP) Pulse Ox O2 Delivery O2 Flow Rate FiO2 05/10/20 09:49 67 137/67 05/10/20 09:47 96.9 67 22 137/67 (90) 97 05/10/20 09:45 72 18 95 Nasal Cannula 2.0 05/10/20 09:45 72 18 95 Nasal Cannula 2.0 05/10/20 09:44 95 Nasal Cannula 2.0 05/10/20 04:00 97.9 57 16 125/58 (80) 99 05/10/20 04:00 55 05/10/20 01:27 61 18 98 Nasal Cannula 2.0 05/10/20 01:24 61 18 98 Nasal Cannula 2.0 28 05/10/20 00:00 60 05/10/20 00:00 97.5 60 18 122/65 (84) 99 05/09/20 21:00 Nasal Cannula 3.0 Nasal Cannula 3.0 05/09/20 21:00 63 134/68 05/09/20 20:00 63 05/09/20 20:00 98.1 63 16 134/68 (90) 98 05/09/20 19:46 65 18 97 Nasal Cannula 2.0 05/09/20 19:43 63 18 96 Nasal Cannula 2.0 05/09/20 19:43 96 Nasal Cannula 2.0 28 28/20 16:00 62 05/09/20 16:00 96.8 62 22 136/68 (90) 94 05/09/20 13:49 70 18 98 Nasal Cannula 2.0 05/09/20 13:49 69 18 98 Nasal Cannula 2.0 05/09/20 12:48 65 05/09/20 12:00 96.9 65 20 133/67 (89) Intake and Output 05/09/20 05/10/20 19:00 07:00 Intake Total 360 ml 250 ml Output Total 250 ml 450 ml Balance 110 ml -200 ml Intake Oral 360 ml 250 ml Output Urine Total 250 ml 450 ml Objective HEAD AND NECK: No JVD. LUNGS: Clear. CARDIOVASCULAR: Regular S1 and S2 with no gallop or murmur. ABDOMEN: Soft. EXTREMITIES: No pitting edema. Cade Saeed MD May 10, 2020 10:55
--- NOTE | 2020-05-10 14:00 | NUR ---
NURSE NOTES: pt was transferred to [facility]. Pt's daughter agreed for pt to have procedures per Junie clinical case manager and per Dr. Mckeon phone conversation. Pt was transferred via ambulance in stable condition. All belongings were given to pt. Iv was kept for [facility] to use, as er Radha request. carpet technician was taken off from pt before he left. Report was given to Radha/RN at [facility]. Also family member was notify of pt transfer
--- NOTE | 2020-05-11 13:56 | Discharge Summary ---
Discharge Summary Discharge Summary _ DATE OF ADMISSION: 05/06/2020 DATE OF DISCHARGE: 05/10/2020 DISCHARGED BY: Dr. Meraz REASON FOR ADMISSION: 84 years old male with past medical history of hypertension, COPD, atrial fibrillation, presented with complaints of palpitations , started earlier in the morning. Symptoms reported as moderate to severe in intensity and constant. Patient denied chest pain or shortness of breath. No nausea or vomiting. No fever or chills. No abdominal pain. Upon evaluation heart rate was in 150s. Patient required supplemental oxygen via nasal cannula. Rapid COVID-19 in emergency department was negative. Chest x-ray demonstrated stable right mid and lower lung opacity , possibly on the chronic basis. Laboratory work-up revealed no leukocytosis , hemoglobin 9.1, hematocrit 30.1, platelet counts 183. Urinalysis revealed borderline pyuria , moderate bacteria, negative for leukocyte esterase , +2 protein. Chemistry showed CO2 34, BUN 30, creatinine 1.3. Glucose 123. Pro BNP 96520, troponin 0.041. EKG revealed atrial fibrillation with rapid ventricular response . Patient admitted with atrial fibrillation with rapid ventricular response and possible UTI. CONSULTANTS: quarter trimmer Dr. Mckeon crossbar frame wirer Dr. Alonso pulmonary Dr. Bueno club former Dr. Connolly [facility] COURSE: Patient admitted to telemetry floor. [facility] followed. Patient initially received IV metoprolol 5 mg x 3 in emergency department. Heart rate stabilized. Patient then started on l oral metoprolol, amiodarone and anticoagulation with Eliquis. [facility] recommended transfer to higher level of care for atrial flutter ablation. Patient also noted to have nine beats of nonsustained ventricular tachycardia . Patient was on beta-gunnar. Blood pressure was managed with metoprolol. Patient had recent NSTEMI with chest pain , inferior lateral T wave inversion and elevated troponin. Antiplatelet therapy with aspirin , beta blockage and statin continued. Eliquis was on hold prior to transfer due to impending ablation. Venous duplex bilateral lower extremity revealed no evidence of acute DVT. Supplemental oxygen provided and titrated to keep oximetry above 92%. Pulmonary toilet provided. Hand-held nebulizer therapy with a bronchodilator provided as needed. Trial of theophylline instituted. Patient was on oral steroids Advair inhaler provided. Anti-passive provided as needed. Aspiration precaution maintained. Patient passed swallow evaluation. Diet texture provided as per speech therapist recommendation with aspiration /reflux precautions. Patient noted to have elevated TSH 10.191 and free T4 0.8. Patient started on low dose of levothyroxine -25 mcg daily. Automotive Exhaust Emissions Technician recommended continue current dose and repeat TSH and free T4 in 3-4 weeks. Patient was on antibiotics for possible UTI. Urine culture revealed mixed urogenital contaminant. Patient remained afebrile, no leukocytosis. Renal parameters and electrolytes were closely monitored. Electrolytes corrected as needed, nephrotoxic's were avoided. Hemoglobin and hematocrit were closely monitored with goal to keep hemoglobin above 7 . Prior to discharge hemoglobin 8.2, hematocrit 27.3. Patient will need close monitoring of hemoglobin and hematocrit in the accepting facility, especially in [place] of being on anticoagulation. Transfer was arranged to [facility] to telemetry floor for atrial flutter ablation. Patient was stable for transfer via [facility] ambulance. FINAL DIAGNOSES: Recurrent atrial flutter with rapid ventricular response Hypertension Anemia Recent NSTEMI Nine beats of nonsustained ventricular tachycardia Acute kidney injury Subclinical hypothyroidism with elevated TSH COPD CHF UTI DISCHARGE MEDICATIONS: List of medication was sent to accepting facility. DISCHARGE INSTRUCTIONS: Patient was discharged to telemetry floor to [facility] for ablation of atrial flutter. I have been assigned to dictate discharge summary for this account. I was not involved in the patient's management. Neyda Ramires NP May 11, 2020 13:56
== END 2020-05-10 14:08 | disposition short-term general hospital (02) | DRG 308 ==
LOC: EDBD 10:17 → EDBEDREQ 10:34 → EMR 10:44 → EDBEDREQ 12:13 → 2E 12:35
DX: I48.91 Unspecified atrial fibrillation (principal); J18.9 Pneumonia, unspecified organism; E43 Unspecified severe protein-calorie malnutrition; N17.9 Acute kidney failure, unspecified; N39.0 Urinary tract infection, site not specified; D64.9 Anemia, unspecified; I10 Essential (primary) hypertension; E03.2 Hypothyroidism due to medicaments and other exogenous substances; T46.2X5A Adverse effect of other antidysrhythmic drugs, initial encounter; I25.2 Old myocardial infarction; I25.10 Atherosclerotic heart disease of native coronary artery without angina pectoris; J44.9 Chronic obstructive pulmonary disease, unspecified; Z88.8 Allergy status to other drugs, medicaments and biological substances; I47.2 Ventricular tachycardia; I48.92 Unspecified atrial flutter; Z68.23 Body mass index [BMI] 23.0-23.9, adult
CPT/HCPCS: 36415; 71045; 80053; 80061; 81001; 81003; 82607; 82728; 82746; 82977; 83036; 83540; 83550; 83690; 83735; 83880; 84100; 84439; 84443; 84481; 84484; 84550; 85025; 85610; 85730; 86140; 87081; 87086; 93005; 93970; 94640; 96361; 99291; J7030; U0002